=== PATIENT | male | born 1975 | race Caucasian/White ===

== ENCOUNTER 2019-09-28 18:07 | Emergency (ER) | payer OTHER, BC, SELFPAY ==
[2019-09-28] VITALS (15 sets, daily range): BP systolic 134–149; BP diastolic 93–107; PULSE 61–83; RESP 8–20; TEMP 37.1; O2SAT 95–99
[2019-09-28] MEDS: Metoprolol 50 MG TAB 100 MG PO (18:46)
--- NOTE | 2019-09-28 18:48 | ED.GENADUL_ITS ---
Discharge Plan Disposition Patient Disposition: HOME Condition: Stable Discharge Details Chief Complaint: Palpitatns Clinical Impression: Atrial fibrillation Primary Care Provider: Clayton Reid ED Provider: Bunny Petersen Home Meds and New Rx's Prescriptions: No Action metoprolol succinate 100 mg Tablet Extended Release 24 Hr 100 mg PO DAILY RF: 0 aspirin [Aspir-81] 81 MG tablet,delayed release (DR/EC) 81 mg PO DAILY RF: 0 Discharge Instructions Instructions: A-fib (Atrial Fibrillation) (ED) Additional Instructions: At this time you are asymptomatic and have not gone into atrial fibrillation while under my care. I spoke with your cardiology team, they recommend increasing metoprolol 100 mg to twice a day. I do recommend that you follow-up on Saturday as already scheduled. Please watch for new or worsening symptoms and return to the ER for any concerns Medical Decision Making 44-year-old gentleman who is currently being followed by cardiology, wearing a Holter monitor, told to come to the ER today because apparently he went into atrial fibrillation multiple times. He never felt this and is currently asymptomatic. He appears well, nontoxic and his examination is unremarkable. Will obtain EKG and reach out to his cardiology team. EKG obtained at 1816, reviewed and interpreted with Dr. Matta. Reveals sinus bradycardia, ventricular rate of 59. No acute ST elevation or depression segments. No atrial fibrillation. I was able to speak with his basketballs and footballs reverser, Dr. Mark. He received multiple calls and rhythm strips through his Holter monitor company. Patient appears to have gone in and out of atrial fibrillation multiple times today, heart rate going as high as 180s. He recommends increasing his metoprolol 100 mg from once a day to twice daily. Will give him a dose now. He recommends additional monitoring in the ER and he will follow him as an outpatient on Saturday. Discussed this plan with patient. He is willing to stay for another half an hour but needs to get home and feed his children. Will observe him for another half an hour and if remains asymptomatic we will discharge. Patient received his p.o. metoprolol. He remains asymptomatic under my care and was observed in the ER for over an hour. He was on the playground monitor, no evidence of going in or out of atrial fibrillation. Upon reevaluation his heart rate was in the 70s HPI General Mode of arrival: ambulatory . Date/Time Provider Initiated Documentation: 09/28/19 18:11 . Limitations to Documentation: no limitations . Information obtained by: patient . HPI Narrative: This is a 44-year-old gentleman with a history of atrial fibrillation presenting to the ER at the request of his cardiology team. He received a call from his basketballs and footballs reverser at the [facility] stating that his Holter monitor revealed he went into atrial fibrillation multiple times today, rate in the 170s and 180s. Patient reports that he felt no evidence that he went into atrial fibrillation, denies chest pain, shortness of breath, palpitations. He does admit to increased stress recently. He originally sought medical attention because he did have palpitations and felt as though there is something wrong, it turned out after wearing a Holter monitor for 9 days, that he was going to atrial fibrillation. He is currently taking oral metoprolol once a day, 100 mg. He denies any headache, recent illness or trauma, abdominal pain, nausea, vomiting, swelling or pain in his legs, numbness, tingling, weakness. Related Data Home Medications Medication Instructions Recorded Confirmed aspirin [Aspir-81] 81 mg PO DAILY 09/22/16 09/28/19 metoprolol succinate 100 mg PO DAILY 09/28/19 09/28/19 Allergies Allergy/AdvReac Type Severity Reaction Status Date / Time clindamycin Allergy Mild Skin Rash Unverified 09/28/19 18:17 General Stated Complaint: Palpitatns MAKAYLA: 3 Review of Systems Constitutional Constitutional: Denies fatigue, Denies fever(s) and Denies weakness Cardiovascular Cardiovascular: Denies chest pain and Denies dyspnea Respiratory Respiratory: Denies cough and Denies dyspnea Gastrointestinal Gastrointestinal: Denies abdominal pain, Denies nausea and Denies vomiting Musculoskeletal Musculoskeletal: Denies back pain, Denies numbness and Denies tingling Integumentary/Breasts Skin/Breast: Denies rash Neurologic Neurologic: Denies numbness, Denies tingling and Denies weakness Endocrine Endocrine: Denies fatigue [facility] Social History Smoking/Tobacco Use Status: Never Alcohol Intake: current Alcohol Intake frequency: 0-2 drinks per day Drug use: Never Substance use type: does not use Do you feel safe at home: Yes Do you feel safe in your relationship?: Yes Exam Const General: cooperative, healthy appearing, comfortable and no acute distress Orientation: alert, awake and oriented x3 HENMT Head: normal to inspection, normocephalic and atraumatic Mouth: moist mucous membranes Eyes Conjunctivae: conjunctivae normal Neck Neck: normal visual inspection, full ROM, trachea midline and supple Chest Chest: normal inspection of the chest and normal palpation of entire chest wall Resp Effort & Inspection: normal respiratory effort and able to speak in complete sentences Auscultation: clear to auscultation bilaterally Cardio Rate: regular rate Rhythm: regular rhythm GI Palpation: soft and nontender Back/Spine/Pelvis Back: No back tenderness Skin General skin exam: no rashes or lesions noted Neuro General: patient alert, patient awake, moves all extremities and no focal motor deficits Sensory Exam: no sensory deficits noted Extrem General: normal to inspection, no pedal edema, no calf tenderness and normal gait Psych Appearance: grossly normal Mental Status: mental status grossly normal Course Vital Signs Vital signs: Vital Signs Temperature 37.1 C 09/28/19 18:12 Pulse 80 09/28/19 18:12 Respiratory Rate 12 09/28/19 18:12 Blood Pressure 149/107 H 09/28/19 18:12 Pulse Oximetry 95 09/28/19 18:12 Temperature 37.1 C 09/28/19 18:12 Temperature Source Skin 09/28/19 18:12 Pulse 71 09/28/19 18:22 Pulse 66 09/28/19 18:22 Respiratory Rate 13 09/28/19 18:22 Respiratory Effort Non-Labored 09/28/19 18:23 Blood Pressure 149/107 H 09/28/19 18:22 Blood Pressure Mean 116 09/28/19 18:22 Blood Pressure Position Sitting 09/28/19 18:12 Pulse Oximetry 99 09/28/19 18:22 Oxygen Delivery Method Room Air 09/28/19 18:12 Oxygen Flow Rate 0 09/28/19 18:12 Pain Level 0 09/28/19 18:12
== END 2019-09-28 19:28 | disposition home or self-care (01) ==
PROVIDERS: Emergency Provider Physician Assistant; PCP Family Medicine
DX: I48.91 Unspecified atrial fibrillation (principal)
CPT/HCPCS: 93005; 99284; 93010

== ENCOUNTER 2020-04-28 03:21 | Outpatient (CLI) | payer BC, SELFPAY ==
[2020-04-28 15:55] LABS: Abs Immature Grans 0.03 10^3/uL (0.0-0.06); Absolute Basophil Count 0.05 10^3/uL (0.0-0.2); Absolute Eosinophil Count 0.13 10^3/uL (0.0-0.7); Absolute Lymphocyte Count 2.97 10^3/uL (1.2-3.4); Absolute Monocyte Count 0.79 10^3/uL (0.1-0.8); Absolute Neutrophil Count 5.65 10^3/uL (1.2-6.7); Basophils % 0.5; Eosinophils % 1.4; HGB 16.8 g/dL (13.5-17.5); Immature Grans % 0.3; Lymphocytes % 30.9; MCH 30.4 pg (27.0-33.0); MPV 8.5 fL (8.0-11.0); Monocytes % 8.2; Neutrophils % 58.7; Nucleated RBC 0 %; Platelet Count 270 10^3/uL (130-400); RBC 5.52 10^6/uL (4.36-5.78); RDW 12.2 % (11.8-14.1); RDW-SD 38.7 fL; WBC 9.62 10^3/uL (4.4-10.8)
[2020-04-28 18:06] LABS: Calculated LDL 113 mg/dL (<100); Cholesterol 191 mg/dL (<200); HDL Cholesterol 29 mg/dL (40-60); Triglyceride 249 mg/dL (<150)
== END 2020-04-28 03:41 ==
PROVIDERS: PCP Family Medicine; Visit Provider Family Medicine
DX: E29.1 Testicular hypofunction (principal)
CPT/HCPCS: 36415; 80061; 85025

== ENCOUNTER 2020-10-03 19:29 | Emergency (ER) | payer OTHER, SELFPAY ==
[2020-10-03 19:30] VITALS: BP 149/90; PULSE 102; RESP 18; TEMP 36.8; O2SAT 98
--- NOTE | 2020-10-03 19:43 | ED.GENADUL_ITS ---
Discharge Plan Disposition Patient Disposition: HOME Condition: Good Discharge Details Clinical Impression: Knee swelling Primary Care Provider: Clayton Reid ED Provider: Gloria Ibanez Home Meds and New Rx's Prescriptions: Continued metoprolol succinate 100 mg Tablet Extended Release 24 Hr 100 mg PO DAILY RF: 0 aspirin [Aspir-81] 81 MG tablet,delayed release (DR/EC) 81 mg PO DAILY RF: 0 diltiazem HCl 120 mg capsule,extended release 24 hr 120 mg PO DAILY RF: 0 lisinopril-hydrochlorothiazide 20-25 mg tablet 1 tab PO DAILY RF: 0 Discharge Instructions Instructions: Knee Sprain (ED), Hinged Knee Brace (ED) Additional Instructions: Encourage rest, ice, elevation. Tylenol and ibuprofen as needed for discomfort. Please continue with hinged knee brace until reevaluated by orthopedics. Please call orthopedics tomorrow to schedule appointment, number listed below. If you develop any new or worsening symptoms please seek care urgently once again. Referrals: Joce Small MD [MD CONSULTING PHYSICIAN] - Discharge Data Discharge Date/Time-TO BE ENTERED AT DEPARTURE: 10/03/20 22:24 Medical Decision Making Patient is a pleasant 45-year-old male presenting today with chief complaint of left knee injury. 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 Reports that when in his position one of his cows began kicking his left knee. States that the knee was wedged between the cow and the metal bars of the fence. He denies previous injury or surgery to this knee. FINDINGS: Bones/joints: Small joint effusion. Small superior pole patellar enthesophyte. Subtle cortical irregularity of the lateral margin of the lateral tibial articular surface may represent acute fracture. Knee joint spacing and alignment are anatomic. Normal osseous mineralization. Soft tissues: Normal. IMPRESSION: Possible tiny mildly displaced fracture of lateral margin of the lateral tibial articular surface. Based on mechanism and patient area of discomfort, I am concerned for tibial fracture and feel that CT for further evaluation is appropriate FINDINGS: Bones/joints: Small joint effusion. Small superior pole patellar enthesophyte. [id number] lateral patellofemoral compartment joint space narrowing. Cortical defect of the lateral tibial articular surface has a chronic appearance, likely related to prior trauma. No acute fracture. ACL and PCL appear to be intact. Soft tissues: Normal. IMPRESSION: 1. No acute fracture. Lateral tibial articular surface cortical abnormality is likely related to prior trauma. 2. Small joint effusion. 3. Lateral patellofemoral compartment degenerative joint space narrowing. 4. Superior pole patellar enthesophyte, consistent with chronic distal quadriceps enthesopathy. Discussed this finding with the patient. Fractures been ruled out. Advised MCL strain based on physical exam as well contusion. Encourage rest, ice, elevation. Tylenol and ibuprofen as needed for discomfort. We will place in a hinged knee brace for support. Advised follow-up with orthopedics. Will call tomorrow to schedule follow-up appointment. Return precautions were discussed. We discussed activities that he should avoid. All the question and concerns were addressed and he is in agreement this plan HPI General Mode of arrival: ambulatory . Date/Time Provider Initiated Documentation: 10/03/20 19:42 . Limitations to Documentation: no limitations . Information obtained by: patient and RN notes reviewed . History of Present Illness 45 year old M presents to the emergency department with the chief complaint of left knee pain, described as moderate, with intensity rated at 3. Quality is described as aching, and is localized to the left and lower extremity. Patient reports no radiation. Patient started experiencing this hour(s) and it has been constant. Immobilization improves symptom(s), Movement worsens symptoms (weight bearing) . Patient notes no other symptoms.. Patient did receive the following treatments prior to arrival, cold therapy Related Data Home Medications Medication Instructions Recorded Confirmed aspirin [Aspir-81] 81 mg PO DAILY 09/22/16 10/03/20 metoprolol succinate 100 mg PO DAILY 09/28/19 10/03/20 diltiazem HCl 120 mg PO DAILY 10/03/20 10/03/20 lisinopril-hydrochlorothiazide 1 tab PO DAILY 10/03/20 10/03/20 Allergies Allergy/AdvReac Type Severity Reaction Status Date / Time clindamycin Allergy Mild Skin Rash Unverified 10/03/20 19:39 General Stated Complaint: Orthopedic MAKAYLA: 3 Review of Systems Constitutional Constitutional: Reports as per HPI, Denies chills, Denies fever(s), Denies headache(s) and Denies weakness ENT Ears, Nose, Mouth, and Throat: Denies headache(s) Cardiovascular Cardiovascular: Reports as per HPI Respiratory Respiratory: Reports as per HPI and Denies cough Musculoskeletal Musculoskeletal: Reports as per HPI and Denies tingling Integumentary/Breasts Skin/Breast: Reports as per HPI, Denies rash and Denies wounds Neurologic Neurologic: Reports as per HPI, Denies headache(s), Denies tingling, Denies paresthesias and Denies weakness [facility] Social History Smoking/Tobacco Use Status: Never Smoking risk assessment performed?: Yes Alcohol Intake: current Alcohol Intake frequency: 0-2 drinks per day Drug use: Never Substance use type: does not use Do you feel safe at home: Yes Do you feel safe in your relationship?: Yes Exam Const General: cooperative, healthy appearing, comfortable, no acute distress, well d eveloped and well groomed Nutritional Appearance: average body habitus and well nourished Orientation: alert and awake Resp Effort & Inspection: normal respiratory effort, able to speak in complete sentences and no respiratory distress Cardio Rate: regular rate Rhythm: regular rhythm Skin General skin exam: no rashes or lesions noted Lesions: no lesions Rashes: no rashes Trauma: no lacerations or abrasions Neuro General: patient alert and patient awake Cognition: normal cognition Speech: speech normal Gait: normal gait Motor: muscle tone normal throughout Sensory Exam: no sensory deficits noted Extrem Left lower extremity: normal to inspection, full ROM (pain with full flexion), normal capillary refill, knee Details: normal to inspection, tenderness Location: of the medial joint line, normal ROM, knee ligament exam normal Details: anterior drawer test normal, posterior drawer test normal and varus stress test normal and knee ligament exam abnormal Details: valgus stress test; no swelling, no abrasions, no lacerations, no ecchymosis, no crepitus and no deformity, lower leg Details: normal to inspection and no edema; no erythema, no tenderness, no localized swelling and no deformity and foot Details: normal capillary refill and vascular exam Details: dorsalis pedis pulse present and posterior tibial pulse present; no tenderness Psych Appearance: grossly normal and well kempt Mental Status: mental status grossly normal Speech and Movement: speech and movement normal Course Vital Signs Vital signs: Vital Signs Temperature 36.8 C 10/03/20 19:30 Pulse 102 H 10/03/20 19:30 Respiratory Rate 18 10/03/20 19:30 Blood Pressure 149/90 H 10/03/20 19:30 Pulse Oximetry 98 10/03/20 19:30 Temperature 36.8 C 10/03/20 19:30 Temperature Source Skin 10/03/20 19:30 Pulse 102 H 10/03/20 19:30 Respiratory Rate 18 10/03/20 19:30 Respiratory Effort 10/03/20 19:42 Blood Pressure 149/90 H 10/03/20 19:30 Blood Pressure Position Sitting 10/03/20 19:30 Pulse Oximetry 98 10/03/20 19:30 Oxygen Delivery Method Room Air 10/03/20 19:30 Oxygen Flow Rate 0 10/03/20 19:30 Pain Level 3 10/03/20 19:30 Comment 10/03/20 19:30
--- NOTE | 2020-10-03 19:45 | DI.RAD_ITS ---
Exam(s) XR KNEE LT 4V AP,LAT,KENTRELL,PAT EXAM: XR KNEE LT 4V AP,LAT,KENTRELL,PAT CLINICAL HISTORY: kicked by cow, medial pain TECHNIQUE: COMPARISON: No exams were available for comparison FINDINGS: Four views were obtained. There is cortical deformity of the lateral aspect of the proximal tibia xavi picious for fracture, however CT examination was subsequently obtained and showed this bony deformity to be old. No other bony abnormality seen. Knee joint effusion noted. IMPRESSION: RADIATION DOSE DELIVERED: Total DLP
[2020-10-03] MEDS: Ibuprofen 600 MG TAB PO (19:57)
[2020-10-03] MEDS: Acetaminophen 325 MG TAB 650 MG PO (19:57)
--- NOTE | 2020-10-03 20:15 | DI.CT_ITS ---
Exam(s) CT LOWER EXTREMITY LT WO EXAM: CT LOWER EXTREMITY LT WO CLINICAL HISTORY: concern for possible tibial fracture TECHNIQUE: COMPARISON: No exams were available for comparison FINDINGS: CT examination of the left knee was performed to evaluate possible fracture seen on plain films today . There is cortical deformity which appears old of the most lateral aspect of the tibial articular langley rface. There is no evidence of acute fracture or dislocation. There is moderate-sized joint effusion. Prominent superior pole patellar enthesophyte noted. No other bony abnormality seen. IMPRESSION: RADIATION DOSE DELIVERED: 236.75mGy.cm Total DLP RADIATION OPTIMIZATION: All CT scans at this facility use at least one of these dose optimization te chniques: automated exposure control; mA and/or kV adjustment per patient size (includes targeted exa ms where dose is matched to clinical indication); or iterative reconstruction. Is
--- NOTE | 2020-10-03 20:25 | DI.VRAD_ITS ---
PROCEDURE INFORMATION: Exam: XR Left Knee Exam date and time: 10/03/2020 8:10 PM Age: 45 years old Clinical indication: Knee; Left; Patient HX: Kicked by cow, medial pain TECHNIQUE: Imaging protocol: XR Left knee. Views: 4 or more views. COMPARISON: US LEFT EXTREMITY ULTRASOUND 09/25/2016 5:18 PM FINDINGS: Bones/joints: Small joint effusion. Small superior pole patellar enthesophyte. Subtle cortical irregularity of the lateral margin of the lateral tibial articular surface may represent acute fracture. Knee joint spacing and alignment are anatomic. Normal osseous mineralization. Soft tissues: Normal. IMPRESSION: Possible tiny mildly displaced fracture of lateral margin of the lateral tibial articular surface. Dictated and Authenticated by: Clayton Howell MD. Ordering:ROSA Castro MD
[2020-10-03 21:25] VITALS: BP 130/67; PULSE 80; RESP 18; O2SAT 96
--- NOTE | 2020-10-03 21:32 | DI.VRAD_ITS ---
PROCEDURE INFORMATION: Exam: CT Left Lower Extremity Without Contrast, Knee Exam date and time: 10/03/2020 8:29 PM Age: 45 years old Clinical indication: Pain; Knee; Left; Patient HX: Concern for possible tibial fracture TECHNIQUE: Imaging protocol: CT of the Left lower extremity without contrast was performed. Exam focused on the knee. COMPARISON: CR XR KNEE LT 4V AP,LAT,KENTRELL,PAT 10/03/2020 8:16 PM FINDINGS: Bones/joints: Small joint effusion. Small superior pole patellar enthesophyte. [id number] lateral patellofemoral compartment joint space narrowing. Cortical defect of the lateral tibial articular surface has a chronic appearance, likely related to prior trauma. No acute fracture. ACL and PCL appear to be intact. Soft tissues: Normal. IMPRESSION: 1. No acute fracture. Lateral tibial articular surface cortical abnormality is likely related to prior trauma. 2. Small joint effusion. 3. Lateral patellofemoral compartment degenerative joint space narrowing. 4. Superior pole patellar enthesophyte, consistent with chronic distal quadriceps enthesopathy. Dictated and Authenticated by: Clayton Howell MD. Ordering:ROSA Castro MD
== END 2020-10-03 22:24 | disposition home or self-care (01) ==
PROVIDERS: Emergency Provider Physician Assistant; PCP Family Medicine
DX: M25.562 Pain in left knee (principal); W55.22XA Struck by cow, initial encounter; Y92.79 Other farm location as the place of occurrence of the external cause
CPT/HCPCS: 29505; 99284; 73564; 73700; 99283

== ENCOUNTER 2021-03-26 16:15 | Emergency (ER) | payer BC, SELFPAY ==
[2021-03-26 16:25] VITALS: BP 131/85; PULSE 83; RESP 18; TEMP 36.8; O2SAT 98
--- NOTE | 2021-03-26 16:30 | DI.CT_ITS ---
Exam(s) CT ABDOMEN PELVIS W EXAM: CT ABDOMEN PELVIS W CLINICAL HISTORY: LLQ pain. TECHNIQUE: Imaging Protocol: Axial computed tomography images with coronal and sagittal reformatted images were created and reviewed CONTRAST MATERIAL: Intravenous: Omnipaque 100cc Oral: None COMPARISON: No exams were available for comparison FINDINGS: VISUALIZED LUNG BASES: No nodules nor pleural effusions evident. ABDOMEN: There is no ascites. LIVER: Liver is hypodense implying steatosis. There are no discrete focal hepatic lesions identified . There is no dilatation of intrahepatic ducts. GALLBLADDER/BILIARY: No obvious gallbladder pathology. CBD is not dilated. PANCREAS: No evidence of pancreatic mass nor dilatation of the pancreatic duct. SPLEEN: Spleen is not enlarged. No obvious intrasplenic lesions. Splenic and portal veins are paten t. ADRENALS: There are no significant adrenal masses. KIDNEYS:No cysts evident. No solid renal masses. No calculi nor hydronephrosis.. ABDOMINAL AORTA: Abdominal aorta is not enlarged. LYMPH NODES:There is no retroperitoneal nor paraaortic adenopathy. ABDOMINAL WALL: No evidence of significant anterior abdominal wall nor inguinal hernia. GI: There is very mild streaking in the fat around an area of the descending-left colon above the lev el of the iliac crest. There is a single diverticulum in this area. Either diverticulitis or mid de scending colonic epiploic appendagitis. PELVIS: GI: No evidence of appendicitis.No evidence of sigmoid diverticulitis. LYMPH NODES: There is no intrapelvic nor inguinal adenopathy. REPRODUCTIVE: Prostate gland not enlarged. Seminal vesicles unremarkable. URINARY BLADDER: No calculi nor obvious masses evident OSSEOUS: No significant osseous lesions. IMPRESSION: 1. There is subtle fat stranding at approximately the mid descending colon either related to mild/ear ly diverticulitis or epiploic appendagitis at this level. 2. No evidence of appendicitis. 3. No other significant findings RADIATION DOSE DELIVERED: 1,602.11mGy.cm Total DLP DATA REPOSITORY: All CT scans at this facility are submitted to the National Radiology Data Registry (NRDR) Dose Index Registry (DIR) with the [employer] ([employer]). RADIATION OPTIMIZATION: All CT scans at this facility use at least one of these dose optimization te chniques: automated exposure control; mA and/or kV adjustment per patient size (includes targeted exa ms where dose is matched to clinical indication); or iterative reconstruction.
--- NOTE | 2021-03-26 16:47 | ED.GENADUL_ITS ---
Discharge Plan Disposition Patient Disposition: HOME Condition: Stable Discharge Details Clinical Impression: Epiploic appendagitis Primary Care Provider: Clayton Reid ED Provider: Sandy López Home Meds and New Rx's Prescriptions: Continued aspirin [Aspir-81] 81 MG tablet,delayed release (DR/EC) 81 mg PO DAILY RF: 0 diltiazem HCl 120 mg capsule,extended release 24 hr 120 mg PO DAILY RF: 0 lisinopril-hydrochlorothiazide 20-25 mg tablet 1 tab PO DAILY RF: 0 Discharge Instructions Additional Instructions: Use caution when taking ibuprofen with lisinopril You can take 1-2 tabs of ibuprofen for no more than 3 days It may be better to take 600 mg of ibuprofen at night to help with your pain and take Tylenol 650 mg every 4 hours This is a self-limited diagnosis and will usually resolve on its own Should you develop worsening pain, fever, chills, uncontrolled nausea or vomiting, I recommend you reevaluated in the emergency room Recheck with primary care physician this week recommended Referrals: Clayton Reid [Primary Care Provider] - Medical Decision Making Patient appears well, CT scan shows epiploic appendagitis, supportive therapy indicated, patient is on lisinopril, discussed risk associated with taking nonsteroidals with lisinopril on patient will take sparingly Patient is otherwise resting comfortably in room and has been declined any opiate analgesia Given the dose of Toradol prior to discharge Diagnostic labs are reassuring Early return discussed and patient expressed understanding, recheck in 24 to 48 hours recommended Medical Records Medical records reviewed: Yes I reviewed the patient's medical records. Lab Data Lab results reviewed: Yes I reviewed the patient's lab results. HPI General Mode of arrival: ambulatory . Date/Time Provider Initiated Documentation: 03/26/21 16:18 . Limitations to Documentation: no limitations . Information obtained by: patient . HPI Narrative: 45-year-old gentleman presents with left lower quadrant pain for the last 3 days. Intermittent nausea without vomiting. Denies any fever, urinary symptoms, chest pain, shortness of breath, or any additional complaints at this time. He denies any testicular tenderness or dysuria or frequency. Denies known exacerbating or alleviating factors. Related Data Home Medications Medication Instructions Recorded Confirmed aspirin [Aspir-81] 81 mg PO DAILY 09/22/16 03/26/21 diltiazem HCl 120 mg PO DAILY 10/03/20 03/26/21 lisinopril-hydrochlorothiazide 1 tab PO DAILY 10/03/20 03/26/21 Allergies Allergy/AdvReac Type Severity Reaction Status Date / Time clindamycin Allergy Mild Skin Rash Unverified 03/26/21 16:28 General Stated Complaint: Abd Prob MAKAYLA: 3 Review of Systems All systems reviewed & are unremarkable except as noted in HPI and below PFSH Medical History Cellulitis of left foot (10/03/16) Social History Smoking/Tobacco Use Status: Never Smoking risk assessment performed?: Yes Alcohol Intake: current Alcohol Intake frequency: 0-2 drinks per day Drug use: Never Substance use type: does not use Do you feel safe at home: Yes Do you feel safe in your relationship?: Yes Exam Const General: cooperative and comfortable Orientation: alert and oriented x3 Eyes Pupils: PERRL Resp Effort & Inspection: normal respiratory effort Cardio Rate: regular rate Rhythm: regular rhythm GI Inspection: normal to inspection Other: Left lower quadrant tenderness without rebound or guarding, no CVA t enderness Skin General skin exam: no rashes or lesions noted Neuro General: patient alert and patient oriented x3 Extrem General: normal to inspection Course Vital Signs Vital signs: Vital Signs Temperature 36.8 C 03/26/21 16:25 Pulse 83 03/26/21 16:25 Respiratory Rate 18 03/26/21 16:25 Blood Pressure 131/85 03/26/21 16:25 Pulse Oximetry 98 03/26/21 16:25 Temperature 36.8 C 03/26/21 16:25 Temperature Source Temporal Artery Scan 03/26/21 16:25 Pulse 83 03/26/21 16:25 Respiratory Rate 18 03/26/21 16:25 Respiratory Effort Non-Labored 03/26/21 16:29 Blood Pressure 131/85 03/26/21 16:25 Blood Pressure Position Sitting 03/26/21 16:25 Pulse Oximetry 98 03/26/21 16:25 Oxygen Delivery Method Room Air 03/26/21 16:25 Oxygen Flow Rate 0 03/26/21 16:25 Pain Level 8 03/26/21 16:29 PAWSS Have you Been Recently Intoxicated or Drunk Within the Last 30 days?: No Have you Ever Experienced Previous Episodes of Alcohol Withdrawal?: No Have you ever Experienced Withdrawal Seizures?: No Have you ever Experienced Delirium Tremens(DT)s?: No Result: 0
[2021-03-26 16:59] LABS: Bilirubin Negative (Negative); Blood Trace-lysed (Negative); Clarity Clear (Clear); Glucose Negative (Negative); Ketones Trace mg/dL (Negative); Leukocyte Esterase Negative (Negative); Nitrite Negative (Negative); Specific Gravity >= 1.030 (1.005-1.025); Urobilinogen 0.2 EU/dL (Up TO 0.2)
[2021-03-26 17:07] LABS: Bacteria Negative HPF (Negative); C & S Indicated? Yes; Casts Negative LPF (Negative); Crystals Few Calcium Oxalate HPF (Negative); Epithelial Cells Few HPF (Negative); Mucus Negative (Negative); RBC Negative HPF (0-2)
[2021-03-26 17:13] LABS: Abs Immature Grans 0.03 10^3/uL (0.0-0.06); Absolute Eosinophil Count 0.18 10^3/uL (0.0-0.7); Absolute Lymphocyte Count 3.18 10^3/uL (1.2-3.4); Absolute Monocyte Count 0.94 10^3/uL (0.1-0.8); Basophils % 0.9; Eosinophils % 1.5; HCT 47.1 % (40.0-50.0); HGB 16.1 g/dL (13.5-17.5); Immature Grans % 0.3; Lymphocytes % 27.1; MCH 29.5 pg (27.0-33.0); MCHC 34.2 % (32.0-36.0); MCV 86.3 fL (80-95); MPV 8.8 fL (8.0-11.0); Neutrophils % 62.2; Nucleated RBC 0 %; Platelet Count 261 10^3/uL (130-400); RBC 5.46 10^6/uL (4.36-5.78); RDW 11.9 % (11.8-14.1); RDW-SD 37.2 fL; WBC 11.75 10^3/uL (4.4-10.8)
[2021-03-26 17:14] LABS: Absolute Basophil Count 0.11 10^3/uL (0.0-0.2); Absolute Neutrophil Count 7.31 10^3/uL (1.2-6.7)
[2021-03-26 17:22] LABS: ALT 49 U/L (16-63); AST 17 U/L (15-37); Albumin 4.1 g/dL (3.4-5.0); Alkaline Phosphatase 73 U/L (46-116); BUN 16 mg/dL (7-18); Bilirubin, Total 0.4 mg/dL (0.2-1.0); CREATININE 1.1 mg/dL (0.70-1.30); Calcium 8.6 mg/dL (8.5-10.1); Chloride 104 mmol/L (98-107); Glucose 128 mg/dL (74-106); Lipase 205 U/L (73-393); Potassium 3.7 mmol/L (3.5-5.1); Sodium 143 mmol/L (136-145); Total Protein 7.5 g/dL (6.4-8.2)
[2021-03-26] MEDS: Normal Saline - Diluent 50 ML VIAL IV (17:47)
[2021-03-26] MEDS: Normal Saline Flush 10 ML SYR IVP (17:49)
[2021-03-26] MEDS: Omnipaque 350 MG/ML 100 ML BTL IJ (17:49)
--- NOTE | 2021-03-26 18:28 | DI.VRAD_ITS ---
PROCEDURE INFORMATION: Exam: CT Abdomen And Pelvis With Contrast Exam date and time: 03/26/2021 4:39 PM Age: 45 years old Clinical indication: Other: Llq pain TECHNIQUE: Imaging protocol: Computed tomography of the abdomen and pelvis with contrast. Total images: 1401 Contrast material: OMNIPAQUE 350; Contrast volume: 100 ml; Contrast route: INTRAVENOUS (IV); COMPARISON: CT LOWER EXTREMITY LT WO 10/03/2020 9:08 PM FINDINGS: Lungs: Lung bases are unremarkable. Liver: Moderate hepatic steatosis. Gallbladder and bile ducts: No calcified stones, wall thickening or biliary dilatation. Pancreas: No mass or peripancreatic edema. Spleen: Homogeneously enhances. No splenomegaly. Adrenal glands: No adrenal nodule. Kidneys and ureters: Kidneys homogeneously enhance. No hydronephrosis. No renal or ureteral calculi. Stomach and bowel: Adjacent to the left mid descending colon is a focal area of fat density associated with mild mesenteric stranding. This is located along the anti mesenteric border of the colon. There are couple of tiny left-sided colonic diverticula. No small bowel dilatation. Appendix: No evidence of appendicitis. Intraperitoneal space: No free air or free fluid. Vasculature: No abdominal aortic aneurysm. Lymph nodes: No significant adenopathy. Urinary bladder: No definite bladder wall thickening. Reproductive: Unremarkable as visualized. Bones/joints: Lower thoracic and lumbar spondylosis. Soft tissues: Extra-abdominal soft tissues are unremarkable. IMPRESSION: Findings probably secondary to mid descending colonic epiploic appendagitis. Changes of early diverticulitis less likely consideration. Dictated and Authenticated by: Joce Matias MD. Ordering:RADHA Delgado MD
[2021-03-26 18:39] VITALS: BP 130/75; PULSE 82; RESP 18; TEMP 36.8; O2SAT 98
[2021-03-26] MEDS: Ketorolac 15 MG/ML VIAL IVP (19:00)
[2021-03-26 19:02] VITALS: BP 130/75; PULSE 82; RESP 18; TEMP 36.8; O2SAT 98
== END 2021-03-26 19:07 | disposition home or self-care (01) ==
PROVIDERS: Emergency Provider Physician Assistant; PCP Family Medicine
DX: K63.89 Other specified diseases of intestine (principal)
CPT/HCPCS: 36415; 80053; 83690; 96374; 99285; 74177; 81003; 81015; 85025; 87086; 99284; J1885; J3490

== ENCOUNTER 2022-09-28 08:43 | Outpatient (RCR) | payer BC, SELFPAY ==
--- NOTE | 2022-09-28 08:45 | HOLTER_ITS ---
APPROVED REPORT Conclusion This is a 48-hour Holter monitor Rhythm throughout was sinus with an average heart rate of 86. Minimum was 53 maximum 128 No significant dysrhythmias were recorded. Specifically there was no atrial fibrillation, no high-gr eveline A-V block, no pauses greater than 3 seconds No patient symptoms were reported
== END 2022-10-24 23:59 | disposition home or self-care (01) ==
LOC: CARDOPNVT 08:43
PROVIDERS: PCP Family Medicine; Visit Provider Nurse Practitioner Family
DX: I48.91 Unspecified atrial fibrillation (principal)
CPT/HCPCS: 93225; 93226

== ENCOUNTER 2022-09-28 15:06 | Outpatient (REF) | payer BC, SELFPAY ==
[2022-09-28 15:43] LABS: Abs Immature Grans 0.02 10^3/uL (0.0-0.06); Absolute Basophil Count 0.12 10^3/uL (0.0-0.2); Absolute Eosinophil Count 0.61 10^3/uL (0.0-0.7); Absolute Lymphocyte Count 2.62 10^3/uL (1.2-3.4); Absolute Monocyte Count 0.54 10^3/uL (0.1-0.8); Absolute Neutrophil Count 4.28 10^3/uL (1.2-6.7); Basophils % 1.5; Eosinophils % 7.4; HGB 15.9 g/dL (13.5-17.5); Immature Grans % 0.2; MCH 29.1 pg (27.0-33.0); MCHC 34.6 % (32.0-36.0); MCV 84 fL (80-95); MPV 9.1 fL (8.0-11.0); Monocytes % 6.6; Neutrophils % 52.3; Platelet Count 242 10^3/uL (130-400); RBC 5.47 10^6/uL (4.36-5.78); RDW 12.2 % (11.8-14.1); RDW-SD 36.9 fL; WBC 8.19 10^3/uL (4.4-10.8)
[2022-09-28 16:16] LABS: ALT 47 U/L (16-63); AST 18 U/L (15-37); Albumin 4.1 g/dL (3.4-5.0); Alkaline Phosphatase 92 U/L (46-116); Anion Gap 7.7 mmol/L (3-11); BUN 13 mg/dL (7-18); Bilirubin, Total 0.6 mg/dL (0.2-1.0); CO2 30.3 mmol/L (21.0-32.0); Calcium 8.7 mg/dL (8.5-10.1); Calculated LDL 73 mg/dL (<100); Chloride 102 mmol/L (98-107); Cholesterol 138 mg/dL (<200); Glucose 137 mg/dL (74-106); HDL Cholesterol 37 mg/dL (40-60); Potassium 4.1 mmol/L (3.5-5.1); Sodium 140 mmol/L (136-145); TSH (W/Ref FT4) 2.22 uIU/mL (0.36-3.74); Total Protein 7.3 g/dL (6.4-8.2); Triglyceride 144 mg/dL (<150)
[2022-09-28 16:20] LABS: Hemoglobin A1C 6.7 % (<5.7)
== END 2022-09-28 15:07 | disposition home or self-care (01) ==
LOC: NCHCN 15:06
PROVIDERS: PCP Family Medicine; Visit Provider Nurse Practitioner Family
DX: Z00.00 Encounter for general adult medical examination without abnormal findings (principal); I10 Essential (primary) hypertension; I48.0 Paroxysmal atrial fibrillation; E66.01 Morbid (severe) obesity due to excess calories; Z13.1 Encounter for screening for diabetes mellitus
CPT/HCPCS: 80053; 80061; 83036; 84443; 85025

== ENCOUNTER 2023-01-30 16:39 | Outpatient (REF) | payer BC, SELFPAY ==
[2023-02-01 13:19] LABS: Chlamydia Result Negative (Negative); GC Result Negative (Negative)
== END 2023-01-30 16:40 | disposition home or self-care (01) ==
LOC: NCHCN 16:39
PROVIDERS: PCP Family Medicine; Visit Provider Nurse Practitioner Family
DX: Z00.00 Encounter for general adult medical examination without abnormal findings (principal); Z11.3 Encounter for screening for infections with a predominantly sexual mode of transmission
CPT/HCPCS: 87491; 87591

== ENCOUNTER 2023-07-08 07:57 | Day surgery (SDC) | payer BC, SELFPAY ==
--- NOTE | 2023-07-07 16:27 | W.PM.DSUDISC ---
Date of service: 07/08/23 Time of Service: 09:37 Discharge Plan Disposition Patient Disposition: Home Condition: Good Discharge Details Reason For Visit: screening colonoscopy Attending Provider: Lincoln Allison Primary Care Provider: GILMAR DUNCAN Home Meds and New Rx's Prescriptions: Continued Victoza 2-Denny 0.6 mg/0.1 mL (18 mg/3 mL) pen injector 0.6 mg subcut DAILY metformin 500 mg tablet extended release 24 hr 1,000 mg PO BID tadalafil 5 mg tablet 5 mg PO DAILY atorvastatin 40 mg tablet 40 mg PO DAILY losartan-hydrochlorothiazide 50-12.5 mg tablet 1 tab PO HS Patient Comments: TAKE 1 TABLET BY MOUTH ONCE A DAY FOR HIGH BLOOD PRESSURE aspirin [Aspir-81] 81 MG tablet,delayed release (DR/EC) 81 mg PO DAILY diltiazem HCl 120 mg capsule,extended release 24 hr 120 mg PO HS Patient Comments: TAKE ONE CAPSULE BY MOUTH AT BEDTIME Discontinued bisacodyl [Dulcolax (bisacodyl)] 5 mg tablet,delayed release (DR/EC) 5 mg PO ONCE Qty: 4 0RF Rx Instructions: Colonoscopy Bowel Prep- Per Instructions polyethylene glycol 3350 17 gram/dose powder 238 g PO ONCE Qty: 238 0RF Rx Instructions: Colonoscopy Bowel Prep- Per Instructions Discharge Instructions Instructions: Anorectal Abscess and Anal Fistula (GEN), Colorectal Polyps (GEN) Additional Instructions: Toby, we were able to complete your colonoscopy today without any difficulty. I did find a total of 4 polyps that I removed completely. When I have the results of the polyp report, I will be in touch with recommendations for the timing of your next colonoscopy. 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 This is an abnormal connection between the anal canal or rectum and the external skin. I have attached a little bit of information here regarding these types of fistula (or connections). I do think it is smart for you to consider surgical resection of this. Like we talked about beforehand, it would require a different type of anesthetic, and some operative planning as it can be fairly uncomfortable given the location of it. Lets see how you recover from the colonoscopy, and we can always set up an appointment in the office to schedule excision of the fistula after you have given it some consideration if you would like to move forward with that. 1. If tolerated, consume a soft, low fiber diet for 1-2 days. 2[address] Do not drive, drink alcohol, operate machinery, make critical decisions, or do activities that require coordination or balance for 24 hours. 3. Because air was put into your colon during the procedure, expelling air from your rectum (passing gas or farting) is normal. 4. You may not have a bowel movement for 1-3 days because of the colonoscopy prep. This is normal. 5. Go directly to the emergency room if you notice any of the following: Develop chills (warm to touch), or if you have a thermometer and your temperature is above 101 Difficulty breathing or difficultly swallowing Persistent vomiting Severe abdominal pain, other than gas cramps Severe chest pain Black, tarry stools Any bleeding ? exceeding one tablespoon 6. Call your physician if the site where your intravenous was started becomes red, swollen, painful, and warm to touch. 7. Your physician has reviewed your pre-procedure medications. Please continue to take those medications as previously ordered. You will be given specific information/education regarding any changes to your medications before leaving. Activity:: Activity as Tolerated Diet:: As Tolerated Discharge Orders Discharge Orders: Discharge Order (Routine); Ordered 07/07/23 Ordered By: Lincoln Allison DS: Diagnosis Discharge Diagnosis (1) Encounter for screening colonoscopy: Status: Acute Asessment and Plan: Follow-up on polypectomy results
--- NOTE | 2023-07-07 16:29 | COLE_ITS ---
Date of service: 07/08/23 Time of Service: 09:39 Colonoscopy Report Date of procedure: 07/08/23 Pre-op diagnosis general: screening colonoscopy Post-op diagnosis procedure note: other (Fistula in ano, colorectal polyps) Procedure: Colonoscopy Surgeon: Lincoln Allison Anesthesia Type: General:No Airway Estimated blood loss (mL): 10 Pathology: other (Rectal polyps x 2, 0.5 cm cecal polyp, 0.5 cm polyp at 95 cm) Complications: None Disposition: same day Indications: Omid is a 47 year old man who needs a screening colonoscopy Prep: Miralax/Dulcolax Procedure Start Time: 09:14 Procedure End Time: 09:30 Retraction Time: 8 Findings: Fistula in ano, Rectal polyps x 2, 0.5 cm cecal polyp, 0.5 cm polyp at 95 cm Procedure Description: After the induction of monitored anesthetic care, and with the patient in left lateral decubitus position, I began by performing an external anorectal exam.? To the left of the anus, approximately 5 to 6 cm away was a small area of induration on the dermis. Clinical features seem consistent with anorectal fistula. The exact trajectory was difficult to decipher. anal verge was normal. There was no evidence of external hemorrhoids.? Next, I performed a digital rectal exam.? I did not appreciate any abnormal findings.? Next, I advanced a colonoscope into the rectal vault.? I performed retroflexion.? This appeared normal.? Within the lower portion of the rectal vault in the middle were several flat polyps. Narrowband imaging was used to assist with analysis. One had some features consistent with a adenomatous polyp, and this was removed with cold forceps. The rest all appeared benign. One was about 0.5 cm, so I did remove this 1 for pathologic testing. Polypectomies were performed with cold forceps without any significant bleeding. Using insufflation, I then advanced the co lonoscope beyond the rectal folds and into the sigmoid colon before advancing towards the cecum.? The scope was noted to be in the cecum by identification of the ileocecal valve and appendiceal orifice.? Within the cecum was a 0.5 cm flat polyp. This was removed with cold forceps. I then began withdrawing the colonoscope using repeated irrigation as necessary for full evaluation of the colonic mucosa. I found another flat polyp at 95 cm from the anus. This was also flat. It was removed with cold forceps similar to the other polyps. There was no worrisome bleeding here. ?Once the scope was withdrawn to the level of the rectum, great care was taken to examine portions of the rectal folds.? Finally, the scope was withdrawn and the patient was brought to the same-day surgery recovery unit as the anesthetic wore off. ?The findings and instructions were shared with the patient prior to discharge. [place] Bowel Prep [place] Bowel Prep Right Colon: 3 Left Colon: 3 Transverse Colon: 3 Total Score: 9
--- NOTE | 2023-07-08 08:16 | BOWEL_PTH ---
PATIENT: Omid Miller LOC: [facility] U#:[id number] AGE/SX: 47/M ROOM: RE07/08/[address]: Lincoln Allison MD : 1975 BED: DIS: 07/08/2023 SPEC #: [id number] RECD: 07/08/23 13:00 STATUS: HIREN RE #: [id number] MEGAN: 07/08/23 08:[address]: Lincoln Allison DEPT: Surgical Specimen RECD BY: Sandy Riley ENTERED: 07/08/23 13:02 SP TYPE: Bowel OTHR DR: GILMAR DUNCAN, [employer] EDUC[employer] Tissues: 1 - BIOPSY BOWEL 2 - BIOPSY BOWEL 3 - BIOPSY BOWEL Procedures: GROSS AND MICRO LEVEL 4 Comments: [id number]
[2023-07-08 08:20] VITALS: BP 136/85; PULSE 74; RESP 18; TEMP 36.3; O2SAT 98
[2023-07-08] MEDS: Lactated Ringers 1,000 ML 80 ML IV (08:49)
--- NOTE | 2023-07-08 09:04 | ANES.PREOP_ITS ---
General Info Date of Service Date Performed: 07/08/23 Height: 6 ft 1 in Weight: 130 kg Body Mass Index (BMI): 37.8 Surgical Procedure: Operation Date: 07/08/23 09:50 Proposed Procedure Side Surgeon trish Allison MD Meds Allergies and Home Medications Allergies Allergy/AdvReac Type Severity Reaction Status Date / Time clindamycin Allergy Mild Skin Rash Unverified 07/08/23 08:39 Home Medication Medication Instructions Recorded aspirin 81 mg tablet,delayed 81 mg PO DAILY 09/22/16 release (Aspir-) diltiazem HCl 120 mg capsule,24 120 mg PO HS 10/03/20 hr,extended release atorvastatin 40 mg tablet 40 mg PO DAILY 06/19/23 metformin 500 mg tablet,extended 1,000 mg PO BID 06/19/23 release 24hr (osmotic) tadalafil 5 mg tablet 5 mg PO DAILY 06/19/23 liraglutide 0.6 mg/0.1 mL (18 mg/3 0.6 mg subcut DAILY 06/26/23 mL) subcutaneous pen injector ([employer] 2-Denny) losartan 50 mg-hydrochlorothiazide 1 tab PO HS 07/04/23 12.5 mg tablet Current Visit Medications: Current Medications Generic Name Dose Route Start Last Admin Trade Name Freq PRN Reason Stop Dose Admin Hyoscyamine Sulfate 0.125 mg 07/07/23 16:30 Hyoscyamine 0.125 Mg Sl/Oral/Chew SL 08/06/23 16:29 DIRECTED PRN Ringer's Solution 1,000 mls @ 80 mls/hr 07/08/23 06:00 07/08/23 08:49 IV 07/08/23 23:59 80 mls/hr INFUSION KARMEN Administration IV Miscellaneous Supplies 1 each 07/08/23 06:00 Iv Access IV 07/08/23 23:59 DIRECTED KAREMN Ondansetron HCl 4 mg 07/07/23 16:30 Ondansetron 4 Mg/2 Ml Vial IVP 08/06/23 16:29 Q4H PRN PRN Nausea / Vomiting Sodium Chloride 0 ml 07/08/23 06:00 Normal Saline Flush 10 Ml Syr IV 07/08/23 23:59 PRN PRN Sodium Chloride 0 ml 07/08/23 06:00 Normal Saline 10 Ml Vial IJ 07/08/23 23:59 DIRECTED PRN Sterile Water 0 ml 07/08/23 06:00 Water,Injection,Sterile 10 Ml Vial IJ 07/08/23 23:59 DIRECTED PRN PFSH Active Problems Active Problems: Problem Status Onset Code Encounter for screening colonoscopy Z12.11 Hypertension I10 Erectile dysfunction N52.9 Chronic pain G89.29 Morbid obesity E66.01 Anxiety and depression F41.9, F32.A High triglycerides E78.1 Testicular failure E29.1 FABIO (obstructive sleep apnea) G47.33 Dyslipidemia E78.5 Type 2 diabetes mellitus E11.9 Metatarsalgia M77.40 Epiploic appendagitis K63.89 MCL sprain of left knee 10/03/20 S83.412A Contusion of left knee 10/03/20 S80.02XA Knee swelling M25.469 Medical History Medical History History of atrial fibrillation Candidal balanitis Cellulitis of left foot (10/03/16) Tobacco Smoking/Tobacco Use Status: Never Alcohol Alcohol Intake: current Alcohol intake frequency: 0-2 drinks per day Substance Use Substance use: Never Substance use type: does not use Vital Signs and Lab Results Vital Signs Most Recent Vital Signs in EMR: Most Recent Vital Signs Temp Pulse Resp BP Pulse Ox 36.3 C L 74 18 136/85 98 07/08/23 08:20 07/08/23 08:20 07/08/23 08:20 07/08/23 08:20 07/08/23 08:20 Point of Care Results Point of Care Results: Finger Stick Blood Glucose 100 07/08/23 08:33 Lab Results Blood Type / Crossmatch: No Data to Display Complete Blood Count: No Data to Display Complete Metabolic Panel: No Data to Display Liver Function Panel: No Data to Display Coagulation Panel: No Data to Display Cardiac Panel: No Data to Display Arterial Blood Gas: No Data to Display Venous Blood Gas: No Data to Display Pancreas Panel: No Data to Display Thyroid Panel: No Data to Display Infectious Disease: No Data to Display Blood Cultures: No Data to Display Toxicology Panel: No Data to Display Anesthesia Assessment and Plan Anesthesia History Personal History: No History of Anesthesia Complications Family History: No Family History of Anesthesia Complications Exercise Tolerance Exercise Tolerance: Metabolic Equivalents>4 Pertinent Negatives Pertinent Negatives: No Symptoms of GERD, No Major Cardiovascular Symptoms or Complaints, No Major Pulmonary Symptoms or Complaints and No History of CVA/TIA Cardiac & Pulmonary Exam Cardiac Exam: Normal S1/S2 Heart Sounds Pulmonary Exam: Clear Bilateral Breath Sounds Implantable Cardiac Device Does patient have a Pacemaker or an ICD?: No Airway Exam Known Difficult Airway: No Mallampati Class: 2 Mouth Opening: Normal (> 3cm) Thyromental Distance: Greater than 3 cm Neck Range of Motion: Full ROM Neck Circumference: Normal Teeth Condition: Normal Dentition ASA Classification ASA Score: ASA 3 Emergency Case?: No NPO Status NPO Status: NPO Clears >2 hours, Solids >8 hours Anesthesia Plan Resuscitation Status: Full Code Anesthesia Technique: General Anesthesia Airway Planned: Natural Airway Monitors Used: Standard Monitors
[2023-07-08 09:05] VITALS: BMI 37.8
[2023-07-08 09:30] VITALS: BP 126/81; PULSE 90; RESP 16; TEMP 36.7; O2SAT 94
[2023-07-08 09:56] VITALS: BP 119/79; PULSE 78; RESP 16; TEMP 36.1; O2SAT 97
--- NOTE | 2023-07-08 10:35 | W.ANESPOSTOP ---
Postoperative Evaluation Date, Time and Location Date Performed: 07/08/23 Time Performed: 09:56 Patient Location: Day Surgery Unit Vital Signs Most Recent Imported Vital Signs: Most Recent Vital Signs Temp Pulse Resp BP Pulse Ox 36.1 C L 78 16 119/79 97 07/08/23 09:56 07/08/23 09:56 07/08/23 09:56 07/08/23 09:56 07/08/23 09:56 Pain Score Most Recent Pain Score: Most Recent Pain Score Pain Level 0 07/08/23 09:56 Assessment Mental Status: Awake (Alert & Oriented to Patient Baseline) Airway and Respiratory Function: Patent airway with normal (patient baseline) respiratory exam Cardiovascular Function: Hemodynamically Stable Hydration Status: Adequately Hydrated Nausea & Vomiting: No Nausea or Vomiting Pain: Pt. Denies Any Pain Peripheral Nerve Block: Patient did not receive a nerve block
== END 2023-07-08 10:29 | disposition home or self-care (01) ==
LOC: SUR 07:58
PROVIDERS: PCP Nurse Practitioner Family; Visit Provider Surgery
PROC: 0DJD8ZZ Inspection of Lower Intestinal Tract, Via Natural or Artificial Opening Endoscopic (ICD-10-PCS; CPT 45378; principal; 2023-07-08 09:45)
DX: Z12.11 Encounter for screening for malignant neoplasm of colon (principal); K63.5 Polyp of colon; K60.5 Anorectal fistula; K62.1 Rectal polyp
CPT/HCPCS: 45380; 88305; J2704

== ENCOUNTER 2023-10-24 19:05 | Emergency (ER) | payer BC, SELFPAY ==
[2023-10-24 19:08] VITALS: BP 145/84; PULSE 71; RESP 18; TEMP 37; O2SAT 99
--- NOTE | 2023-10-24 19:30 | DI.RAD_ITS ---
Exam(s) XR FOOT RT LIMITED EXAM: XR FOOT RT LIMITED CLINICAL HISTORY: 4th toe infection, r/o osteomyelitis. TECHNIQUE: 2D digital imaging was performed of the right foot. Two images were obtained. AP, obliq ue and lateral views were obtained. COMPARISON: No exams were available for comparison FINDINGS: BONES: No acute fracture is present. No bony destructive lesion is seen. There is an enthesophyte at the posterior calcaneus. There is a small plantar calcaneal spur. JOINTS: No dislocation present. SOFT TISSUE: There is diffuse soft tissue swelling of the 4th toe. No radiopaque foreign body is ghanshyam ntified. IMPRESSION: Soft tissue swelling of the 4th toe. No radiopaque foreign body. No findings to suggest osteomyelit is at this time. Follow-up as clinically appropriate. DATA REPOSITORY: RADIATION DOSE DELIVERED:
--- NOTE | 2023-10-24 19:40 | ED.GENADUL_ITS ---
Discharge Plan Disposition Patient Disposition: Home Discharge Details Clinical Impression: Skin infection Primary Care Provider: GILMAR DUNCAN ED Provider: Sandra Vasquez Home Meds and New Rx's Prescriptions: New doxycycline hyclate 100 mg tablet 100 mg PO BID Qty: 12 0RF No Action Victoza 2-Denny 0.6 mg/0.1 mL (18 mg/3 mL) pen injector 1.8 mg subcut DAILY metformin 500 mg tablet extended release 24 hr 1,000 mg PO BID tadalafil 5 mg tablet 5 mg PO DAILY atorvastatin 40 mg tablet 40 mg PO DAILY losartan-hydrochlorothiazide 50-12.5 mg tablet 1 tab PO HS Patient Comments: TAKE 1 TABLET BY MOUTH ONCE A DAY FOR HIGH BLOOD PRESSURE aspirin [Aspir-81] 81 MG tablet,delayed release (DR/EC) 81 mg PO DAILY diltiazem HCl 120 mg capsule,extended release 24 hr 120 mg PO HS Patient Comments: TAKE ONE CAPSULE BY MOUTH AT BEDTIME Discharge Instructions Additional Instructions: Please call your traveling repair accountant first thing in the morning to schedule follow-up appointment next week for recheck of your foot. Wash your foot at least in the morning and at night with antibacterial soap and water. I recommend you soak for 15 to 20 minutes at a time, then dry your foot thoroughly. When you have wearing shoes or socks, please use gauze to separate your toes and to protect the wound. Take the doxycycline as prescribed. Please use SPF 50+ sunscreen reapplied multiple times daily when you are outside and be sure to avoid the sun is much as possible to avoid photosensitivity rash/rash due to the sun. Do not take your doxycycline within 1 hour of calcium containing foods or supplements. Return to emergency care if you develop worsening swelling of your toe extending up your foot, fever/chills, worsening pain, or if you are very worried and need to be rechecked again immediately Referrals: [facility] [Provider Group] HPI General Date/Time Provider Initiated Documentation: 10/24/23 19:23 . HPI Narrative: Omid is a 48-year-old male with history of T2DM, hypertension, hyperlipidemia, and peripheral neuropathy secondary to diabetes who presents to the emergency department today for evaluation of infection to his right fourth toe. He reports that he first noticed it 4 days ago, says it started as a pimple. He has attempted to pop it multiple times. For the last 2 days he has noticed a drainage on his sock. He has sensation intact distal to it. Denies systemic symptoms such as fever/chills, general malaise, pain elsewhere in the foot. He has no idea how this may have started, denies recent trauma. He does see a traveling repair accountant here in [place]. 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 Related Data Home Medications Medication Instructions Recorded Confirmed aspirin 81 mg tablet,delayed 81 mg PO DAILY 09/22/16 10/24/23 release (Aspir-) diltiazem HCl 120 mg capsule,24 120 mg PO HS 10/03/20 10/24/23 hr,extended release atorvastatin 40 mg tablet 40 mg PO DAILY 06/19/23 10/24/23 metformin 500 mg tablet,extended 1,000 mg PO BID 06/19/23 10/24/23 release 24hr (osmotic) tadalafil 5 mg tablet 5 mg PO DAILY 06/19/23 10/24/23 liraglutide 0.6 mg/0.1 mL (18 mg/3 1.8 mg subcut DAILY 06/26/23 10/24/23 mL) subcutaneous pen injector (Victoza 2-Denny) losartan 50 mg-hydrochlorothiazide 1 tab PO HS 07/04/23 10/24/23 12.5 mg tablet doxycycline hyclate 100 mg tablet 100 mg PO BID #12 tabs 10/24/23 Previous Rx's Medication Instructions Recorded doxycycline hyclate 100 mg tablet 100 mg PO BID #12 tabs 10/24/23 Allergies Allergy/AdvReac Type Severity Reaction Status Date / Time clindamycin Allergy Mild Skin Rash Verified 10/24/23 19:11 General Stated Complaint: Orthopedic MAKAYLA: 4 Review of Systems Narrative: see HPI Exam Const General: cooperative, healthy appearing, comfortable and no acute distress Extrem Right lower extremity: full ROM, normal capillary refill, no joint enlargement and foot Details: other (2 cm x 1 cm abscess to R 4th medial toe) Ankle/foot/toe images: 2 1. abscess Course Vital Signs Vital signs: Vital Signs Temperature 37.0 C 10/24/23 19:08 Pulse 71 10/24/23 19:08 Respiratory Rate 18 10/24/23 19:08 Blood Pressure 145/84 H 10/24/23 19:08 Pulse Oximetry 99 10/24/23 19:08 Temperature 37.0 C 10/24/23 19:08 Pulse 71 10/24/23 19:08 Respiratory Rate 18 10/24/23 19:08 Respiratory Effort Normal 10/24/23 19:10 Blood Pressure 145/84 H 10/24/23 19:08 Pulse Oximetry 99 10/24/23 19:08 Pain Level 7 10/24/23 19:08 Procedures Abscess I/D Site: Foot (R 4th toe) Local Anesthetic: Lidocaine 1% and Other Anesthetic (LET) Technique: Incised with #11 Blade Irrigation: No Packing used?: None Medical Decision Making Omid is a 48-year-old male with history of T2DM, hypertension, hyperlipidemia, and peripheral neuropathy secondary to diabetes who presents to the emergency department today for evaluation of infection to his right fourth toe. He reports that he first noticed it 4 days ago, says it started as a pimple. He has attempted to pop it multiple times. For the last 2 days he has noticed a drainage on his sock. He has sensation intact distal to it. Denies systemic symptoms such as fever/chills, general malaise, pain elsewhere in the foot. He has no idea how this may have started, denies recent trauma. He does see a traveling repair accountant here in [place]. 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 Physical exam remarkable for 2 cm round nodule that is erythematous and tender to palpation. There is a central area with purulent drainage and granulation tissue noted, scant active drainage. No surrounding erythema. No joint swelling/redness/warmth. Sensation to distal toe grossly intact. Patient is otherwise well-appearing. History and presentation most consistent with abscess. Concern for osteomyelitis based on history of diabetes and foot wound. X-ray obtained. Dr. Rubin also to bedside for evaluation. After local anesthesia with let, wound was cleansed extensively and abscess was attempted to be drained. No purulent drainage was able to be expressed by this data analyst report writer. Dr Rubin took over the procedure at this point, further extending the incision after ring block performed with 1% lidocaine. Upon exploration, wound did not appear consistent with fluid-filled abscess, more likely infected plantar wart or other lesion. Patient tolerated procedure well. Wound was dressed with nonstick bandage. Patient to be treated with doxycycline for MRSA coverage, as he has recorded allergy to clindamycin. Reviewed precautions re: doxycycline use and sun exposure. Educated on wound care and importance of follow-up with podiatry. He is agreeable with plan of care. Quality:SDOH Health Related Social Needs: 2 No Data to Display PFSH All Active Problems (Updated 10/24/23 @ 21:16 by Sandra Cota) Skin infection (Acute) Low serum vitamin B12 (Acute) Neuropathy (Acute) Encounter for screening colonoscopy (Acute) Hypertension (Chronic) Erectile dysfunction (Acute) Chronic pain (Chronic) Morbid obesity (Acute) Anxiety and depression (Chronic) High triglycerides (Acute) Testicular failure (Acute) FABIO (obstructive sleep apnea) (Chronic) Dyslipidemia (Acute) Type 2 diabetes mellitus (Acute) Metatarsalgia (Acute) Epiploic appendagitis (Acute) MCL sprain of left knee (Acute 10/03/20) Contusion of left knee (Acute 10/03/20) Knee swelling (Acute) Medical History History of atrial fibrillation Candidal balanitis Cellulitis of left foot (10/03/16) Surgical History History of colonoscopy biopsies Social History Smoking/Tobacco Use Status: Never Smoking risk assessment performed?: Yes Alcohol Intake: current Alcohol Intake frequency: a few times a week Drug use: Never Substance use type: does not use Housing: house Do you feel safe at home: Yes Do you feel safe in your relationship?: Yes PAWSS Have you Been Recently Intoxicated or Drunk Within the Last 30 days?: No Have you Ever Experienced Previous Episodes of Alcohol Withdrawal?: No Have you ever Experienced Withdrawal Seizures?: No Have you ever Experienced Delirium Tremens(DT)s?: No Have you ever undergone Alcohol Rehabilitation Treatment (i.e, inpt ot outpatient treatment programs)?: No Have you ever Experienced Blackouts?: No Have you ever Combined Alcohol with other Downers within the last 90 days?: No Have you ever Combined Alcohol with any other Substance of Abuse during the last 90 days?: No Positive Blood Alcohol level on Presentation? [PCS.BAL]: No Evidence of Increased Autonomic Activity (i.e. HR>120, tremor, sweating, agitation, nausea)?: No Result: 0
[2023-10-24] MEDS: Lidocaine/Epinephri/Tetracaine Topical Gel 3 ML TP (20:04)
--- NOTE | 2023-10-24 20:39 | DI.VRAD_ITS ---
PROCEDURE INFORMATION: Exam: XR Right Toe(s) Exam date and time: 10/24/2023 8:10 PM Age: 48 years old Clinical indication: Other: 4th toe infection, R/O osteomyelitis TECHNIQUE: Imaging protocol: Radiologic exam of the right toes. Views: Minimum 2 views. COMPARISON: No relevant prior studies available. FINDINGS: Bones/joints: Normal. Soft tissues: Soft tissue swelling involves the 4th and to a lesser extent 5th toe with swelling in the forefoot soft tissues. IMPRESSION: No acute bony abnormality noted. Dictated and Authenticated by: Anahi Finnegan MD. Ordering:PHI Flores MD
--- NOTE | 2023-10-25 00:22 | NUR.NOTE ---
Pt placed on care management referral list to be seen by Podiatry for foot wounds, to be seen within 1 week.
== END 2023-10-24 21:53 | disposition home or self-care (01) ==
PROVIDERS: Emergency Provider Nurse Practitioner Family; PCP Nurse Practitioner Family
DX: L08.9 Local infection of the skin and subcutaneous tissue, unspecified (principal); M79.674 Pain in right toe(s); E11.40 Type 2 diabetes mellitus with diabetic neuropathy, unspecified; I10 Essential (primary) hypertension; E78.5 Hyperlipidemia, unspecified; Z79.84 Long term (current) use of oral hypoglycemic drugs; Z79.85 Long-term (current) use of injectable non-insulin antidiabetic drugs; Z79.82 Long term (current) use of aspirin
CPT/HCPCS: 10060; 99283; 73620

== ENCOUNTER 2023-10-30 08:43 | Outpatient (CLI) | payer BC, SELFPAY ==
[2023-10-30 10:08] LABS: Vitamin B12 1152 pg/mL (193-986)
== END 2023-10-30 08:44 | disposition home or self-care (01) ==
LOC: LBO 08:44
PROVIDERS: PCP Nurse Practitioner Family; Visit Provider Podiatrist
DX: E53.8 Deficiency of other specified B group vitamins (principal)
CPT/HCPCS: 36415; 82607

== ENCOUNTER 2023-12-15 10:35 | Emergency (ER) | payer BC, SELFPAY ==
[2023-12-15 10:48] VITALS: BP 151/95; PULSE 66; RESP 12; TEMP 36.4; O2SAT 97
--- OUTSIDE RECORDS SUMMARY | 2023-12-15 11:02 | XMS_ITS | Encounter Summary ---
Author Organization [facility] Address [address] [place] [address] Care Team Providers Care Project Internship Name Role Phone Clayton Reid MD Primary Care Provider Encounter Details Date Type Department Care Team (Late st Contact Info) Description 07/08/2023 Lab Requisition [facility] Pathology & Laboratory Medicine - [facility] [address] [place] [address] Lincoln Allison MD [address] [place] [address], [address] [place], [place] [address] Encounter for screening for malignant neoplasm of colon Social History Tobacco Use Types Packs/Day Years Used Date Smoking Tobacco: Never Smokeless Tobacco: Never Alcohol Use Standard Drinks/Week Comments Yes 0 (1 standard drink = 0.6 oz pur e alcohol) occasional PHQ-2 Answer Date Recorded PHQ-2 Score 0 12/27/2019 Interpersonal Safety Answer Date Record ed Physically Hurt Never 12/27/2019 Verbally Threaten Not on file 12/27/2019 Sex and Gender Information Value Date Recorded Sex Assigned at Not on file Gender Identity Not on file Sexual Orientation Not on file documented as of this encounter Functional Status Functional Status Response Date of Assess ment Are you deaf or do you have serious difficulty h earing? No 10/02/2019 Are you blind or do you have serious difficulty seeing, even when wearing glasses? No 10/02/2019 Do you have serious difficul ty walking or climbing stairs? (5 years old or older) No 10/02/2019 Do you have difficulty dress ing or bathing? (5 years old or older) No 10/02/2019 Because of a physical, menta l, or emotional condition, do you have difficulty doing errands alone such as visiting a doctor's office or shopping? (15 years old or older) No 10/02/2019 Cognitive Status Response Date of Assessm ent Because of a physical, menta l, or emotional condition, do you have serious difficulty concentrating, remembering, or making decisions? (5 years old or older) No 10/02/2019 documented as of this encounter Plan of Treatment Not on file documented as of this encounter Procedures Procedure Name Priority Date/Time Associated Diagnosis Comments SURGICAL PATHOLOGY Today 07/08/2023 8:16 EST Encounter for screening for malignant neoplasm of colon documented in this encounter Results * SURGICAL PATHOLOGY (07/08/2023 8:16 EST) Note to Patient The following pathology results have been interpreted by your pathologist and may be available to you before your health provider has had the opportunity to review them. Please allow time for your provider to receive these results and explore management options, if applicable. 07/10/2023 12:20 [facility] Final Diagnosis A. RECTUM, POLYPS, BIOPSY: - Hyperplastic polyps. B. COLON, CECUM, POLYP, BIOPSY: - Sessile serrated adenoma. C. COLON, 95 CMS, POLYP, BIOPSY: - Tubular adenoma. 07/10/2023 12:20 [facility] Attestation By the signature below, the attending physician certifies that they have 1) personally conducted a gross and/or microscopic examination of the described specimen(s), and/or personally interpreted the results of laboratory testing of the described specimen(s), and 2) personally rendered or confirmed the above diagnosis. 07/10/2023 12:20 [facility] at 1220 Clinical History Screening colonoscopy 07/10/2023 12:20 [facility] Gross Description A. Received in formalin labelled with proper patient identification (initials H, A) and rectal polyps are 3 fragments of sheehan tissue (ranging from 0.2 cm to 0.4 cm in greatest dimension). The specimen is entirely submitted in A1. B. Received in formalin labelled with proper patient identification (initials H, A) and cecal polyp is a single fragment of sheehan tissue (0.4 x 0.3 x 0.2 cm). The specimen is entirely submitted in B1. C. Received in formalin labelled with proper patient identification (initials H, A) and polyp at 95 cm is a single fragment of sheehan-yellow tissue (0.6 x 0.2 x 0.2 cm). The specimen is entirely submitted in C1. BENEDICT BROWN(ASCP) 07/09/2023 7:53 07/10/2023 12:[address] [facility] Performing Lab [facility] 07/10/2023 12:[address] [facility] Scanned Images 07/10/2023 12:[address] [facility] Tissue COLON STRUCTURE / Unknown 07/08/2023 8:16 EST 07/08/2023 18:42 EST Tissue specimen (specimen) CECUM STRUCTURE / Unknown 07/08/2023 8:16 EST 07/08/2023 18:42 EST Tissue specimen (specimen) COLON STRUCTURE / Unknown 07/08/2023 8:16 EST 07/08/2023 18:42 EST Lincoln Allison MD PATHOLOGY ORDERABLES Performing Organization Address City/State/[facility] Co de Phone Number [facility] [address] [place] [phone] documented in this encounter Visit Diagnoses Diagnosis Encounter for screening for malignant neoplasm of colon Special screening for malignant neoplasms, colon documented in this encounter Care Teams Project Internship Relationship Specialty Start Date End Date Clayton Reid MD [address] [id number] PCP - General 10/02/19 documented as of this encounter
--- OUTSIDE RECORDS SUMMARY | 2023-12-15 11:02 | XMS_ITS | Encounter Summary ---
Author Organization [facility] Address [address] [place] [address] Care Team Providers Care Blocking Machine Operator Second Name Role Phone Clayton Reid MD Primary Care Provider [phone] Reason for Visit * Reason Comments Follow-up * Follow Up (Routine/Next Available) - Order Cancelled Specialty Diagnoses / Procedures Referred By Contac t Referred To Contact Cardiology Diagnoses Atrial fibrillation, unspecified type (HCC-CMS) Niurka Montilla NP [address] [phone] Pool Box MD [address] [phone] Referral ID Status Reason Start Date Expiration Date Visits Requested Visits Authorized [id number] Order Cancelled Specialty Services Required 10/05/2019 1 1 Encounter Details Date Type Department Care Team (Late st Contact Info) Description 10/21/2019 15:20 EDT Telemedicine [facility] Cardiology - [address] [address] Michelle Wells NP [address] [facility] [address] [place] [phone] Paroxysmal atrial fibrillation (HCC-CMS) (Primary Dx) Social History Tobacco Use Types Packs/Day Years Used Date Smoking Tobacco: Never Smokeless Tobacco: Never Alcohol Use Standard Drinks/Week Comments Yes 0 (1 standard drink = 0.6 oz pur e alcohol) occasional Sex and Gender Information Value Date Recorded [...] No 10/02/2019 documented as of this encounter Progress Notes * Michelle Wells, SENIOR ELECTRICAL CONTROLS ENGINEER - 10/21/2019 1520 EDT I am conducting today's visit by telemedicine due to the COVID-19 pandemic, and by the recommendations from the [facility] to minimize patient exposure to our clinical space. The concept of ???Telemedicine?? has been described to the patient.? This consultation has been reviewed by appropriate clinical staff and has been deemed appropriate for a phone consultation. Patient consents for the use of telemedicine in his/her medical care and authorizes the transmission of any relevant medical information to providers and their staff involved in patient???s medical or mental health care. The patient consents to a phone visit, is at home, and I am in my private office. TELEMEDICINE without VIDEO VISIT Today's visit was provided through telemedicine conferencing with phone call / audio ONLY. The location of the patient : Home The location of the provider: Home Office DATE OF VISIT: 10/21/2019 CHIEF COMPLAINT: Atrial fibrillation I had the pleasure of speaking to Omid Miller today for hospital follow up for atrial fibrillation. HPI from Dr. Gentile H&P: Omid Paul, is a 44 y/o male with PMH of HTN, HDL, obesity and untreated FABIO, he could not tolerate the CPAP and PAF. Afib was first diagnosed in 2007, at that time he underwent DCCV at [facility]. ECHO showed a normal EF and a mildly dilated LA. He did well until the??end of August where he began to complain of episodes of dizziness, SOB and palpitations. He followed up with Dr. Mcdaniel who noted Afib and started him on Metoprolol XL 100 mg and Xarelto??20 mg daily. His [id number] score is 1 for HTN. A follow up Event monitor showed multiple episodesof Afib lasting 10 minutes to hours with heart rates up to 180 bpm. Repeat ECHO on 09/30/19 showed a preserved EF of 55% and a mild to moderately dilated LA. He was admitted to load on Dofetilide. On admission Metoprolol was discontinued for ED and Diltiazem was started. ?? He was admitted and started on Dofetilide 500 mcg, he was in NSR on admission. The Dofetilide dose was decreased to 250 mcg and then to 125 mcg for QT prolongation. Unfortunately he did not tolerate the medication as his QTc was over 500 ms on the lowest dose. After a long discussion at the bedsidediscussing his treatment options he elected to undergo the ablation procedure. For his blood pressure trending in the 160/90 range he was started on Lisinopril 20 mg daily. At discharge his blood pressure is 138/79. ?? On 10/05/19 He underwent pulmonary vein encirclement and isolation. He tolerated the procedure well with no complications. He was in NSR at the end of the case. The following morning telemetry showed NSR. On exam lungs are clear, S1S2 RRR no MRG, right and left figure 8 stitches removed, both puncture sites are clean and dry, no bleeding or hematoma noted. He denies pain or difficulty swallowing, no fever or chills. ?? He will remain on Diltiazem CD 120 mg daily, Lisinopril 20 mg daily and Xarelto 20 mg daily. He hasbeen instructed to take Protonix once daily for 30 days for esophageal protection. Follow up has been arranged with Julia Wells NP at [facility] in 2 weeks for a post procedure check and with Dr. Box in 3 months. He will follow up routinely with Dr. Mcdaniel. He was given a lab slip and will have a BNP in one week with results to Dr. Reid. Today he reports he is feeling well. Bilateral groin sites are well healed, no numbness or tingling. On Saturday he felt some skipping, he usually feels AF in his throat. His mother checked his pulse and it felt irregular, His pulse was 119 bpm, 150/80's. it lasted 12 hours, it went away on its own. Yesterday he had only 1 minute. He is complaint taking his medications including xarelto, Diltiazem and lisinopril. Today was 140/75. He completed blood work on 10/11. PAST MEDICAL HISTORY 1. Atrial fibrillation post AF PVi RFA performed 10/05/19 2. HTN 3. HLD 4. FABIO CURRENT MEDICATIONS Current Outpatient Medications on File Prior to Visit Medication Sig Dispense Refill ??? DILTiazem (TIAZAC) 120 mg SR capsule Take 1 Cap by mouth at bedtime. 30 Cap 3 ??? lisinopriL (PRINIVIL) 20 mg tablet Take 1 Tab by mouth daily. 30 Tab 3 ??? pantoprazole (PROTONIX) 40 mg tablet Take 1 Tab by mouth daily for 30 days. 30 Tab 0 ??? rivaroxaban (XARELTO) 20 mg tablet tablet Take 20 mg by mouth daily. ??? Tadalafil 2.5 mg tablet Take 2.5 mg by mouth daily. ??? testosterone (ANDROGEL) 20.25 mg/1.25 gram (1.62 %) transdermal gel pump Apply 40.5 mg topically daily. No current facility-administered medications on file prior to visit. ALLERGIES No Known Allergies SOCIAL HISTORY reports that he has never smoked. He has never used smokeless tobacco. He reports that he drinks alcohol. REVIEW OF SYSTEMS Review of Systems Constitutional: Negative for chills, fever and malaise/fatigue. HENT: Negative for nosebleeds. Respiratory: Negative for cough and shortness of breath. Cardiovascular: Negative for chest pain, palpitations, orthopnea, claudication, leg swelling and PND. Gastrointestinal: Negative for blood in stool and melena. Genitourinary: Negative for hematuria. Neurological: Negative for dizziness and loss of consciousness. Psychiatric/Behavioral: The patient does not have insomnia. PHYSICAL EXAMINATION There were no vitals taken for this visit. Physical Exam-not performed DATA I reviewed the reports of the following tests: ?? Echocardiogram: The most recent laboratory evaluation included the following: Lab Results Component Value Date NA 136 10/06/2019 K 4.4 10/06/2019 CO2 24 10/06/2019 BUN 12 10/02/2019 Lab Results Component Value Date WBC 9.36 10/02/2019 RBC 5.19 10/02/2019 HGB 15.5 10/02/2019 HCT 43.3 10/02/2019 MCV 83 10/02/2019 MCH 29.9 10/02/2019 MCHC 35.8 10/02/2019 PLT 232 10/02/2019 MPV 8.8 (L) 10/02/2019 Lab Results Component Value Date TSH 2.56 10/02/2019 Lab Results Component Value Date ALKPHOS 53 10/02/2019 AST 27 10/02/2019 ALT 25 10/02/2019 No results found for: CHOL, HDL, TRIG, LDLC ASSESSMENT AND RECOMMENDATIONS In summary, Omid Hiral Miller is a 44 y.o. male PMH of HTN, HDL, obesity and untreated FABIO. He is here for follow up Atrial fibrillation post AF PVi RFA performed 10/05/19. We focused our evaluation and discussion today on the following problems: 1) Atrial fibrillation post AF PVi RFA performed 10/05/19. CHADS 2 vasc score zero-Xarelto for 3 months. Per his report his bilateral groin sites are well healed, no hematoma No difficulty swallowing Compliant with medications including Diltiazem xarelto, and protonix for 30d. 2) HTN-He is monitoring his blood pressure. Goal 130/80. PLAN: Contact the office AF > 12 hours Compliant with medications including Diltiazem xarelto, and protonix for 30d. Stay on Xarelto until Dr Box appointment I spent a total of 15 minutes on the phone with Omid Miller today and 12 minutes of that timewas spent in counseling and coordination of care as described in the progress note. Michelle Wells APRN 10/21/2019 8:09 documented in this encounter Plan of Treatment Not on file documented as of this encounter Visit Diagnoses Diagnosis Paroxysmal atrial fibrillation (HCC-CMS)- Primary Atrial fibrillation documented in this encounter Care Teams Blocking Machine Operator Second Relationship Specialty Start Date End Date Clayton Reid MD [address] [phone] PCP - General 10/02/19 documented as of this encounter
--- OUTSIDE RECORDS SUMMARY | 2023-12-15 11:02 | XMS_ITS | Encounter Summary ---
Author Organization [facility] Address [address] [place] [address] Care Team Providers Care Primary Operator Name Role Phone Clayton Reid MD Primary Care Provider [phone] Encounter Details Date Type Department Care Team (Late st Contact Info) Description 06/09/2020 Orders Only [facility] - [facility] [address], [place] [id number] Cora Delgado MD S/P vasectomy (Primary Dx) Social History Tobacco Use Types [...] as of this encounter Visit Diagnoses Diagnosis S/P vasectomy- Primary Vasectomy status documented in this encounter Care Teams Primary Operator Relationship Specialty Start Date End Date Clayton Reid MD [address] [phone] PCP - General 10/02/19 documented as of this encounter
--- OUTSIDE RECORDS SUMMARY | 2023-12-15 11:02 | XMS_ITS | Encounter Summary ---
Author Organization [facility] Address [address] [place] [address] Care Team Providers Care Instructor [employer] Name Role Phone Clayton Reid MD Primary Care Provider [phone] Reason for Visit * Reason Onset Date Comments Medications Refill 10/30/2019 Encounter Details Date Type Department Care Team (Late st Contact Info) Description 10/30/2019 Refill [facility] Cardiology - [facility] [address] [place] [address] Michelle Wells NP [address] [facility] [address] [place] [address] Medications Refill Social History Tobacco Use Types Packs/Day Years [...] No 10/02/2019 documented as of this encounter Ordered Prescriptions Prescription Sig Dispensed Refills Start Date End Da te lisinopriL (PRINIVIL) 20 mg tablet Take 1 Tab by mouth daily. 30 Tab 3 10/30/2019 documented in this encounter Miscellaneous Notes * Telephone Encounter - Rajwinder Kay - 10/30/2019 1035 EDT Medication(s) Requested lisinopriL (PRINIVIL) 20 mg tablet [id number] - [address]?[phone] Next Visit Date 01/05/2020 Out of Medication? Yes Rajwinder Kay 10/30/2019 10:35 documented in this encounter Plan of Treatment Not on file documented as of this encounter Visit Diagnoses Not on filedocumented in this encounter Discontinued Medications Medication Sig Discontinue Reason Start Date End Da te lisinopriL (PRINIVIL) 20 mg tablet Take 1 Tab by mouth daily. Reorder 10/07/2019 10/30/2019 documented as of this encounter Care Teams Instructor [employer] Relationship Specialty Start Date End Date Clayton Reid MD [address] [phone] PCP - General 10/02/19 documented as of this encounter
--- OUTSIDE RECORDS SUMMARY | 2023-12-15 11:02 | XMS_ITS | Encounter Summary ---
Author Organization [facility] Address [address] [place] [address] Care Team Providers Care Gunsmith Apprentice Name Role Phone Clayton Reid MD Primary Care Provider [phone] Encounter Details Date Type Department Care Team (Late st Contact Info) Description 01/31/2023 Lab Requisition [facility] Pathology & Laboratory Medicine - [facility] [address] [place] [address] Outr Resulting Lab, Provider Social History Tobacco Use Types Packs/Day Years [...] Procedure Name Priority Date/Time Associated Diagnosis Comments CHLAMYDIA/N. GONORRHOEAE AMPLIFIED NUCLEIC ACID Routine 01/30/2023 8:00 EDT documented in this encounter Results * CHLAMYDIA/N. GONORRHOEAE AMPLIFIED RNA (01/30/2023 8:00 EDT) Neisseria gonorrhoeae Result Negative Negative 02/01/2023 13:13 EDT [facility] Chlamydia trachomatis Result Negative Negative 02/01/2023 13:13 EDT [facility] Urine URINE / Unknown 01/30/2023 8 :00 EDT 01/31/2023 22:48 EDT Provider Outr Resulting Lab MICROBIOLOGY - GENERAL ORDERABLES [facility] [address] [place] [address] documented in this encounter Visit Diagnoses Not on filedocumented in this encounter Care Teams Gunsmith Apprentice Relationship Specialty Start Date End Date Clayton Reid MD [address] [phone] PCP - General 10/02/19 documented as of this encounter
--- OUTSIDE RECORDS SUMMARY | 2023-12-15 11:02 | XMS_ITS | Clinical Summary ---
Author Organization [facility] Address [facility] [place] [address] Care Team Providers Care Parking Lot Chauffeur Name Role Phone Trae Gabriel MD Primary Care Provider [phone] Social History Tobacco Use Types Packs/Day Years Used Date Smoking Tobacco: Never Assessed Sex and Gender Information Value Date Recorded Sex Assigned at Not on file Gender Identity Not on file Sexual Orientation Not on file Plan of Treatment Health Maintenance Due Date Last Done Comments CT Colonography 1976 Colonoscopy 1976 Colorectal Cancer Screening 1976 FIT DNA 1976 FIT 1976 Sigmoidoscopy (10 year) with FIT yearly 1976 Sigmoidoscopy 1976 HIV screen 1994 Hepatitis C Screening 1994 Lipid Screening 1994 Hepatitis B vaccine (0-59 yrs) (1) 1995 Tdap adult 1995 Tetanus vaccine 1995 Covid-19 Vaccine (1 - 2022- season) 2023 Influenza (Flu) vaccine (1 o f 1 - Influenza standard series) 01/26/2024 Care Teams Parking Lot Chauffeur Relationship Specialty Start Date End Date Trae Gabriel MD [address] [place] [id number] PCP - General 04/18/10
--- OUTSIDE RECORDS SUMMARY | 2023-12-15 11:02 | XMS_ITS | Encounter Summary ---
Author Organization [facility] Address [address] [place] [address] Care Team Providers Care Oil Painter Name Role Phone Clayton Reid MD Primary Care Provider [phone] Reason for Visit * Auth/Cert Specialty Diagnoses / Procedures Referred By Contac t Referred To Contact Diagnoses A-fib (HCC-CMS) Afib/Tikosyn Referral ID Status Reason Start Date Expiration Date Visits Re quested Visits Authorized [id number] 1 1 Encounter Details Date Type Department Care Team (Late st Contact Info) Description 10/02/2019 17:27 EDT - 10/06/2019 13:50 EDT Hospital Encounter [facility]iac [facility] [address], [place] [id number] Alex Mcdaniel MD Thompson, Nathaniel C, MD [address] [place] [phone] Emeka He MD [address] [place] [phone] Atrial fibrillation, unspecified type (HCC-CMS); AF (atrial fibrillation) (HCC-CMS); Paroxysmal atrial fibrillation (HCC-CMS); FABIO (obstructive sleep apnea) Discharge Disposition: Home or Self Care Social History Tobacco Use Types Packs/Day Years Used Date Smoking Tobacco: Never Smokeless Tobacco: Never Alcohol Use Standard Drinks/Week Comments Yes 0 (1 standard drink = 0.6 oz pur e alcohol) occasional Sex and Gender Information Value Date Recorded Sex Assigned at Not on file Gender Identity Not on file Sexual Orientation Not on file documented as of this encounter Last Filed Vital Signs Vital Sign Reading Time Taken Comments Blood Pressure 138/79 10/06/2019 0404 EDT Pulse - - Temperature 35.8 ??C (96.4 ??F) 10/06/2019 0749 EDT Respiratory Rate 16 10/06/2019 0749 EDT Oxygen Saturation 96% 10/06/2019 0749 EDT Inhaled Oxygen Concentration - - Weight 129.3 kg (285 lb) 10/02/2019 1841 EDT Height 185.4 cm (6' 1) 10/02/2019 1841 EDT Body Mass Index 37.6 10/02/2019 1841 EDT documented in this encounter Functional Status Functional Status Response [...] No 10/02/2019 documented as of this encounter Discharge Summaries * Lisa Montilla, INDUSTRIAL MAINTENANCE REPAIRER - 10/05/2019 1148 EDT Cardiology Discharge Summary Primary Care Provider: Clayton Reid Attending Physician: Tim Marks MD Admit Date: 10/02/2019 Discharge Date: 10/06/19 Disposition: Home or self care Problems and Procedures Admitting Diagnosis: No primary diagnosis found. Final Hospital Diagnosis: PAF Additional Problems Managed in the Hospital Active Hospital Problems Diagnosis Date Noted ??? *AF (atrial fibrillation) ([facility]) 10/02/2019 Added automatically from request for surgery [id number] ??? A-fib ([facility]) 10/02/2019 Resolved Hospital Problems No resolved problems to display. Principal Procedure: PVE/PVI Date: 10/05/19 Secondary Procedures: Not applicable Hospital Course HPI from Dr. Gentile H&P: Valery Miller, is a 44 y/o male with PMH of HTN, HDL, obesity and untreated FABIO, he could not tolerate the CPAP and PAF. Afib was first diagnosed in 2007, at that time he underwent DCCV at [facility]. ECHO showed a normal EF and a mildly dilated LA. He did well until the??end of August where he began to complain of episodes of dizziness, SOB and palpitations. He followed up with Dr. Mcdaniel who noted Afib and started him on Metoprolol XL 100 mg and Xarelto 20 mg daily. His [id number] score is 1 for HTN. A follow up Event monitor showed multiple episodes of Afib lasting 10 minutes to hours with heart rates up to 180 bpm. Repeat ECHO on 09/30/19 showed a preserved EF of 55% and a mild to moderately dilated LA. He was admitted to load on Dofetilide. On admission Metoprolol was discontinued for ED and Diltiazem was started. He was admitted and started on Dofetilide [...] At discharge his blood pressure is 138/79. On 10/05/19 He underwent pulmonary vein encirclement [...] or difficulty swallowing, no fever or chills. He will remain on Diltiazem CD 120 mg daily, Lisinopril 20 mg daily and Xarelto 20 mg daily. He hasbeen instructed to take Protonix once daily for 30 days for esophageal protection. Follow up has been arranged with Julia Wells NP at [facility] in 2 weeks for a post procedure check and with Dr. Martínez in 3 months. He will follow up routinely with Dr. Mcdaniel. He was given a lab slip and will have a BNP in one week with results to Dr. Reid. Allergies and Immunizations No Known Allergies There is no immunization history on file for this patient. Transition of Care Plans Condition at Discharge Good Assessment at Discharge Vital signs: Patient Vitals for the past 12 hrs: BP Heart Rate Resp Temp SpO2 O2 Device 10/06/19 0749 -- -- 16 35.8 ??C (96.4 ??F) 96 % -- 10/06/19 0404 138/79 94 BPM 18 36.7 ??C (98.1 ??F) 97 % None 10/05/19 2311 (!) 138/97 99 BPM 17 36.6 ??C (97.9 ??F) 95 % None Is the patient being discharged with a diagnosis of Systolic Heart Failure? No Coumadin Management N/A Non-Cardiac Studies at Time of Discharge none Results Pending at Discharge Test results still pending from this admission None Last Lab Results at Discharge BUN: Lab Results Component Value Date BUN 12 10/02/2019 Creatinine: Lab Results Component Value Date CREATININE 0.86 10/06/2019 CBC: Lab Results Component Value Date WBC 9.36 10/02/2019 RBC 5.19 10/02/2019 HGB 15.5 10/02/2019 HCT 43.3 10/02/2019 MCV 83 10/02/2019 MCH 29.9 10/02/2019 MCHC 35.8 10/02/2019 PLT 232 10/02/2019 Electrolytes: Lab Results Component Value Date NA 136 10/06/2019 K 4.4 10/06/2019 CL 103 10/06/2019 CO2 24 10/06/2019 Lab Results Component Value Date HGBA1C 5.6 10/02/2019 Discharge Follow Up Follow-up appointments and procedures Amb Consult/Follow Up Cardiology Reason for Request: post ablation follow up Scheduling Time Frame: 2 weeks Expected Discharge Date (Inpatient Only): 10/06/2019 Authorizing Provider: Lisa Montilla APRN Amb Consult/Follow Up Cardiology Reason for Request: post ablation follow up Scheduling Time Frame: 3 months Expected Discharge Date (Inpatient Only): 10/06/2019 Authorizing Provider: Lisa Montilla APRN Appointments We Recommend but have not been Scheduled n/a Lisa Montilla APRN 10/05/2019 11:48 Associated attestation - Tim Marks MD - 10/15/2019 1121 EDT I saw and examined the patient with the resident/fellow/nurse practioner. I agree with the findingsand plan of care documented in the resident's/fellow's note. documented in this encounter Discharge Instructions * Discharge Instr - Other Orders* Lisa Montilla APRN - 10/05/2019 11:41 EDT Discharge Instructions for A-fib Ablation Patients 1. Wound Care: ?? You may remove the Band-Aids/Dressings from the sites the next morning ?? You may shower the following day. ?? No tub bathing for seven days. This includes hot tubs and pools. ?? A small lump the size of a dime may occur at the site, this is normal and should absorb on its own. 2. Call your physician or nurse if: ?? You develop drainage, redness, or swelling at any of the sites ?? You develop a fever ?? You develop increased tenderness and/or increased bruising over sites which doesn't resolve in 2days ?? Please go to the closest hospital if either of the groin puncture sites bleeds (a hematoma) or if it is painful to stand ?? You develop a persistent and/or productive cough ?? Your symptoms reoccur ?? Pain or difficulty swallowing associated with flu like symptoms, fever or chills within the first 4 weeks following the procedure. 3. Activity: ?? You can resume your normal activities in two weeks unless you have been instructed otherwise ?? If you are traveling by car or airplane in the next week, you will need to stand and move aroundevery 2 hours to promote circulation ?? No vigorous activity for 2 weeks. Avoid running, squatting and heavy lifting (>10 lbs) duringthis time period. ?? You may resume driving after 48 hours unless instructed otherwise ?? You may return to work after 5 days if your work demands are not physical. If your job entails strenuous activity, a two week waiting period is recommended. 4. Medications: ?? Resume prior medications unless otherwise instructed ?? Discontinue Metoprolol, you have been started on Diltiazem CD 120 mg daily ?? You have been started on Lisinopril 20 mg daily for your blood pressure/ you will need your blood drawn in one week/ we have given you a lab slip to bring with you. The results will go to Dr. Reid ?? Please take Protonix once daily for 30 days to keep the acid levels down in your stomach. ?? We will send your prescription requests to the Hospital Pharmacy, they will bring the medications to you before you leave today 5. Appointments: follow up with the Nurse Practitioner at [facility] in 2 weeks for a post procedure check (this will likely be a video visit). Follow up with Dr. Martínez in 3 months at [facility] in [facility]. You will be notified with the appointments. If you have any questions or concerns, please don't hesitate to call the [facility] Ar[facility]hythmia Serviceat [facility] at [phone] (or dial [phone]) documented in this encounter Medications at Time of Discharge Medication Sig Dispensed Refills Start Date End Date DILTiazem (TIAZAC) 120 mg SR capsule Take 1 Cap by mouth at bedtime. 30 Cap 3 10/06/2019 Tadalafil 2.5 mg tablet Take 2.5 mg by mouth daily. testosterone (ANDROGEL) 20.25 mg/1.25 gram (1.62 %) transdermal gel pump Apply 40.5 mg topically daily. lisinopriL (PRINIVIL) 20 mg tablet Take 1 Tab by mouth daily. 30 Tab 3 10/07/2019 10/30/2019 pantoprazole (PROTONIX) 40 mg tablet Take 1 Tab by mouth daily for 30 days. 30 Tab 10/06/2019 11/05/2019 rivaroxaban (XARELTO) 20 mg tablet tabletIndications:preventi on of thromboembolism in paroxysmal atrial fib Take 20 mg by mouth daily. 01/05/2020 documented as of this encounter Ordered Prescriptions Prescription Sig Dispensed Refills Start Date End Da te DILTiazem (TIAZAC) 120 mg SR capsule Take 1 Cap by mouth at bedtime. 30 Cap 3 10/06/2019 pantoprazole (PROTONIX) 40 mg tablet Take 1 Tab by mouth daily for 30 days. 30 Tab 10/06/2019 11/05/2019 lisinopriL (PRINIVIL) 20 mg tablet Take 1 Tab by mouth daily. 30 Tab 3 10/07/2019 10/30/2019 documented in this encounter Discharge Disposition Disposition Code Departure Means Destination Home or Self Custodial documented in this encounter Progress Notes * Krysten Ding RN - 10/06/2019 1350 EDT CM Discharge Note Discharge Date: 10/05 Destination: home Transportation: family Home Health: NA DME: Magdalene Prescriptions: escribed to [facility] for [id number] Krysten Ding RN ACM #[id number] * Lisa Montilla APRN - 10/05/2019 1156 EDT Cardiology Progress note Service Date: 10/05/2019 Admit Date: 10/02/2019 17:27 Reason for Admission: 44 y.o. male admitted with a chief complaint of fatigue and palpitations and now with a principal diagnosis of PAF with RVR. Events/ Procedures in the last 24 Hours: failed Dofetilide for long QT, remains in NSR Subjective/Objective Subjective Mr. Miller denies chest pain, dyspnea, fatigue, irregular heart beat, lower extremity edema, orthopnea, palpitations, paroxysmal nocturnal dyspnea, tachypnea/rapid breathing Review of Systems Pertinent items are noted in Subjective/HPI Objective Vital Signs Patient Vitals for the past 8 hrs: BP Heart Rate Temp SpO2 O2 Device 10/05/19 0723 (!) 143/79 66 BPM 36 ??C (96.8 ??F) 96 % None Weight: No data found. No intake or output data in the 24 hours ending 10/05/19 1158 Physical Exam General appearance: alert, cooperative, no distress Lungs: clear to auscultation bilaterally Heart: regular rate and rhythm, S1, S2 normal, no murmur, click, rub or gallop Abdomen: soft, non-tender; bowel sounds normal; no masses, no organomegaly Mental Status: awake and alert; oriented to person, place, and time Extremities: extremities warm, atraumatic, no cyanosis or edema positive pulses bilat Pulses: 2+ and symmetric Is PICC or central line present? No, PICC/Central line not present. Medications Reviewed: Changes notable for Lisiniopril added yesterday Labs Reviewed: No significant findings. CBC: Recent Labs 10/02/191821 WBC 9.36 HGB 15.5 HCT 43.3 MCV 83 PLT 232 BMP: Recent Labs 10/02/19 1822 10/03/19 0517 10/04/19 0608 10/05/19 0532 CREATININE 0.79 0.76 0.79 0.87 BUN 12 -- -- -- NA 139 138 138 137 K 4.0 4.2 4.1 4.3 CL 103 103 101 103 CO2 28 27 30 27 MG 2.2 2.2 2.3 2.4 Coags: No results for input(s): PROTIME, INR, PTT in the last 72 hours. LFTs: Recent Labs 10/02/192 ALT 25 AST 27 ALKPHOS 53 Cardiac Biomarkers: No results for input(s): TROPONINI in the last 72 hours. Lipids: No results for input(s): CHOL, TRIG, HDL, LDLBASE, CHOLHDL in the last 72 hours. Non-Invasive Findings last 24 hours: N/A Telemetry: yes, Normal sinus rhythm ECG: QTc last night > 500 ms Does the patient have active heart failure? no Assessment/Plan Assessment/Plan Mr. Miller is a 44 y/o male with PMH of HTN, untreated FABIO and PAF with RVR. He is followed by and sent in over the weekend for Dofetilide load. Metoprolol was switched to Diltiazem for ED. Recent ECHO showed EF 55%. He is symptomatic with Afib with RVR with palpitations and fatigue. He presented in NSR and remains in NSR today. The Dofetilide was discontinued this AM for prolonged QT.After a discussion in the room he has elected to undergo the ablation procedure which we have arranged for today. On 10/01/19 he underwent out patient screening for Covid 19 where he denies any recent travel, exposure or symptoms. HTN: blood pressure over the weekend was in the 160/90-100 range. He was started on Lisinopril 20 mg yesterday with blood pressures today in the 140 range. Will continue current dose for now and arrange for out patient BNP in one week. He will have BP check at his 2 week follow up PLAN D/C Dofetilide PVE/PVI today Continue Dilt CD 120 daily Continue Xarelto 20 mg daily Continue newly added Lisinopril 20 mg daily Out patient BNP in one week with results to Dr. Reid Add Protonix 40 mg once daily for 30 days post procedure DISPO: Home tomorrow 2 week follow up with [facility]ICKEN [facility]ANER at [facility] 3 month follow up with Dr. Martínez Routine follow up with Dr. Mcdaniel VTE Prophylaxis Pharmacologic Prophylaxis: xarelto 20 mg daily Discharge Plan Home or self care Lisa Montilla APRN 10/05/2019 11:58 Associated attestation - Tim Marks MD - 10/15/2019 1121 EDT I saw and examined the patient with the resident/fellow/nurse practioner. I agree with the findingsand plan of care documented in the resident's/fellow's note. * Jenn Stoddard - 10/04/2019 1512 EDT Initial Case Management/Social Work Assessment and Discharge Plan/Readmission Risk Assessment REASON FOR ADMISSION: Start Dofetilide for Atrial Dysrhythmia Patient understands reason for admission: Yes PATIENT CONTACT INFO VERIFIED: Yes PATIENT ADDRESS VERIFIED: Yes Type of housing (single family, condo, apartment, fdc, single room occupancy, [facility] funded hotel room, group long term) - Double Wide Trailer Who does the patient live with? Spouse and children Does the patient have access to their own bedroom/bathroom/kitchen - or is it shared with others? Home spaces are shared with family. Name of housing complex (ex [facility], [facility], etc)- Not applicable Housing Authority/Managing Organization - Not applicable. Community Care Providers (sample case porter, [facility] nurse, etc) name and contact information- Not Applicable LIVING ARRANGEMENTS AND ACCESSIBILITY ISSUES: Living Arrangements: Spouse / significant other, Children, Private residence(patient lives with family in a double wide trailer.) Levels: 1 Stairs to enter: 3 Handicap access: None Bathroom located on bedroom level?: Yes What in home social supports are available to the patient? Spouse / significant other, Family member(s) Is / care available? Yes ADVANCED DIRECTIVES, POA &/or COLST IN PLACE: Healthcare Directive: No, patient does not have advance directive for healthcare treatment Information Provided on Healthcare Directives: No Information on Healthcare Directives Requested: No Patient Requests Assistance: No DIRECTIVES FOR FINANCES: Directive For Finances: No TRANSPORTATION: Transportation: Self, Family CULTURAL, ADVENT and/or LANGUAGE factors affecting health care/discharge planning: Spiritual/Cultural Requests: None Any factors affecting health care/discharge planning?: No Insurance in Place: Yes Medical Insurance: Yes Type of insurance: Commercial insurance Commercial coverage: [employer] BCBS Referred to patient financial services: No Nutrition: Cardiac diet DISCHARGE RISK ASSESSMENT: None of the above risks identified Total # selected above: Score: Zero Tentative plan to address the risk of re-hospitalization for those at HIGH MODERATE RISK: RAPT TOOL: Age: (44 years old) Gender: Male Ambulation distance: 2 or more blocks (600ft) Gait device: None Community Services: Home health, [facility], [facility]-none of one time a week Will you live with someone who will care for you?: Yes RAPT Tool Score: 10 Patient expects to be discharged to: Home SBIRT: SASQ (Single Alcohol Screening Question) How many times in the past year have you had 5 or more drinks in a single day?: Never How many times in the past year have you used an illegal drug or used a prescription medication fornon-medical reasons?: Never Intervention in place/initiated?: No, not indicated FUNCTIONAL STATUS: Activities patient requires assistance: None, Age appropriate Assistive Device: None COMMUNITY RESOURCES/SUPPORTS: Primary Care Provider: Clayton Reid PCP Verified: Yes Specialists: Cardiology Type of Home Health Services: None DME Provider: Pharmacy: No Pharmacies Listed Home Health: Other: POST HOSPITAL TRANSITION PLAN: Met with the patient at bedside to discuss role of case management and to discuss any discharge needs. Patient has a supportive family and does not anticipate any needsupon discharge. Case management will Continue to provide care coordination. JENN STODDARD RN CM 10/04/2019 15:12 * Clayton Cheney MD - 10/04/2019 0754 EDT Cardiology Progress Note Admit Date: 10/02/2019 Date of Service: 10/04/2019 Chief Complaint: AF Events/ Procedures in the last 24 hrs: JESÚS Sinus rhythm QT lengthening- will decrease dose Subjective: Denies current symptomatology Review of Systems: Pertinent items are noted in Subjective/HPI Objective: VS: Blood pressure (!) 161/103, temperature (!) 35.1 ??C (95.2 ??F), temperature source Tympanic, resp. rate 15, height 185.4 cm (73), weight (!) 129.3 kg (285 lb), SpO2 99 %. Weight: No data found. Gen: A&O x3; NAD HEENT: MMM, Sclera non icteric, NCAT Chest: CTA bilaterally. Normal effort Heart: RRR w/o m/r/g Abd: Soft, NT, ND Ext: No edema. No gross deformity Neuro: Moving all four, grossly non-focal Psych: Normal mood and affect. I&O: No intake or output data in the 24 hours ending 10/04/19 0755 Lab Review: Recent Labs 10/02/19 1822 10/03/19 0517 10/04/19 0608 CREATININE 0.79 0.76 0.79 BUN 12 -- -- NA 139 138 138 K 4.0 4.2 4.1 CL 103 103 101 CO2 28 27 30 MG 2.2 2.2 2.3 Recent Labs 10/02/19 1822 WBC 9.36 HGB 15.5 HCT 43.3 MCV 83 PLT 232 No results found for: HGBA1C No results for input(s): CK, MB, CKMBINDEX, TROPONINI in the last 72 hours. No results found for: CKMB, CKMBINDEX, TROPONINI No results for input(s): BNP in the last 72 hours. Assessment: 44 y.o.male with a history of pAF, HTN, FABIO presents for dofetilide load Plan: AF: dofetilide laod - continue MIXING TANK OPERATOR Xarelto 20mg - Dilt 120mg HS; change from metoprolol - dofetilide 125 mcg, decreased due to QT - last dose Saturday morning - daily lytes and creatinine. Patient seen and discussed with Dr. Shravan Mcbride MD Screen Maker [id number] 10/04/2019 7:55 Attestation Statement: I have seen and evaluated the patient on 10/04/19. I agree with assessment and plan as documented. Clayton Cheney MD documented in this encounter H&P Notes * Jono Gentile MD - 10/02/2019 1158 EDT Cardiology Admitting H&P Admit Date: 10/02/2019 Date of Service: 10/02/2019 PCP: Clayton Reid Code Status: Full Code Chief Complaint: Palpitations, dizziness, SOB HPI: Valery Miller, is a 44 y/o male with PMH of HTN, HDL, obesity and untreated FABIO, he could not tolerate the CPAP and PAF. Afib was first diagnosed in 2007, at that time he underwent DCCV at [facility]. ECHO showed a normal EF and a mildly dilated LA. He did well until the end of August where he began to complain of episodes of dizziness, SOB and palpitations. He followed up with Dr. Mcdaniel who noted Afib and started him on Metoprolol XL 100 mg and Xarelto 20 mg daily. His [id number] score is 1 for HTN. A follow up Event monitor showed multiple episodes of Afib lasting 10 minutes to hourswith heart rates up to 180 bpm. Repeat ECHO on 09/30/19 showed a preserved EF of 55% and a mild to moderately dilated LA. The plan is to bring him in for Dofetilide loading. Because he is complaining of erectile dysfunction, Dr. Mcdaniel would like the Metoprolol changed to Diltiazem on admission. He arrives here with out any symptoms. Denies any CP, palpitations, dyspnea, orthopnea, PND or leg edema. The patient had been instructed to check his co pay for the Dofetilide, he reports the medication is $5 for a 30 day supply. Prior Cardiac History: noted in [facility] PMH PSH Past Medical History: Diagnosis Date ??? A-fib (CMS-HCC) Past Surgical History: Procedure Laterality Date ??? VASECTOMY ??? WRIST SURGERY Social History Family History Social History Tobacco Use ??? Smoking status: Never Smoker ??? Smokeless tobacco: Never Used Substance Use Topics ??? Alcohol use: Yes Comment: occasional Family History Problem Relation Age of Onset ??? Prostate Cancer Neg Hx Medications Medications Prior to Admission Medication Sig Dispense Refill Last Dose ??? [DISCONTINUED] aspirin chewable 81 mg tablet Take 81 mg by mouth daily. Taking ??? [DISCONTINUED] metoprolol succinate 200 mg capsule,sprinkle,ER 24hr Take 200 mg by mouth daily.10/01/2019 ??? rivaroxaban (XARELTO) 20 mg tablet tablet Take 20 mg by mouth daily. 10/01/2019 ??? Tadalafil 2.5 mg tablet Take 2.5 mg by mouth daily. 10/01/2019 ??? testosterone (ANDROGEL) 20.25 mg/1.25 gram (1.62 %) transdermal gel pump Apply 40.5 mg topically daily. 10/01/2019 Allergies No Known Allergies Review of Systems: 12 point review of system was otherwise unremarkable. O: Temp: [35 ??C (95 ??F)-35.5 ??C (95.9 ??F)] (), Pulse: -- (), Resp: [16-18] (), BP: (155-165)/(86-108) (), SpO2: [97 %-99 %] () Physical Exam Constitutional: NAD HEENT: atnc, perrl, eomi Neck: supple, no cervical lad; or jvd Cardiovascular: rrr, S1, S2, no m/r/g Pulmonary/Chest: ctab, No respiratory distress. Abdomen: bs+/s/nd/nttp Extremities: maew, no edema, 2+ DP/PT b/l Neurological: face symmetric, voice articulate, non focal. Skin: Warm and dry without rash. Labs: WBC/Hgb/Hct/Plts: 9.36/15.5/43.3/232 (10/01 1821) Na/K/Cl/CO2: 139/4.0/103/28 (10/01 1821) BUN/Cr/glu/ALT/AST/amyl/lip: 12/0.79/106/25/27/--/-- (10/01 1821) EKG today show normal sinus rhythm with normal QT. Assessment: PAF: 44 y/o male with PMH of HTN, HDL, obesity and untreated FABIO, he could not tolerate the CPAP and PAF. Afib was first diagnosed in 2007, at that time he underwent DCCV. Afib returned and he was started on Metoprolol and Xarelto. Recent event monitor shows high heart rates in Afib up to 180 bpm. He is quite symptomatic with the episodes. Per Dr. Mcdaniel the plan is to load Dofetilide and change Metoprolol to Diltiazem. Echo on 09/30/19 showed a preserved EF of 55% and a mild to moderately dilatedLA. The Dofetilide co pay is $5 for a 30 day supply Dofetilide Initiation For Atrial Dysrhythmia : - Start dofetilide 500 mcg BID - Change Metoprolol to Diltiazem - Initial ECG shows appropriate QTc (QTc <440 or 500 if patient has ventricular conduction abnormality) - Please obtain EKG 2 hours after each dose (for total of first 6 doses of dofetilide) - Each dose to be approved by EP fellow or kettle cleaner field artillery operations man - Dose adjustments will be made following each EKG: - if QTc increased >15% compared to baseline or if QTc>500 (or 550 in ventricular conduction abnormalities) after 1st dose, will need to halve dose (or dc if at 125 mcg/BID) - if any time after 2nd dose of dofetilide is given, QTc >500 msec then dofetilide should be DC'd - Ensure no concurrent Verapamil, HCTZ, cimetidine, trimethoprim, ketoconazole, prochlorperazine, megesterol, Class I or Class III antiarrythmics - avoid QT prolonging medications if possible (eg. Quinolones, antiemetics) - daily Creatinine, Magnesium, Potassium to assess renal function and ensure adequate electrolyte levels (K>4, Mg>2) Initiation Dose: CrCl -- Dose >60 mL/min 500 mcg BID 40-60 mL/min 250 mcg BID 20-40 mL/min 125 mcg BID <20 mL/min Contraindicated # Hypogonadism- continue testosterone gel. # HTN change metoprolol to diltiazem VTE Prophylaxis: on Xarelto Discharge Plan: on Saturday Case discussed with Dr. Katelin Gentile MD 10/02/2019 19:51 Associated attestation - Emeka He MD - 10/05/2019 0828 EDT I have seen and examined the patient 10/03/2019 and agree with the above history and physical exam and assessment and plan. Emeka He MD documented in this encounter Procedure Notes * Wilmar Martínez MD - 10/05/2019 0305 EDT Af ablation Normal EP study [id number] Ah 70, hv 40 Raa1:1 to 340 rv 1:1 to 560 phis- all node ra 18/5~ 9 La 21/8 ~ 12 PVE-PVI All veins isolated, bidirectional block Groin sutures x 2- remove tomorrow. P: recover Rosario 4 No Tikosyn, prolonged QT Could use OP flecainide or Multaq 100 bid if needed for paf post procedure F/u Myself 3 months documented in this encounter Miscellaneous Notes * Plan of Care - Ya Ding RN - 10/06/2019 1954 EDT D: Patient discharged home per MD; bilateral groin sites CD &I; pt. received meds from [facility] pharmacy; A: IV removed, catheter tip intact. Telemetry removed. RN reviewed discharge instructions and medications with patient; Patient received medication sheets and discharge instructions. R: Patient expressed good understanding of discharge instructions. He has no questions at this time. Patient dressed independently. He left via wheelchair for ride to [facility] lobby; in no acute distress; to drive pt. Home; left at 13:55. * Plan of Care - Michelle Rodriguez RN - 10/06/2019 0248 EDT Problem: Daily Care Plan Goals Goal: Care Plan Documentation Outcome: Ongoing Flowsheets (Taken 10/06/2019 0245) Area of Focus: Circulatory Status Note: Data: Patient admitted with ADRIAN and failed dofetilide. Now s/p a-fib ablation. Zhou. Groin sites clean and dry. Left radial pressure drsg clean and dry. Good CSMT's, neuro vss. Vss, afebrile. Ortho vss. Taking po well. Now voiding. Telemetry shows nsr. C/o headache x1 but declined pain meds. Action: vs checked as per orders. Bilateral groin and left radial sites checked freq. Response: continue to monitor. MICHELLE RODRIGUEZ RN 10/06/2019 2:45 Problem: High Fall Risk: Goal: Patient will Remain Free of Falls due to Med. Side Effects Outcome: Ongoing Problem: High Fall Risk: Goal: Patient Will Remain Free from Fall-Related Injury Outcome: Ongoing * Plan of Care - Deandra Eduardo RN - 10/05/2019 1813 EDT Pt returned to room via cart from PACU, physical assessment completed, vital signs obtained, pt is sleepy but awakens easily to voice/is oriented x 3. Denies SOB. Call light in reach, HOB locked out at 30 degrees, bed alarm activated, ice water given, will continue to monitor. * Plan of Care - Sultana Alvarado RN - 10/05/2019 0652 EDT 35.7 ??C (96.3 ??F) 86 BPM Normal sinus rhythm RR 17 (!) 144/92 96 % on None Data: Pt here for Dofetilide initiation. Pt remains in NSR. Action: Dose #6 due this am. Uneventful shift Response: Will continue to monitor and report changes. SULTANA ALVARADO RN 10/05/2019 6:52 * Plan of Care - Bernarda Martinez RN - 10/04/2019 0102 EDT Data: Pt admitted for dofetilide load. NSR in the 60s, can by sinus deacon with sleep. Pt HTN to [id number], other VSS on RA. Pt denies pain / SOB / feelings of afib. Action: Tele & VS monitored. Meds per mar, including 3rd dose of dofetilide. Post dofetilide EKG completed. Provided pt with education regarding medications and ablation procedure. Response: Pt resting comfortably. NSR. Plan is for continued load and ablation if needed. BERNARDA MARTINEZ RN 10/04/2019 1:02 Problem: High Fall Risk: Goal: Patient will Remain Free of Falls due to Med. Side Effects Outcome: Met This Shift Problem: Daily Care Plan Goals Goal: Care Plan Documentation Outcome: Ongoing * Plan of Care - Mimi Ayala RN - 10/03/2019 1611 EDT Data: assumed care of patient at 1500, no changed prior to am shift, given Tikosyn and EKG was performed. MD's aware of QT elongation noted. Action: educated patient on schedule for remained of shift, VSS Response: patient states he understands his plan of care MIMI AYALA RN 10/03/2019 16:11 * Plan of Care - Brandie Cotton RN - 10/03/2019 1030 EDT Data: Pt is A&Ox3. Pt states clear understanding of why he is in hospital. Action: Assessment complete. Response: LCTA, no edema, PIV patent, jodie PO, +u/o, no pain. BRANDIE COTTON RN 10/03/2019 10:30 * Plan of Care - Keith Bullard RN - 10/02/2019 9435 EDT Problem: Daily Care Plan Goals Goal: Care Plan Documentation Outcome: Ongoing Area of Focus: Circulatory Status Goal This Shift: Maintain Stable VS Data: Assumed care of patient at 19:00. Patient is in SR with a HR in the 50's- 60's - BP = 155/86 and SpO2 = 97% on room air. Patient is A+Ox3 and has no complaints of chest pain, SOB, or discomfort. Action: Reviewed plan of care with patient. Administered patient's first dose of PO Dofetilide (500mcg) as per MD nursing communication - post-administration ECG ordered for two hours after. Reminded patient to use the call brown for assistance. Admission database completed. Assessment, vitals, Elissa+O's as documented in flow sheet. Response: Patient currently resting comfortably in bed with the call brown within reach. Will continue to monitor. documented in this encounter Plan of Treatment Scheduled Orders Name Type Priority Associated Diagnoses Order Schedule TRANSESOPHAGEAL ECHO (JAIDA) Echocardiography Routine One Time for 1 Occurrences starting 10/05/2019 until 10/05/2019 documented as of this encounter Procedures Procedure Name Priority Date/Time Associated Diagnosis Comments ECG REPORT - SCANNED 10/28/2019 9:31 EDT ECG REPORT - SCANNED 10/16/2019 13:59 EDT ECG REPORT - SCANNED 10/15/2019 14:39 EDT ECG REPORT - SCANNED 10/15/2019 14:36 EDT ECG REPORT - SCANNED 10/15/2019 12:30 EDT ECG REPORT - SCANNED 10/09/2019 7:16 EDT ECG REPORT - SCANNED 10/09/2019 7:16 EDT ECG REPORT - SCANNED 10/07/2019 16:16 EDT ECG REPORT - SCANNED 10/06/2019 13:48 EDT MAGNESIUM Routine 10/06/2019 5:30 EDT CREATININE Routine 10/06/2019 5:30 EDT ELECTROLYTES Routine 10/06/2019 5:30 EDT EKG 12-LEAD Routine 10/05/2019 18:43 EDT CARDIAC ABLATION Routine 10/05/2019 16:1 0 EDT AF (atrial fibrillation) ([facility]) POCT ACTIVATED CLOTTING TIME, KAOLIN ISTAT Routine 10/05/2019 15:15 EDT POCT ACTIVATED CLOTTING TIME, KAOLIN ISTAT Routine 10/05/2019 14:35 EDT POCT ACTIVATED CLOTTING TIME, KAOLIN ISTAT Routine 10/05/2019 13:[address] CARDIAC ANGIO PULMONARY VEIN STAT 10/05/2019 10:47 EDT TYPE AND SCREEN STAT 10/05/2019 9:55 EDT MAGNESIUM Routine 10/05/2019 5:32 EDT CREATININE Routine 10/05/2019 5:32 EDT ELECTROLYTES Routine 10/05/2019 5:32 EDT POST DOFETILIDE EKG Routine 10/04/2019 2 2:50 EDT POST DOFETILIDE EKG Routine 10/04/2019 1 0:49 EDT MAGNESIUM Routine 10/04/2019 6:08 EDT CREATININE Routine 10/04/2019 6:08 EDT ELECTROLYTES Routine 10/04/2019 6:08 EDT POST DOFETILIDE EKG Routine 10/03/2019 2 3:06 EDT POST DOFETILIDE EKG Routine 10/03/2019 1 1:19 EDT MAGNESIUM Routine 10/03/2019 5:17 EDT CREATININE Routine 10/03/2019 5:17 EDT ELECTROLYTES Routine 10/03/2019 5:17 EDT POST DOFETILIDE EKG Routine 10/02/2019 2 2:35 EDT COMPLETE BLOOD COUNT Routine 10/02/2019 18:22 EDT BUN Routine 10/02/2019 18:22 EDT ALT Routine 10/02/2019 18:22 EDT AST Routine 10/02/2019 18:22 EDT TSH Routine 10/02/2019 18:22 EDT ALKALINE PHOSPHATASE Routine 10/02/2019 18:22 EDT MAGNESIUM Routine 10/02/2019 18:22 EDT HEMOGLOBIN A1C Routine 10/02/2019 18:22 EDT GLUCOSE, SERUM Routine 10/02/2019 18:22 EDT CREATININE STAT 10/02/2019 18:22 EDT ELECTROLYTES STAT 10/02/2019 18:22 EDT EKG 12-LEAD Routine 10/02/2019 18:17 EDT documented in this encounter Results * ECG REPORT - SCANNED (10/28/2019 9:31 EDT) 10/28/2019 9:31 EDT Scan 2 Geospatial Image Analyst PROCEDURE/MINOR BRAD GICAL ORDERABLES * ECG REPORT - SCANNED (10/16/2019 13:59 EDT) 10/16/2019 13:5 9 EDT Scan 2 Geospatial Image Analyst PROCEDURE/MINOR BRAD GICAL ORDERABLES * ECG REPORT - SCANNED (10/15/2019 14:39 EDT) 10/15/2019 14:3 9 EDT Scan 2 Geospatial Image Analyst PROCEDURE/MINOR BRAD GICAL ORDERABLES * ECG REPORT - SCANNED (10/15/2019 14:36 EDT) 10/15/2019 14:3 6 EDT Scan 2 Geospatial Image Analyst PROCEDURE/MINOR BRAD GICAL ORDERABLES * ECG REPORT - SCANNED (10/15/2019 12:30 EDT) 10/15/2019 12:3 0 EDT Scan 2 Geospatial Image Analyst PROCEDURE/MINOR BRAD GICAL ORDERABLES * ECG REPORT - SCANNED (10/09/2019 7:16 EDT) 10/09/2019 7:16 EDT Scan 2 Geospatial Image Analyst PROCEDURE/MINOR BRAD GICAL ORDERABLES * ECG REPORT - SCANNED (10/09/2019 7:16 EDT) 10/09/2019 7:16 EDT Scan 2 Geospatial Image Analyst PROCEDURE/MINOR BRAD GICAL ORDERABLES * ECG REPORT - SCANNED (10/07/2019 16:16 EDT) 10/07/2019 16:1 6 EDT Scan 2 Geospatial Image Analyst PROCEDURE/MINOR BRAD GICAL ORDERABLES * ECG REPORT - SCANNED (10/06/2019 13:48 EDT) 10/06/2019 13:4 8 EDT Scan 2 Geospatial Image Analyst PROCEDURE/MINOR BRAD GICAL ORDERABLES * MAGNESIUM (10/06/2019 5:30 EDT) Magnesium 2.0 1.7 - 2.8 mg/dL 10/06/2019 6:29 EDT [facility] Blood VENOUS BLOOD / Unknown Venipuncture / Unknown 10/06/2019 5:30 EDT 10/06/2019 6:01 EDT Lisa Montilla NP CHEMISTRY & B LOOD GAS ORDERABLES Performing Organization Address City/[facility]/ZIP Co de Phone Number [facility] [address] [place] [address] * ELECTROLYTES (10/06/2019 5:30 EDT) Sodium 136 136 - 145 mEq/L 10/06/2019 6:29 EDT [facility] Potassium 4.4 3.5 - 5.0 mEq/L 10/06/2019 6:29 EDT [facility] Chloride 103 96 - 110 mEq/L 10/06/2019 6:29 EDT [facility] CO2 Total 24 22 - 32 mEq/L 10/06/2019 6:29 EDT [facility] Blood VENOUS BLOOD / Unknown Venipuncture / Unknown 10/06/2019 5:30 EDT 10/06/2019 6:01 EDT Lisa Montilla NP CHEMISTRY & B LOOD GAS ORDERABLES Performing Organization Address City/[facility]/ZIP Co de Phone Number [facility] [address] [place] [address] * CREATININE (10/06/2019 5:30 EDT) Creatinine 0.86 0.66 - 1.25 mg/dL 10/06/2019 6:29 EDT [facility] eGFR 106 >60 mL/min/1.7 3m2 10/06/2019 6:29 EDT [facility] Comment:eGFR calculated jalyn funes CKD-EPI equation for non- Americans. Multiply eGFR by 1.16 for patients. Blood VENOUS BLOOD / Unknown Venipuncture / Unknown 10/06/2019 5:30 EDT 10/06/2019 6:01 EDT Lisa Montilla NP CHEMISTRY & B LOOD GAS ORDERABLES [facility] [address] [place] [address] * EKG 12-LEAD (10/05/2019 18:43 EDT) 10/05/2019 18:4 3 EDT Narrative [facility] EKG - 10/06/2019 13:40 EDT ? [facility] ? Test Date: ?2019-10-05 Pat Name: ? VALERY MILLER ?Department: ?? [facility] 4 ? Room: ? PC1281 Gender: ? Male ? Candy Puller: ?? [id number] : ?1975 ? Requested By: WILMAR MARTÍNEZ MD Order Number: [id number] ? Reading MD: ?? HOPE LOUIS MD ? Measurements Intervals ?[place] ? Rate: ? 59 ? P: ?39 RI: ? 160 ?QRS: ?49 QRSD: ? 111 ?T: ?33 QT: ? 429 ? QTc: ?428 ? Interpretive Statements SINUS BRADYCARDIA INCOMPLETE RIGHT BUNDLE BRANCH BLOCK NONSPECIFIC T-WAVE ABNORMALITY Compared to ECG 10/04/2019 22:50:27 T-wave abnormality now present Sinus rhythm no longer present Sinus arrhythmia no longer present Myocardial infarct finding no longer present I reviewed the tracing and have either agreed or edited the findings in this report. Electronically Signed On 10-06-2019 13:40:59 EDT by HOPE LOUIS MD. Procedure Note Hope Louis MD - 10/06/2019 [facility] Test Date: 2019-10-05 Pat Name: VALERY MILLER Department: [place] [address] Room: [facility] Gender: Male Candy Puller: [id number] : 1975 Requested By: WILMAR MARTÍNEZ MD Order Number: [id number] Reading MD: HOPE LOUIS MD Measurements Intervals [place] Rate: 59 P: 39 RI: 160 QRS: 49 QRSD: 111 T: 33 QT: 429 QTc: 428 Interpretive Statements SINUS BRADYCARDIA INCOMPLETE RIGHT BUNDLE BRANCH BLOCK NONSPECIFIC T-WAVE ABNORMALITY Compared to ECG 10/04/2019 22:50:27 T-wave abnormality now present Sinus rhythm no longer present Sinus arrhythmia no longer present Myocardial infarct finding no longer present I reviewed the tracing and have either agreed or edited the findings inthis report. Electronically Signed On 10-06-2019 13:40:59 EDT by HOPE KIDD. Wilmar Martínez MD CARDIAC ECG [facility] EKG * ABLATION A-FIB (10/05/2019 16:10 EDT) Anatomical Region Laterality Modality Cardiac Electrop hysiology 10/05/2019 11:0 0 EDT Narrative 10/05/2019 16:09 EDT *Cardiology* [address] [place] [address] Electrophysiology Study with Ablation Patient: Valery Miller ? Study Date: ? 10/05/2019 ? Accession #: ?[id number] : ? 1975 Referring: Alex Mcdaniel Attending: Wilmar Martínez MD Fellow: Assisting: Walker Roblero RN Copies: ATTESTATION: Lyly Dr. Wilmar Martínez performed the entire procedure and was the initial and only author of the report.. SUMMARY OF PROCEDURE: - Baseline rhythm sinus rhythm. - Successful pulmonary vein isolation. - At the conclusion of the procedure the patient was in sinus rhythm. - There were no complications. HISTORY AND INDICATIONS: ??44 y/o M with hx highly symptomatic PAF. Prolonged QT on tikosyn. Hx FABIO but not able to tolerate cpap/bipap. Now referred for af ablation. Normal LVEF. No thrombus by CTA. Non-valvular atrial fibrillation. Transesophageal echocardiography was performed. Pre-procedure JAIDA was negative for left atrial thrombus. ANESTHESIA: General anesthesia. PROCEDURE: The risks, benefits, and alternatives to the procedure were explained and informed consent was obtained. The patient name, date of , surgical site, and procedure were verified prior to the procedure. The patient was brought to electrophysiology laboratory in the fasting state. The groin was prepped and draped in the usual sterile manner. The right femoral vein and left femoral vein were entered under fluoroscopic guidance with the modified Seldinger technique. Sheath and catheter detail(s) in table below.All catheters were placed under fluoroscopic guidance. The attending physician was physically present for the entire Electrophysiology Study and/or Ablation procedure. VASCULAR ACCESS AND CATHETER PROPERTIES: + +------+ + + Entry site ? Sheath Locations ? Catheter ? + +------+ + + L femoral vein 7Fr ?? RA appendage ?? 6 Fr hexapolar electrode catheter ? (2 mm spacing; proximal ring 25 ? cm from tip) ? + +------+ + + L femoral vein 7Fr ?? Coronary sinus 7 Fr deflectable electrode ? catheter 10 electrodes (2 ? mm-5mm-2mm spacing) ? + +------+ + + R femoral vein 8.5Fr Lasso ? 7 Fr deflectable circumferential ? catheter (20, 1mm electrodes) ? + +------+ + + L femoral vein 8.5Fr Right atrium ?? 8 Fr AcuNav intracardiac ? ultrasound catheter ? + +------+ + + R femoral vein 8.5Fr Ablation ? 3.5 mm tip Thermocool Navistar ? SF: 8 Fr deflectable quadrapolar ? ablation electrode (2 mm-5mm-2mm) + +------+ + + EP STUDY: A comprehensive electrophysiology study was performed. Testing was done at baseline. Measurements of refractory periods were obtained. Protocols included decremental pacing. Pacing and recording were carried out from the left atrial, right atrial, right ventricular, coronary sinus, and His bundle sites . AV CAROLINE/HIS-PURKINJE CONDUCTION INTERVALS: + + + State ? Baseline ?? + + + Rhythm ? Sinus ? + + + Cycle length ? 1100msec ?? + + + A-H ? 70ms ? + + + H-V ? 50ms ? + + + A-V 1:1 ? 340ms ? + + + AV Wenckebach ? 330ms ? + + + V-A 1:1 ? 560ms ? + + + V-A conduction ? Concentric + + + Dual AV caroline pathways No ? + + + Pre-excitation ? No ? + + + Pacing from the coronary sinus did not reveal pre-excitation. Para-Hisian pacing showed retrograde conduction to be entirely over the AV node. Description of arrhythmia: ABLATION AND MAPPING PROCEDURE: Transseptal catheterization was performed. A SL1 8.5 F sheath and dilator were placed in the SVC over a 0.32 wire. A Transeptal needle large BRK -1 needle was positioned 2mm proximal to the tip of the dilator and flushed. An Intracardiac echo catheter was placed in the right atrium and used to scan the relative positions of the LV outflow tract, the ascending aorta, the fossa ovalis and the posterior right atrium. The needle and dilator were dragged from the SVC into the fossa ovalis. The position of the needle was confirmed by scanning posterior and anterior to the point of the dilator. Once the position was confirmed using fluoroscopic, intracardiac ultrasound, and pressure guidance the needle was advanced into the LA while continuously monitoring its position via ultrasound. Permanent images were obtained and saved in the patient's medical record. A wire was advanced through the long sheath and positioned in the left atrium. The needle and dilator were removed and the sheath was flushed. Heparin bolus and infusion were begun prior to transseptal puncture to keep the ACT => 350 seconds. A second sheath was placed in the left atrium using the same technique as the first sheath. ATRIAL PRESSURES: + +-------+ Right atrial systolic 18mm Hg + +-------+ Right atrial diastolic 5mm Hg + +-------+ Right atrial mean ? 9mm Hg + +-------+ Left atrial systolic ?? 21mm Hg + +-------+ Left atrial diastolic 8mm Hg + +-------+ Left atrial mean ? 11mm Hg + +-------+ Mapping: A Carto shell was made. The pulmonary veins and left atrial sites were mapped, using a Lasso Paulino catheter and a Thermocool catheter. Mapping was performed during RA pacing, LA pacing, and coronary sinus pacing. ABLATION PROCEDURE: - PULMONARY VEIN ISOLATION AND ENCIRCLING: The left superior pulmonary ??vein, left inferior pulmonary vein, right inferior pulmonary vein and ??right superior pulmonary vein were encircled and isolated with lasso ??guidance. Radiofrequency ablation was applied to the identified sites. ??The power was limited to 30W (25W when ablating the posterior left ??atrium or near the ostia of the veins). Esophageal temperature was ??monitored throughout. - Bidirectional block over all ablation lines was confirmed with ??differential pacing. Hemostasis. At the conclusions of the procedure all sheaths and catheters were removed from the left atrium. Heparin was discontinued and reversed with Protamine Sulfate. All sheaths and catheters were removed from the body. Manual compression was applied to the puncture sites. Groin sites were intact with no hematoma. STUDY COMPLETION - Fluoroscopy time: 6min. - Patient in-room time: 12:00 PM. - Patient out-of-room time: 04:00 PM. - Intake: 275ml - Output: 300ml - Estimated blood loss: 30ml. PLAN: ??See post procedure orders. Bed rest for 3hours. Continue anticoagulation. Ketorolac for pericardial pain. At the completion of the procedure, findings, results, any complications, and treatment plan were communicated to the patient and reinforced after recovery from anesthesia. With the patient's consent, the attending physician communicated findings, results, any complications, and treatment plan to family members and patient support persons who were present at the conclusion of the procedure. Electronically signed by Wilmar Martínez MD 10/05/2019 16:09 Mary Patel MD CARDIAC EP ORDERABLE S * (ABNORMAL) POCT ACTIVATED CLOTTING TIME, KAOLIN ISTAT (10/05/2019 15:15 EDT) iSTAT Activated Clotting Time 252(H) 74 - 137 sec 10/05/2019 15:22 EDT [facility] media arts professor [place] [id number] 10/05/2019 15:22 EDT [facility] HN LAB POC COMMENT (ACT) Test performed by Cardiology. Therapeutic interventaional range is dependent upon patient population and procedure type 10/05/2019 15:22 EDT [facility] Blood ARTERIAL BLOOD / Unknown 10/05/2019 15:15 EDT 10/05/2019 15:22 EDT Tim Marks MD POINT OF CARE [facility] ORDERABLES [facility] [address] [place] [address] * (ABNORMAL) POCT ACTIVATED CLOTTING TIME, KAOLIN ISTAT (10/05/2019 14:35 EDT) iSTAT Activated Clotting Time 252(H) 74 - 137 sec 10/05/2019 14:44 EDT [facility] media arts professor ID [id number] 10/05/2019 14:44 T [facility] HN LAB POC COMMENT (ACT) Test performed by Cardiology. Therapeutic interventaional range is dependent upon patient population and procedure type 10/05/2019 14:44 EDT [facility] Blood ARTERIAL BLOOD / Unknown 10/05/2019 14:35 EDT 10/05/2019 14:44 EDT Tim Marks MD POINT OF CARE TE ST ORDERABLES Performing Organization Address [facility] Co de Phone Number [facility] [address] [place] [address] * (ABNORMAL) POCT ACTIVATED CLOTTING TIME, KAOLIN ISTAT (10/05/2019 13:53 EDT) iSTAT Activated Clotting Time 274(H) 74 - 137 sec 10/05/2019 14:01 EDT [facility] media arts professor ID [id number] 10/05/2019 14:01 EDT [facility] HN LAB POC COMMENT (ACT) Test performed by Cardiology. Therapeutic interventaional range is dependent upon patient population and procedure type 10/05/2019 14:01 EDT [facility] Blood ARTERIAL BLOOD / Unknown 10/05/2019 13:53 EDT 10/05/2019 14:01 EDT Tim Marks MD POINT OF CARE TE ST ORDERABLES Performing Organization Address [facility] Co de Phone Number [facility] [address] [place] [address] * CT CARDIAC ANGIO PULMONARY VEIN (10/05/2019 10:47 EDT) Anatomical Region Laterality Modality Chest Computed Tomogra phy 10/05/2019 10:5 2 EDT Narrative 10/05/2019 10:[address] CARDIAC ANGIO PULMONARY VEIN ??10/05/2019 10:10 AM Clinical History/Comments: Complex Patient Condition - See Comments; AF ablation planned Technique: CT of the chest performed with either retrospective technique acquired at either 64 or 40 x 0.625 mm ??with a cardiac rate driven variable pitch between 0.2 and 0.6, or prospective technique acquired at either 128 or 256 x 0.625 mm , with bolus tracking over the left atrium. ??Images of the cardiac area were convoluted at 0.9mm thickness at 0.6mm intervals with a limited field of view, at 30-35-40-45% phases of the cardiac cycle. ??Vessel analysis and 3D renderings were performed on the dedicated console. The radiologist reviewed and adjusted the images for the 3D rendering on an independent workstation, as necessary, prior to interpretation. Exam description: CT of the heart with contrast for cardiac structure/morphology or function. Comparison: None. Findings: CT of the chest with contrast performed tailored for left atrium and pulmonary vein opacification. The left atrium is normal in size. ??The maximum anterior to posterior diameter measurement is 4.3 cm. The pulmonary veins are normal. ??No aberrant pulmonary veins are seen. The left atrial appendage is well opacified and no definite thrombus is seen. Additional findings: * ??Both right and left coronary arteries arise from above the sinuses of Valsalva at the sinotubular junction, normal variant. Procedure Note Roger Colby MD - 10/05/2019 CT CARDIAC ANGIO PULMONARY VEIN 10/05/2019 10:10 AM Clinical History/Comments: Complex Patient Condition - See Comments; AF ablation planned Technique: CT of the chest performed with either retrospective technique acquired ateither 64 or 40 x 0.625 mm with a cardiac rate driven variable pitchbetween 0.2 and 0.6, or prospective technique acquired at either 128 or256 x 0.625 mm , with bolus tracking over the left atrium. Images of thecardiac area were convoluted at 0.9mm thickness at 0.6mm intervals with alimited field of view, at 30-35-40-45% phases of the cardiac cycle.Vessel analysis and 3D renderings were performed on the dedicated console.The radiologist reviewed and adjusted the images for the 3D rendering maru independent workstation, as necessary, prior to interpretation. Exam description: CT of the heart with contrast for cardiacstructure/morphology or function. Comparison: None. Findings: CT of the chest with contrast performed tailored for left atrium andpulmonary vein opacification. The left atrium is normal in size. The maximum anterior to posteriordiameter measurement is 4.3 cm. The pulmonary veins are normal. No aberrant pulmonary veins are seen. The left atrial appendage is well opacified and no definite thrombus isseen. Additional findings: * Both right and left coronary arteries arise from above the sinuses ofValsalva at the sinotubular junction, normal variant. Mary Patel MD IMG CT ORDERABLES * TYPE AND SCREEN (10/05/2019 9:55 EDT) ABO A 10/05/2019 10:54 EDT [facility] Rh Factor Positive 10/05/2019 10:54 EDT [facility] Antibody Screen Negative 10/05/2019 10:54 EDT [facility] Specimen Expires: 10/08/2019 @ 23:59 10/05/2019 10:54 EDT [facility] Blood VENOUS BLOOD / Unknown Venipuncture / Unknown 10/05/2019 9:55 EDT 10/05/2019 10:05 EDT Tim Marks MD BLOOD BANK TESTS [facility] [address] [place] [address] * MAGNESIUM (10/05/2019 5:32 EDT) Magnesium 2.4 1.7 - 2.8 mg/dL 10/05/2019 6:25 EDT [facility] Blood VENOUS BLOOD / Unknown Venipuncture / Unknown 10/05/2019 5:32 EDT 10/05/2019 5:56 EDT Lisa Montilla NP CHEMISTRY & B LOOD GAS ORDERABLES [facility] [address] [place] [address] * ELECTROLYTES (10/05/2019 5:32 EDT) Sodium 137 136 - 145 mEq/L 10/05/2019 6:25 EDT [facility] Potassium 4.3 3.5 - 5.0 mEq/L 10/05/2019 6:25 EDT [facility] Chloride 103 96 - 110 mEq/L 10/05/2019 6:25 EDT [facility] CO2 Total 27 22 - 32 mEq/L 10/05/2019 6:25 EDT [facility] Blood VENOUS BLOOD / Unknown Venipuncture / Unknown 10/05/2019 5:32 EDT 10/05/2019 5:56 EDT Lisa Montilla CHICKEN CLEANER CHEMISTRY & B LOOD GAS ORDERABLES Performing Organization Address [facility] de Phone Number [facility] [address] [place] [address] * CREATININE (10/05/2019 5:32 EDT) Creatinine 0.87 0.66 - 1.25 mg/dL 10/05/2019 6:25 EDT [facility] eGFR 106 >60 mL/min/1.7 3m2 10/05/2019 6:25 EDT [facility] Comment:eGFR calculated jalyn funes CKD-EPI equation for non- Americans. Multiply eGFR by 1.16 for patients. Blood VENOUS BLOOD / Unknown Venipuncture / Unknown 10/05/2019 5:32 EDT 10/05/2019 5:56 EDT Lisa Montilla CHICKEN CLE[employer]ER CHEMISTRY & B LOOD GAS ORDERABLES Performing Organization Address [facility] de Phone Number [facility] [address] [place] [address] * POST DOFETILIDE EKG (10/04/2019 22:50 EDT) 10/04/2019 22:5 0 EDT Narrative [facility] EKG - 10/07/2019 16:09 EDT ? [facility] ? Test Date: ?2019-10-04 Pat Name: ? VALERY JESSICA ?Department: ?? [facility] [address] ? Room: ? [id number] Gender: ? Male ? Candy Puller: ?? [id number] : ?1975 ? Requested By: ALEX MCDANIEL MD Order Number: [id number] ? Reading MD: ?? EMEKA HE MD ? Measurements Intervals ?[place] ? Rate: ? 73 ? P: ?61 RI: ? 148 ?QRS: ?29 QRSD: ? 108 ?T: ?29 QT: ? 468 ? QTc: ?519 ? Interpretive Statements SINUS RHYTHM WITH SINUS ARRHYTHMIA INCOMPLETE RIGHT BUNDLE BRANCH BLOCK POSSIBLE INFERIOR MYOCARDIAL INFARCTION, PROBABLY OLD I reviewed the tracing and have either agreed or edited the findings in this report. Electronically Signed On 10-07-2019 16:09:22 EDT by EMEKA HE MD. Procedure Note Emeka He MD - 10/07/2019 [facility] Test Date: 2019-10-04 Pat Name: VALERY MILLER Department: [place] [address] Room: [facility] Gender: Male Candy Puller: [id number] : 1975 Requested By: ALEX MCDANIEL MD Order Number: [id number] Reading MD: EMEKA HE MD Measurements Intervals [place] Rate: 73 P: 61 RI: 148 QRS: 29 QRSD: 108 T: 29 QT: 468 QTc: 519 Interpretive Statements SINUS RHYTHM WITH SINUS ARRHYTHMIA INCOMPLETE RIGHT BUNDLE BRANCH BLOCK POSSIBLE INFERIOR MYOCARDIAL INFARCTION, PROBABLY OLD I reviewed the tracing and have either agreed or edited the findings inthis report. Electronically Signed On 10-07-2019 16:09:22 EDT by EMEKA UMAÑA. Alex Mcdaniel MD CARDIAC ECG ORDERA [facility] E[facility] * POST DOFETILIDE EKG (10/04/2019 10:49 EDT) 10/04/2019 10:4 9 EDT Narrative [facility] E[facility] - 10/15/2019 14:33 EDT ? [facility] ? Test Date: ?2019-10-04 Pat Name: ? VALERY MILLER ?Department: ?? [place] Sue ? Room: ? [id number] Gender: ? Male ? Candy Puller: ?? [id number] : ?1975 ? Requested By: ALEX MCDANIEL MD Order Number: [id number] ? Reading MD: ?? JOURDAN VAIL MD ? Measurements Intervals ?[place] ? Rate: ? 75 ? P: ?68 RI: ? 174 ?QRS: ?30 QRSD: ? 109 ?T: ?36 QT: ? 415 ? QTc: ?464 ? Interpretive Statements SINUS RHYTHM Incomplete right bundle branch block NONSPECIFIC T-WAVE ABNORMALITY ??Edited by JOURDAN RODARTE MD on 10-12-2019 13:32:48 EDT. I reviewed the tracing and have either agreed or edited the findings in this report. Electronically Signed On 10-15-2019 14:33:37 EDT by JOURDAN VAIL MD. Procedure Note Jourdan aVil MD - 10/15/2019 [facility] Test Date: 2019-10-04 Pat Name: VALERY MILLER Department: [place] [address] Room: [facility] Gender: Male Candy Puller: [id number] : 1975 Requested By: LAEX MCDANIEL MD Order Number: [id number] Reading MD: JOURDAN VAIL MD Measurements Intervals [place] Rate: 75 P: 68 RI: 174 QRS: 30 QRSD: 109 T: 36 QT: 415 QTc: 464 Interpretive Statements SINUS RHYTHM Incomplete right bundle branch block NONSPECIFIC T-WAVE ABNORMALITY Edited by JOURDAN RODARTE MD on 10-12-2019 13:32:48 EDT. I reviewed the tracing and have either agreed or edited the findings inthis report. Electronically Signed On 10-15-2019 14:33:37 EDT by JOURDAN ANAYA. Alex Mcdaniel MD CARDIAC ECG ORDERA BLES Performing Organization Address City/[facility]/ZIP Co de Phone Number [facility] * MAGNESIUM (10/04/2019 6:08 EDT) Magnesium 2.3 1.7 - 2.8 mg/dL 10/04/2019 6:57 EDT [facility] Blood VENOUS BLOOD / Unknown Venipuncture / Unknown 10/04/2019 6:08 EDT 10/04/2019 6:26 EDT Lisa Montilla NP CHEMISTRY & B LOOD GAS ORDERABLES Performing Organization Address City/[facility]/ZIP Co de Phone Number [facility] [address] [place] [address] * ELECTROLYTES (10/04/2019 6:08 EDT) Sodium 138 136 - 145 mEq/L 10/04/2019 6:57 EDT [facility] Potassium 4.1 3.5 - 5.0 mEq/L 10/04/2019 6:57 EDT [facility] Chloride 101 96 - 110 mEq/L 10/04/2019 6:57 EDT [facility] CO2 Total 30 22 - 32 mEq/L 10/04/2019 6:57 EDT [facility] Blood VENOUS BLOOD / Unknown Venipuncture / Unknown 10/04/2019 6:08 EDT 10/04/2019 6:26 EDT Lisa Montilla NP CHEMISTRY & B LOOD GAS ORDERABLES Performing Organization Address [facility] Co de Phone Number [facility] [address] [place] [address] * CREATININE (10/04/2019 6:08 EDT) Creatinine 0.79 0.66 - 1.25 mg/dL 10/04/2019 6:57 EDT [facility] eGFR 110 >60 mL/min/1.7 3m2 10/04/2019 6:57 EDT [facility] Comment:eGFR calculated jalyn funes CKD-EPI equation for non- Americans. Multiply eGFR by 1.16 for patients. Blood VENOUS BLOOD / Unknown Venipuncture / Unknown 10/04/2019 6:08 EDT 10/04/2019 6:26 EDT Lisa Montilla NP CHEMISTRY & B LOOD GAS ORDERABLES Performing Organization Address City/[facility] Co de Phone Number [facility] [address] [place] [address] * POST DOFETILIDE EKG (10/03/2019 23:06 EDT) 10/03/2019 23:0 6 EDT Narrative [facility] EKG - 10/15/2019 14:33 EDT ? [facility] ? Test Date: ?2019-10-03 Pat Name: ? VALERY JESSICA ?Department: ?? [address] ? Room: ? [id number] Gender: ? Male ? Candy Puller: ?? [id number] : ?1975 ? Requested By: ALEX MCDANIEL MD Order Number: [id number] ? Reading MD: ?? JOURDAN VAIL MD ? Measurements Intervals ?[place] ? Rate: ? 56 ? P: ?56 RI: ? 182 ?QRS: ?38 QRSD: ? 110 ?T: ?21 QT: ? 494 ? QTc: ?479 ? Interpretive Statements SINUS BRADYCARDIA POSSIBLE LEFT ATRIAL ENLARGEMENT INCOMPLETE RIGHT BUNDLE BRANCH BLOCK NONSPECIFIC T-WAVE ABNORMALITY PROLONGED QT INTERVAL ??Edited by FRANCESCO CAMEJO MD on 10-05-2019 18:51:14 EDT. I reviewed the tracing and have either agreed or edited the findings in this report. Electronically Signed On 10-15-2019 14:33:08 EDT by JOURDAN VAIL MD. Procedure Note Jourdan Vail MD - 10/15/2019 [facility] Test Date: 2019-10-03 Pat Name: VALERY MILLER Department: [place] [address] Room: [facility] Gender: Male Candy Puller: [id number] : 1975 Requested By: ALEX MCDANIEL MD Order Number: [id number] Reading MD: JOURDAN VAIL MD Measurements Intervals [place] Rate: 56 P: 56 RI: 182 QRS: 38 QRSD: 110 T: 21 QT: 494 QTc: 479 Interpretive Statements SINUS BRADYCARDIA POSSIBLE LEFT ATRIAL ENLARGEMENT INCOMPLETE RIGHT BUNDLE BRANCH BLOCK NONSPECIFIC T-WAVE ABNORMALITY PROLONGED QT INTERVAL Edited by FRANCESCO CAMEJO MD on 10-05-2019 18:51:14 EDT. I reviewed the tracing and have either agreed or edited the findings inthis report. Electronically Signed On 10-15-2019 14:33:08 EDT by JOURDAN ANAYA. Alex Mcdaniel MD CARDIAC ECG ORDERA BLES [facility] EKG * POST DOFETILIDE EKG (10/03/2019 11:19 EDT) 10/03/2019 11:1 9 EDT Narrative [facility] EKG - 10/28/2019 9:27 EDT ? [facility] ? Test Date: ?2019-10-03 Pat Name: ? VALERY MILLER ?Department: ?? [address] ? Room: ? [id number] Gender: ? Male ? Candy Puller: ?? [id number] : ?1975 ? Requested By: ALEX MCDANIEL MD Order Number: [id number] ? Reading MD: ?? JOURDAN VAIL MD ? Measurements Intervals ?[place] ? Rate: ? 51 ? P: ?57 RI: ? 176 ?QRS: ?38 QRSD: ? 113 ?T: ?27 QT: ? 471 ? QTc: ?438 ? Interpretive Statements SINUS BRADYCARDIA INCOMPLETE RIGHT BUNDLE BRANCH BLOCK Non specific ST/ T wave abnormalities ??Edited by MARY PATEL MD on 10-16-2019 12:56:41 EDT. I reviewed the tracing and have either agreed or edited the findings in this report. Electronically Signed On 10-28-2019 9:27:25 EDT by JOURDAN VAIL MD. Procedure Note Jourdan Vail MD - 10/28/2019 [facility] Test Date: 2019-10-03 Pat Name: VALERY MILLER Department: [place] [address] Room: [facility] Gender: Male Candy Puller: [id number] : 1975 Requested By: ALEX MCDANIEL MD Order Number: [id number] Reading MD: JOURDAN VAIL MD Measurements Intervals [place] Rate: 51 P: 57 RI: 176 QRS: 38 QRSD: 113 T: 27 QT: 471 QTc: 438 Interpretive Statements SINUS BRADYCARDIA INCOMPLETE RIGHT BUNDLE BRANCH BLOCK Non specific ST/ T wave abnormalities Edited by MARY PATEL MD on 10-16-2019 12:56:41 EDT. I reviewed the tracing and have either agreed or edited the findings inthis report. Electronically Signed On 10-28-2019 9:27:25 EDT by JOURDAN ANAYA. Alex Mcdaniel MD CARDIAC ECG ORDERA BLES [facility] * MAGNESIUM (10/03/2019 5:17 EDT) Magnesium 2.2 1.7 - 2.8 mg/dL 10/03/2019 6:17 EDT [facility] Blood VENOUS BLOOD / Unknown Venipuncture / Unknown 10/03/2019 5:17 EDT 10/03/2019 5:48 EDT Lisa Montilla NP CHEMISTRY & B LOOD GAS ORDERABLES Performing Organization Address [facility] de Phone Number [facility] [address] [place] [address] * ELECTROLYTES (10/03/2019 5:17 EDT) Sodium 138 136 - 145 mEq/L 10/03/2019 6:17 EDT [facility] Potassium 4.2 3.5 - 5.0 mEq/L 10/03/2019 6:17 EDT [facility] Chloride 103 96 - 110 mEq/L 10/03/2019 6:17 EDT [facility] CO2 Total 27 22 - 32 mEq/L 10/03/2019 6:17 EDT [facility] Blood VENOUS BLOOD / Unknown Venipuncture / Unknown 10/03/2019 5:17 EDT 10/03/2019 5:48 EDT Lisa Montilla NP CHEMISTRY & B LOOD GAS ORDERABLES Performing Organization Address [facility] de Phone Number [facility] [address] [place] [address] * CREATININE (10/03/2019 5:17 EDT) Creatinine 0.76 0.66 - 1.25 mg/dL 10/03/2019 6:17 EDT [facility] eGFR 112 >60 mL/min/1.7 3m2 10/03/2019 6:17 EDT [facility] Comment:eGFR calculated jalyn funes CKD-EPI equation for non- Americans. Multiply eGFR by 1.16 for patients. Blood VENOUS BLOOD / Unknown Venipuncture / Unknown 10/03/2019 5:17 EDT 10/03/2019 5:48 EDT Lisa Montilla NP CHEMISTRY & B LOOD GAS ORDERABLES [facility] [address] [place] [address] * POST DOFETILIDE EKG (10/02/2019 22:35 EDT) 10/02/2019 22:3 5 EDT Narrative [facility] EKG - 10/15/2019 12:26 EDT ? [facility] ? Test Date: ?2019-10-02 Pat Name: ? VALERY MILLER ?Department: ?? [facility] [address] ? Room: ? [id number] Gender: ? Male ? Candy Puller: ?? [id number] : ?1975 ? Requested By: ALEX MCDANIEL MD Order Number: [id number] ? Reading : ?? HOPE LOUIS MD ? Measurements Intervals ?[place] ? Rate: ? 49 ? P: ?61 RI: ? 183 ?QRS: ?55 QRSD: ? 118 ?T: ?28 QT: ? 532 ? QTc: ?484 ? Interpretive Statements SINUS BRADYCARDIA INCOMPLETE RIGHT BUNDLE BRANCH BLOCK PROLONGED QT INTERVAL Compared to ECG 10/02/2019 18:17:44 Prolonged QT interval now present I reviewed the tracing and have either agreed or edited the findings in this report. Electronically Signed On 10-15-2019 12:26:17 EDT by HOPE LOUIS MD. Procedure Note Hope Louis MD - 10/15/2019 [facility] Test Date: 2019-10-02 Pat Name: VALERY MILLER Department: [place] [address] Room: [facility] Gender: Male Candy Puller: [id number] : 1975 Requested By: ALEX MCDANIEL MD Order Number: [id number] Reading MD: HOPE LOUIS MD Measurements Intervals [place] Rate: 49 P: 61 RI: 183 QRS: 55 QRSD: 118 T: 28 QT: 532 QTc: 484 Interpretive Statements SINUS BRADYCARDIA INCOMPLETE RIGHT BUNDLE BRANCH BLOCK PROLONGED QT INTERVAL Compared to ECG 10/02/2019 18:17:44 Prolonged QT interval now present I reviewed the tracing and have either agreed or edited the findings inthis report. Electronically Signed On 10-15-2019 12:26:17 EDT by HOPE KIDD. Alex Mcdaniel MD CARDIAC ECG ORDERA BLES Performing Organization Address [facility] Co de Phone Number [facility] * TSH (10/02/2019 18:22 EDT) TSH 2.56 0.47 - 4.68 uIU/mL 10/02/2019 19:16 EDT [facility] Blood VENOUS BLOOD / Unknown Venipuncture / Unknown 10/02/2019 18:22 EDT 10/02/2019 18:26 EDT Narrative [facility] - 10/02/2019 19:16 EDT The results of this assay can be falsely lowered due to the consumption of Biotin. Lisa Montilla NP CHEMISTRY & B LOOD GAS ORDERABLES Performing Organization Address [facility] Co de Phone Number [facility] [address] [place] [address] * MAGNESIUM (10/02/2019 18:22 EDT) Magnesium 2.2 1.7 - 2.8 mg/dL 10/02/2019 18:42 EDT [facility] Blood VENOUS BLOOD / Unknown Venipuncture / Unknown 10/02/2019 18:22 EDT 10/02/2019 18:26 EDT Lisa Montilla NP CHEMISTRY & B LOOD GAS ORDERABLES Performing Organization Address [facility] de Phone Number [facility] [address] [place] [address] * HEMOGLOBIN A1C (10/02/2019 18:22 EDT) Hemoglobin A1c 5.6 <5.7 % 10/05/2019 10:30 EDT [facility] Comment: Glycemic Status References: Normal: ??<5.7% Pre-Diabetes: ??5.7% - 6.4% Diagnostic of Diabetes: ??> or = 6.5% (if confirmed) Goals for glycemic control in diabetics (ADA 2017): <7.0% target for non adults with diabetes. <7.5% target for children and adolescents with Type I Diabetes. More or less stringent targets may be appropriate for individual patients. Est Avg Glucose 114 mg/dL 0 10:30 EDT [facility] Comment: The eAG represents the A1c result expressed as average glucose in mg/dL. Blood VENOUS BLOOD / Unknown Venipuncture / Unknown 10/02/2019 18:22 EDT 10/02/2019 18:26 EDT Lisa Montilla NP CHEMISTRY & B LOOD GAS ORDERABLES Performing Organization Address [facility] Co de Phone Number [facility] [address] [place] [address] * (ABNORMAL) GLUCOSE, SERUM (10/02/2019 18:22 EDT) Glucose 106(H) 70 - 100 mg/dL 10/02/2019 18:42 EDT [facility] Blood VENOUS BLOOD / Unknown Venipuncture / Unknown 10/02/2019 18:22 EDT 10/02/2019 18:26 EDT Lisa Montilla NP CHEMISTRY & B LOOD GAS ORDERABLES Performing Organization Address City/[facility] Co de Phone Number [facility] [address] [place] [address] * ELECTROLYTES (10/02/2019 18:22 EDT) Sodium 139 136 - 145 mEq/L 10/02/2019 18:42 EDT [facility] Potassium 4.0 3.5 - 5.0 mEq/L 10/02/2019 18:42 EDT [facility] Chloride 103 96 - 110 mEq/L 10/02/2019 18:42 EDT [facility] CO2 Total 28 22 - 32 mEq/L 10/02/2019 18:42 EDT [facility] Blood VENOUS BLOOD / Unknown Venipuncture / Unknown 10/02/2019 18:22 EDT 10/02/2019 18:26 EDT Lisa Montilla NP CHEMISTRY & B LOOD GAS ORDERABLES Performing Organization Address [facility] de Phone Number [facility] [address] [place] [address] * CREATININE (10/02/2019 18:22 EDT) Creatinine 0.79 0.66 - 1.25 mg/dL 10/02/2019 18:42 EDT [facility] eGFR 110 >60 mL/min/1.7 3m2 10/02/2019 18:42 EDT [facility] Comment:eGFR calculated jalyn funes CKD-EPI equation for non- Americans. Multiply eGFR by 1.16 for patients. Blood VENOUS BLOOD / Unknown Venipuncture / Unknown 10/02/2019 18:22 EDT 10/02/2019 18:26 EDT Lisa Montilla NP CHEMISTRY & B LOOD GAS ORDERABLES Performing Organization Address [facility] de Phone Number [facility] [address] [place] [address] * (ABNORMAL) COMPLETE BLOOD COUNT (10/02/2019 18:22 EDT) WBC 9.36 4.00 - 10.40 K/cmm 10/02/2019 18:34 EDT [facility] RBC 5.19 4.36 - 5.78 M/cmm 10/02/2019 18:34 T [facility] Hemoglobin 15.5 13.8 - 17.3 gm/dL 10/02/2019 18:34 EDT [facility] HCT 43.3 39.5 - 50.2 % 10/02/2019 18:34 EDT [facility] MCV 83 81 - 95 fl 10/02/2019 18:34 EDT [facility] MCH 29.9 27.6 - 33.0 pg 10/02/2019 18:34 EDT [facility] MCHC 35.8 32.8 - 36.4 gm/dL 10/02/2019 18:34 EDT [facility] RDW-CV 12.4 <14.2 % 10/02/2019 18:34 T [facility] RDW-SD 37.7 <46.0 fl 10/02/2019 18:34 EDT [facility] PLT 232 141 - 377 K/cmm 10/02/2019 18:34 T [facility] MPV 8.8(L) 9.5 - 12.7 fl 10/02/2019 18:34 EDT [facility] Blood VENOUS BLOOD / Unknown Venipuncture / Unknown 10/02/2019 18:22 EDT 10/02/2019 18:26 EDT Lisa Montilla NP HEMATOLOGY & PF4 ORDERABLES [facility] [address] [place] [address] * BUN (10/02/2019 18:22 EDT) BUN 12 10 - 26 mg/dL 10/02/2019 18:42 EDT [facility] Blood VENOUS BLOOD / Unknown Venipuncture / Unknown 10/02/2019 18:22 EDT 10/02/2019 18:26 EDT Lisa Montilla NP CHEMISTRY & B LOOD GAS ORDERABLES [facility] [address] [place] [address] * AST (10/02/2019 18:22 EDT) AST 27 15 - 46 U/L 10/02/2019 18:42 EDT [facility] Blood VENOUS BLOOD / Unknown Venipuncture / Unknown 10/02/2019 18:22 EDT 10/02/2019 18:26 EDT Lisa Montilla CHICK[employer] CLE[employer]ER CHEMISTRY & B LOOD GAS ORDERABLES Performing Organization Address [facility] Co de Phone Number [facility] [address] [place] [address] * ALT (10/02/2019 18:22 EDT) ALT 25 <50 U/L 10/02/2019 18:42 EDT [facility] Blood VENOUS BLOOD / Unknown Venipuncture / Unknown 10/02/2019 18:22 EDT 10/02/2019 18:26 EDT Lisa Montilla CH[employer]ER CHEMISTRY & B LOOD GAS ORDERABLES Performing Organization Address [facility] de Phone Number [facility] [address] [place] [address] * ALKALINE PHOSPHATASE (10/02/2019 18:22 EDT) Alkaline Phosphatase 53 38 - 126 U/L 10/02/2019 18:42 EDT [facility] Blood VENOUS BLOOD / Unknown Venipuncture / Unknown 10/02/2019 18:22 EDT 10/02/2019 18:26 EDT Lisa Montilla CH[employer]ER CHEMISTRY & B LOOD GAS ORDERABLES Performing Organization Address [facility] de Phone Number [facility] [address] [place] [address] * EKG 12-LEAD (10/02/2019 18:17 EDT) 10/02/2019 18:1 7 EDT Narrative [facility] EKG - 10/16/2019 13:54 EDT ? [facility] ? Test Date: ?2019-10-02 Pat Name: ? VALERY MILLER ?Department: ?? [address] ? Room: ? [id number] Gender: ? Male ? Candy Puller: ?? [id number] : ?1975 ? Requested By: LISA MONTILLA APRN Order Number: [id number] ? Reading MD: ?? VINNY NESBITT DE SA MD ? Measurements Intervals ?[place] ? Rate: ? 57 ? P: ?57 RI: ? 178 ?QRS: ?54 QRSD: ? 116 ?T: ?35 QT: ? 421 ? QTc: ?412 ? Interpretive Statements SINUS BRADYCARDIA POSSIBLE LEFT ATRIAL ENLARGEMENT INCOMPLETE RIGHT BUNDLE BRANCH BLOCK Automated Interpretation. ??Provider Interpretation to follow. No previous ECG available for comparison I reviewed the tracing and have either agreed or edited the findings in this report. Electronically Signed On 10-16-2019 13:54:04 EDT by VINNY ERICKSON SA, MD. Procedure Note Vinny Maldonado Sa, MD - 10/16/2019 [facility] Test Date: 2019-10-02 Pat Name: VALERY MILLER Department: [place] [address] Room: [facility] Gender: Male Candy Puller: [id number] : 1975 Requested By: LISA RONDON Order Number: [id number] Reading MD: VINNY MAJOR Measurements Intervals [place] Rate: 57 P: 57 RI: 178 QRS: 54 QRSD: 116 T: 35 QT: 421 QTc: 412 Interpretive Statements SINUS BRADYCARDIA POSSIBLE LEFT ATRIAL ENLARGEMENT INCOMPLETE RIGHT BUNDLE BRANCH BLOCK Automated Interpretation. Provider Interpretation to follow. No previous ECG available for comparison I reviewed the tracing and have either agreed or edited the findings inthis report. Electronically Signed On 10-16-2019 13:54:04 EDT by VINNY DONAHUE SA, MD. Lisa Montilla NP CARDIAC ECG O RDERABLES [facility] EKG documented in this encounter Visit Diagnoses Diagnosis AF (atrial fibrillation) (HCC-CMS)- Primary Atrial fibrillation Atrial fibrillation, unspecified type (HCC-CMS) Paroxysmal atrial fibrillation (HCC-CMS) Atrial fibrillation FABIO (obstructive sleep apnea) Obstructive sleep apnea (adult) (pediatric) A-fib (HCC-CMS) Atrial fibrillation AF (atrial fibrillation) (HCC-CMS) Atrial fibrillation documented in this encounter Admitting Diagnoses Diagnosis A-fib (HCC-CMS) Atrial fibrillation AF (atrial fibrillation) ([facility]) Atrial fibrillation documented in this encounter Administered Medications Inactive Administered Medications - up to 3 most recent administrations Medication Order MAR Action Action Date Dose Rate Site acetaminophen (TYLENOL) solution unit dose cup 995 mg 995 mg (rounded from 1,000 mg), oral, PRN, 1 dose, Starting on Sat10/05/19 at 1926, Until Sat10/06/19 at 1552, Pain, Routine, Recovery (only) acetaminophen (TYLENOL) tablet 1,000 mg 1,000 mg, oral, PRN, 1 dose, Starting on Sat10/05/19 at 1926, Until Sat10/06/19 at 1552, Pain, Routine, Recovery (only) acetaminophen (TYLENOL) tablet 650 mg 650 mg, oral, EVERY 4 HOURS PRN, Starting on Sat10/05/19 at 1831, Until Sat10/06/19 at 1552, Pain, Routine atropine 0.1 mg/mL syringe 0.5 mg 0.5 mg, intravenous, PRN, Starting on Sat10/05/19 at 1926, Until Sat10/06/19 at 1552, Symptomatic HR < 50, Routine, Recovery (only) DILTiazem (TIAZAC) ER capsule 120 mg 120 mg, oral, AT BEDTIME, First dose on Sat10/02/19 at 2100, Until Discontinued, Routine Given 10/05/2019 20:16 EDT 120 mg Given 10/04/2019 20:50 EDT 120 mg Given 10/03/2019 20:53 EDT 120 mg diphenhydrAMINE (BENADRYL) injection 12.5 mg 12.5 mg, intravenous, PRN, 1 dose, Starting on Sat10/05/19 at 1926, Until Sat10/06/19 at 1552, nausea, Routine, Recovery (only) dofetilide (TIKOSYN) capsule 125 mcg 125 mcg, oral, EVERY 12 HOURS, First dose (after last modification) on Sat10/04/19 at 0900, Until Discontinued, Routine Given 10/04/2019 20:49 EDT 125 mcg Given 10/04/2019 8:43 EDT 125 mcg dofetilide (TIKOSYN) capsule 250 mcg 250 mcg, oral, EVERY 12 HOURS, First dose (after last modification) on Sat10/03/19 at 0915, Until Discontinued, Routine Given 10/03/2019 20:54 EDT 250 mcg Given 10/03/2019 9:11 EDT 250 mcg dofetilide (TIKOSYN) capsule 500 mcg 500 mcg, oral, EVERY 12 HOURS, First dose on Sat10/02/19 at 2100, Until Discontinued, Routine Given 10/02/2019 20:32 EDT 500 mcg fentaNYL citrate (PF) injection 25-50 mcg 25-50 mcg, intravenous, EVERY 5 MIN PRN, Starting on Sat10/05/19 at 1926, Until Sat10/06/19 at 1552, Pain, Routine, Recovery (only) iohexoL (OMNIPAQUE 350) solution 100 mL 100 mL, intravenous, Once in imaging, 1 dose, Starting on Sat10/05/19 at 1022, Until Sat10/05/19 at 1047, Routine, Imaging Protocol Orders Given 10/05/2019 10:47 EDT 100 mL ketOROLAC (TORADOL) injection 15 mg 15 mg, intravenous, EVERY 6 HOURS, 8 doses, First dose on Sat10/05/19 at 1900, Last dose on Sat10/07/19 at 1300, Routine Given 10/06/2019 6:50 EDT 15 mg Given 10/06/2019 1:11 EDT 15 mg Given 10/05/2019 20:16 EDT 15 mg lactated ringers (LR) infusion at 75 mL/hr, intravenous, CONTINUOUS, Starting on Sat10/05/19 at 1945, Until Sat10/06/19 at 1552, Routine, Recovery (only) lisinopriL (PRINIVIL) tablet 20 mg 20 mg, oral, DAILY, First dose on Sat10/04/19 at 0915, Until Discontinued, Routine Given 10/06/2019 8:09 EDT 20 mg Given 10/05/2019 8:36 EDT 20 mg Given 10/04/2019 9:21 EDT 20 mg metoCLOPramide (REGLAN) injection 10 mg 10 mg, intravenous, PRN, 1 dose, Starting on Sat10/05/19 at 1926, Until Sat10/06/19 at 1552, Nausea, Routine, Recovery (only) naloxone (NARCAN) injection 0.2 mg 0.2 mg, intravenous, PRN, Starting on Sat10/05/19 at 1926, Until Sat10/06/19 at 1552, Opioid Reversal, Routine, Recovery (only) ondansetron (PF) (ZOFRAN) injection 4 mg 4 mg, intravenous, PRN, 1 dose, Starting on 10/05/19 at 1926, Until Sat10/06/19 at 1552, Nausea, Vomiting, Routine, Recovery (only) rivaroxaban (XARELTO) tablet 20 mg 20 mg, oral, DAILY WITH DINNER, First dose on Sat10/02/19 at 1845, Until Discontinued, Indications: prevention of thromboembolism in paroxysmal atrial fib, Is this a new start or continuation of therapy? Continuation, Routine Given 10/05/2019 21:28 EDT 20 mg Given 10/04/2019 17:37 EDT 20 mg Given 10/03/2019 16:36 EDT 20 mg sodium chloride 0.9 % (flush) flush 3 mL 3 mL, intravenous, EVERY 8 HOURS, First dose on Sat10/02/19 at 1815, Until Discontinued, Routine Given 10/06/2019 8:10 EDT Given 10/06/2019 1:11 EDT 3 mL Given 10/05/2019 8:37 EDT 3 mL sodium chloride 0.9 % (flush) flush 3 mL 3 mL, intravenous, PRN, Starting on Sat10/06/19 at 0800, Until Sat10/06/19 at 1552, Line Care, Routine testosterone (ANDROGEL) 20.25 mg/1.25 gram (1.62 %) transdermal gel gel in metered-dose pump 2 Pump 2 Pump (40.5 mg), topical, DAILY, First dose on Sat10/02/19 at 1830, Until Discontinued Given 10/06/2019 10:02 EDT 2 Pump Given 10/05/2019 8:36 EDT 2 Pump Given 10/04/2019 8:44 EDT 2 Pump documented in this encounter Discontinued Medications Medication Sig Discontinue Reason Start Date End Da te aspirin chewable 81 mg tablet Take 81 mg by mouth daily. Therapy completed 10/02/2019 metoprolol succinate 200 mg capsule,sprinkle,ER 24hr Take 200 mg by mouth daily. 10/02/2019 documented as of this encounter Historical Medications * This list may reflect changes made after this encounter. Medication Sig Dispensed Refills Start Date End Date testosterone (ANDROGEL) 20.25 mg/1.25 gram (1.62 %) transdermal gel pump Apply 40.5 mg topically daily. Tadalafil 2.5 mg tablet Take 2.5 mg by mouth daily. metoprolol succinate 200 mg capsule,sprinkle,ER 24hr Take 200 mg by mouth daily. 10/02/2019 rivaroxaban (XARELTO) 20 mg tablet tabletIndications:preventi on of thromboembolism in paroxysmal atrial fib Take 20 mg by mouth daily. 01/05/2020 added in this encounter Active and Recently Administered Medications Times are shown in EDT. Scheduled Medication Order 10/04/2019 10/05/2019 10/06/2019 DILTiazem (TIAZAC) ER capsule 120 mg 120 mg, oral, AT BEDTIME, First dose on Sat10/02/19 at 2100, Until Discontinued, Routine 2049 (Given - Provider: Sultana Alvarado, RN) 1222 (MAR Hold - Provider: Fortino Marshall RN - Reason: Patient off unit)182 (JUL Unhold - Provider: Lois Collado, SILVIA)2015 (Given - Provider: Michelle Rodriguez RN) dofetilide (TIKOSYN) capsule 125 mcg (CANCELED) 125 mcg, oral, EVERY 12 HOURS, First dose (after last modification) on Sat10/04/19 at 0900, Until Discontinued, Routine 0843 (Given - Provider: Bacilio Wayne RN)2048 (Given - Provider: Sultana Alvarado RN) iohexoL (OMNIPAQUE 350) solution 100 mL (COMPLETED) 100 mL, intravenous, Once in imaging, 1 dose, Starting on Sat10/05/19 at 1022, Until Sat10/05/19 at 1047, Routine, Imaging Protocol Orders 1047 (Given - Provider: Tatiana Mancilla) ketOROLAC (TORADOL) injection 15 mg 15 mg, intravenous, EVERY 6 HOURS, 8 doses, First dose on Sat10/05/19 at 1900, Last dose on Sat10/07/19 at 1300, Routine 2016 (Given - Provider: Michelle Rodriguez, RN) 0111 (Given - Provider: Michelle Rodriguez, RN)0650 (Given - Provider: Michelle Rodriguez RN)1300 (Canceled Entry - Provider: Batch Job User Admin - Comment: Automatically canceled at discontinue of medication order) lisinopriL (PRINIVIL) tablet 20 mg 20 mg, oral, DAILY, First dose on Sat10/04/19 at 0915, Until Discontinued, Routine 0921 (Given - Provider: Bacilio Wayne RN) 0836 (Given - Provider: Bacilio Wayne RN)1222 (JUL Hold - Provider: Fortino Marshall RN - Reason: Patient off unit)182 (JUL Unhold - Provider: Lois Collado RN) 0809 (Given - Provider: Ya Ding, SILVIA) rivaroxaban (XARELTO) tablet 20 mg 20 mg, oral, DAILY WITH DINNER, First dose on Sat10/02/19 at 1845, Until Discontinued, Indications: prevention of thromboembolism in paroxysmal atrial fib, Is this a new start or continuation of therapy? Continuation, Routine 1737 (Given - Provider: Brain Dorado RN) 1222 (JUL Hold - Provider: Fortino Marshall RN - Reason: Patient off unit)1700 (Automatically Held - Provider: Fortino Marshall RN)182 ([facility] Unhold - Provider: Lois Collado RN)2128 (Given - Provider: Michelle Rodriguez RN) sodium chloride 0.9 % (flush) flush 3 mL 3 mL, intravenous, EVERY 8 HOURS, First dose on Sat10/02/19 at 1815, Until Discontinued, Routine 0001 (Not Given - Provider: Bernarda Martinez RN - Reason: Patient/family refused - Comment: asleep)0924 (Given - Provider: Bacilio Wayne RN)1630 (Given - Provider: Brian Dorado RN)2347 (Given - Provider: Sultana Alvarado RN) 0837 (Given - Provider: Bacilio Wayne RN)1222 (JUL Hold - Provider: Fortino Marshall RN - Reason: Patient off unit)1600 (Automatically Held - Provider: Fortino Marshall RN)182 ([facility] Unhold - Provider: Lois Collado RN) 0111 (Given - Provider: Michelle Rodriguez, RN)0810 (Given - Provider: Ya Ding, SILVIA) testosterone (ANDROGEL) 20.25 mg/1.25 gram (1.62 %) transdermal gel gel in metered-dose pump 2 Pump 2 Pump (40.5 mg), topical, DAILY, First dose on Sat10/02/19 at 1830, Until Discontinued 0844 (Given - Provider: Bacilio Wayne, SILVIA) 0836 (Given - Provider: Bacilio Wayne RN)1222 (JUL Hold - Provider: Fortino Marshall RN - Reason: Patient off unit)1821 (JUL Unhold - Provider: Lois Collado, SILVIA) 1002 (Given - Provider: Ya Ding RN) Continuous Medication Order 10/04/2019 10/05/2019 10/06/2019 lactated ringers (LR) infusion at 75 mL/hr, intravenous, CONTINUOUS, Starting on Sat10/05/19 at 1945, Until Sat10/06/19 at 1552, Routine, Recovery (only) 1927 (Not Given - Provider: Deandra Eduardo RN - Reason: Order parameters not met) PRN Medication Order 10/04/2019 10/05/2019 10/06/2019 acetaminophen (TYLENOL) solution unit dose cup 995 mg(Linked Group 1) 995 mg (rounded from 1,000 mg), oral, PRN, 1 dose, Starting on Sat10/05/19 at 1926, Until Sat10/06/19 at 1552, Pain, Routine, Recovery (only) acetaminophen (TYLENOL) tablet 1,000 mg(Linked Group 1) 1,000 mg, oral, PRN, 1 dose, Starting on Sat10/05/19 at 1926, Until Sat10/06/19 at 1552, Pain, Routine, Recovery (only) acetaminophen (TYLENOL) tablet 650 mg 650 mg, oral, EVERY 4 HOURS PRN, Starting on Sat10/05/19 at 1831, Until Sat10/06/19 at 1552, Pain, Routine atropine 0.1 mg/mL syringe 0.5 mg 0.5 mg, intravenous, PRN, Starting on Sat10/05/19 at 1926, Until Sat10/06/19 at 1552, Symptomatic HR < 50, Routine, Recovery (only) diphenhydrAMINE (BENADRYL) injection 12.5 mg 12.5 mg, intravenous, PRN, 1 dose, Starting on Sat10/05/19 at 1926, Until Sat10/06/19 at 1552, nausea, Routine, Recovery (only) fentaNYL citrate (PF) injection 25-50 mcg 25-50 mcg, intravenous, EVERY 5 MIN PRN, Starting on Sat10/05/19 at 1926, Until Sat10/06/19 at 1552, Pain, Routine, Recovery (only) metoCLOPramide (REGLAN) injection 10 mg 10 mg, intravenous, PRN, 1 dose, Starting on Sat10/05/19 at 1926, Until Sat10/06/19 at 1552, Nausea, Routine, Recovery (only) naloxone (NARCAN) injection 0.2 mg 0.2 mg, intravenous, PRN, Starting on Sat10/05/19 at 1926, Until Sat10/06/19 at 1552, Opioid Reversal, Routine, Recovery (only) ondansetron (PF) (ZOFRAN) injection 4 mg 4 mg, intravenous, PRN, 1 dose, Starting on Sat10/05/19 at 1926, Until Sat10/06/19 at 1552, Nausea, Vomiting, Routine, Recovery (only) sodium chloride 0.9 % (flush) flush 3 mL(Linked Group 2) 3 mL, intravenous, PRN, Starting on Sat10/06/19 at 0800, Until Sat10/06/19 at 1552, Line Care, Routine Linked Groups Order Group 1: acetaminophen (TYLENOL) solution unit dose cup 995 mgJump to med 995 mg (rounded from 1,000 mg), oral, PRN, 1 dose, Starting on Sat10/05/19 at 1926, Until Sat10/06/19 at 1552, Pain, Routine, Recovery (only) Or acetaminophen (TYLENOL) tablet 1,000 mgJump to med 1,000 mg, oral, PRN, 1 dose, Starting on Sat10/05/19 at 1926, Until Sat10/06/19 at 1552, Pain, Routine, Recovery (only) Group 2: Change IV to Saline Lock (CANCELED) Routine, ONE TIME, On Sat10/06/19 at 0800, For 1 occurrence, Change after 500 ml PO intake And sodium chloride 0.9 % (flush) flush 3 mLJump to med 3 mL, intravenous, PRN, Starting on Sat10/06/19 at 0800, Until Sat10/06/19 at 1552, Line Care, Routine documented in this encounter Orders Medications Ordered That Melo ht Not Have Been Administered Count Last Ordered Date First Ordered Date acetaminophen (TYLENOL) solu tion unit dose cup 995 mg 1 10/05/2019 acetaminophen (TYLENOL) tablet 1,000 mg 1 0 10/05/2019 acetaminophen (TYLENOL) tablet 650 mg 1 03/2020 atropine 0.1 mg/mL syringe 0.5 mg 1 020 diphenhydrAMINE (BENADRYL) i njection 12.5 mg 1 10/05/2019 fentaNYL citrate (PF) injection 25-50 mcg 1 10/05/2019 heparin 1,000 unit/mL injection 1 0 heparin in 05/28 NS 25,000 uni t/250 mL infusion 1 10/05/2019 lactated ringers (LR) infusion 1 10/05/2019 metoCLOPramide (REGLAN) injection 10 mg 1 0 10/05/2019 naloxone (NARCAN) injection 0.2 mg 1 2019 ondansetron (PF) (ZOFRAN) injection 4 mg 1 10/05/2019 protamine 10 mg/mL injection 1 10/05/2019 sodium chloride 0.9 % (flush) flush 3 mL 1 10/05/2019 Nursing Count Last Ordered Date First Orde red Date VTE PHARMACOLOGIC PROPHYLAXI S CURRENTLY ORDERED OR ON ALTERNATIVE THER 2 10/05/2019 0 MD REVIEWED EKG, ADMINISTER NEXT DOSE OF DOFETILIDE AT SCHEDULED TIME 5 10/04/2019 10/02/2019 NOTIFY CASE MANAGEMENT 1 10/02/2019 IV Count Last Ordered Date First Orde red Date IV REQUEST 2 10/05/2019 10/02/2019 Admission Count Last Ordered Date First Orde red Date ADMIT TO INPATIENT 1 10/02/2019 Transfer Count Last Ordered Date First Orde red Date NON-TEACHING SERVICE 1 10/05/2019 Discharge Count Last Ordered Date First Orde red Date DISCHARGE PATIENT 1 10/06/2019 Case Request Count Last Ordered Date First Orde red Date CASE REQUEST EP LAB 1 10/05/2019 documented in this encounter Care Teams Oil Painter Relationship Specialty Start Date End Date Clayton Reid MD [address] [id number] PCP - General 10/02/19 documented as of this encounter
--- OUTSIDE RECORDS SUMMARY | 2023-12-15 11:02 | XMS_ITS | Encounter Summary ---
Author Organization [facility] [place] [address] Care Team Providers Care Lead Php Developer Name Role Phone Trae Gabriel MD Primary Care Provider [phone] Encounter Details Date Type Department Care Team (Late st Contact Info) Description 08/24/2008 [place] [address] Pool Weber MD PATHOLOGY DEPT [address] [place] [address] [place] [address] Social History Tobacco Use Types Packs/Day Years Used Date Smoking Tobacco: Never Assessed Sex and Gender Information Value Date Recorded Sex Assigned at Not on file Gender Identity Not on file Sexual Orientation Not on file documented as of this encounter Plan of Treatment Not on file documented as of this encounter Procedures Procedure Name Priority Date/Time Associated Diagnosis Comments SURGICAL PATHOLOGY REPORT Routine 08/24/2008 7:30 AM EDT documented in this encounter Results * Surgical Pathology Report (08/24/2008 7:30 AM EDT) Surgical Pathology Report [id number] ? Location: [facility] The signing pathologist has (i) examined the relevant preparation(s) for the specimen(s) and (ii) rendered or confirmed the diagnosis(es). . ?Pathology Surgical Pathology Final Report Clinical Information Specimen Submitted: CONSULTATION CASE A - 5 slides and 1 block labeled [id number], collection date 08/18/08. [id number] Report to: Pool Weber MD Department of Pathology [facility] [place], [place] ??[address] Gross Description [facility]'s pathology slide(s) are reviewed. ??Refer to Diagnosis and Specimen Submitted for specific case information. For the full text of the [facility] report(s) please refer to Non-DH Documentation Pathology in the Clinical Information System (CIS). Microscopic Description Slides reviewed, microscopic description not recorded. Diagnosis CONSULTATION CASE Mucosal biopsy, endoscopic biopsy ([id number], collection date 08/18/08) - Mildly active nonspecific proctocolitis. No significant thickening of subepithelial basement membrane. CR-0 08/25/08 AAS 08/25/08 Verified by: ? Madison JACOBO, Marcia Coelho ?Pathologist ?(Electronic Signature) The attending pathologist whose signature appears on this report has reviewed all diagnostic slides and has edited the gross and/or microscopic portion of the report in rendering the final pathologic diagnosis. BRETT REYES 08/24/2008 7:30 AM EDT Pool Weber MD PATHOLOGY/CYTOLOGY ORDERABLES BRETT REYES documented in this encounter Visit Diagnoses Not on filedocumented in this encounter Care Teams Lead Php Developer Relationship Specialty Start Date End Date Trae Gabriel MD [address] [place] [id number] PCP - General 04/18/10 documented as of this encounter
--- OUTSIDE RECORDS SUMMARY | 2023-12-15 11:02 | XMS_ITS | Encounter Summary ---
Author Organization [facility] Address [address] [place] [address] Care Team Providers Care Pressroom Supervisor Name Role Phone Clayton Reid MD Primary Care Provider [phone] Reason for Visit * Reason Comments Palpitations follow up Arrhythmia Encounter Details Date Type Department Care Team (Late st Contact Info) Description 01/05/2020 14:20 EDT Office Visit [facility] Cardiology - [address] [place], [place] [id number] Pool Box MD [address] [place] [address], [address] [place] [address] Paroxysmal atrial fibrillation (HCC-CMS) (Primary Dx) Social [...] Sign Reading Time Taken Comments Blood Pressure 126/84 01/05/2020 1425 EDT Pulse 98 01/05/2020 1425 EDT Temperature - - Respiratory Rate - - Oxygen Saturation 98% 01/05/2020 1425 EDT Inhaled Oxygen Concentration - - Weight 133.8 kg (295 lb) 01/05/2020 1425 EDT Height - - Body Mass Index 38.92 10/02/2019 1841 EDT documented in this encounter [...] as of this encounter Progress Notes * Pool Box MD - 01/05/2020 1420 EDT Subjective: Patient ID: Omid Miller is an 44 y.o. male. Chief Complaint Patient presents with ??? Palpitations follow up ??? Arrhythmia HPI Omid is here for A. fib follow-up. He is a very pleasant 44-year-old gentleman with a history ofPAF. He had QT prolongation on Tikosyn and came for A. fib ablation, about 3 months ago. He followslong-term with Dr. Mcdaniel. His procedure consisted of pulmonary vein encircling in isolation. He hadone episode of A. fib following the procedure but thinks he is been in sinus rhythm since. He denies any PND orthopnea or other heart failure symptoms. He has not noticed any palpitations that were typical for his A. fib in the past. He is otherwise low chads risk. No other complaints. Patient Active Problem List Diagnosis ??? S/P vasectomy ??? A-fib (HCC-CMS) ??? AF (atrial fibrillation) (HCC-CMS) Past Medical History: Diagnosis Date ??? A-fib (HCC-CMS) Past Surgical History: Procedure Laterality Date ??? VASECTOMY ??? WRIST SURGERY Family History Problem Relation Age of Onset ??? Prostate Cancer Neg Hx Social Social History Tobacco Use ??? Smoking status: Never Smoker ??? Smokeless tobacco: Never Used Substance Use Topics ??? Alcohol use: Yes Comment: occasional ??? Drug use: Not on file Current Outpatient Medications on File Prior to Visit Medication Sig Dispense Refill ??? DILTiazem (TIAZAC) 120 mg SR capsule Take 1 Cap by mouth at bedtime. 30 Cap 3 ??? lisinopriL (PRINIVIL) 20 mg tablet Take 1 Tab by mouth daily. (Patient not taking: Reported on 01/05/2020) 30 Tab 3 ??? lisinopriL-hydrochlorothiazide (ZESTORETIC) 20-25 mg per tablet Take 1 Tab by mouth daily. ??? Tadalafil 2.5 mg tablet Take 2.5 mg by mouth daily. ??? testosterone (ANDROGEL) 20.25 mg/1.25 gram (1.62 %) transdermal gel pump Apply 40.5 mg topically daily. No current facility-administered medications on file prior to visit. No Known Allergies ROS - See HPI Objective: BP 126/84 (BP Cuff Location: Left arm, BP Patient Position: Sitting, BP Cuff Sizes: Adult, large) Pulse 98 Wt (!) 133.8 kg (295 lb) SpO2 98% BMI 38.92 kg/m?? Physical Exam Gen: a/o x 3 Lungs: clear CV: rrr with normal s1s2 ABD: soft, nt, bs+ EXT: No edema Assessment: Omid is doing well status post catheter ablation of A. fib. At this point, he could come off hisEliquis and go back to a baby aspirin. He will continue to follow with [facility]. I be happy to see him back in the future if needed Thanks again Plan: (I48.0) Paroxysmal atrial fibrillation (HCC-CMS) (primary encounter diagnosis) Pool Box MD Med Orders Placed This Visit and Additions to the Medication List Medications ??? lisinopriL-hydrochlorothiazide (ZESTORETIC) 20-25 mg per tablet Sig: Take 1 Tab by mouth daily. documented in this encounter Plan of Treatment Not on file documented as of this encounter Visit Diagnoses Diagnosis Paroxysmal atrial fibrillation ([facility])- Primary Atrial fibrillation documented in this encounter Discontinued Medications Medication Sig Discontinue Reason Start Date End Da te rivaroxaban (XARELTO) 20 mg tablet tabletIndications:preventio n of thromboembolism in paroxysmal atrial fib Take 20 mg by mouth daily. 01/05/2020 documented as of this encounter Historical Medications * This list may reflect changes made after this encounter. Medication Sig Dispensed Refills Start Date End Date lisinopriL-hydrochlorothia zide (ZESTORETIC) 20-25 mg per tablet Take 1 Tab by mouth daily. added in this encounter Care Teams Pressroom Supervisor Relationship Specialty Start Date End Date Clayton Reid MD [address] [address] PCP - General 10/02/19 documented as of this encounter
--- OUTSIDE RECORDS SUMMARY | 2023-12-15 11:02 | XMS_ITS | Encounter Summary ---
Author Organization [facility] Address [address] [place] [address] Care Team Providers Care Chimney Mechanic Name Role Phone Clayton Reid MD Primary Care Provider [phone] Encounter Details Date Type Department Care Team (Late st Contact Info) Description 10/13/2019 Orders Only [facility] Cardiology - [address] [place], [place] [id number] Jose Peña RN Social History Tobacco Use Types Packs/Day Years [...] as of this encounter Progress Notes * Jose Peña, RN - 10/13/2019 1018 EDT Lab ordered entered in from [facility] documented in this encounter Plan of Treatment Not on file documented as of this encounter Procedures Procedure Name Priority Date/Time Associated Diagnosis Comments BASIC METABOLIC PANEL (BMP) Routine 10/12/2019 documented in this encounter Results * BASIC METABOLIC PANEL (BMP) (10/12/2019) GFR, Calculated, External 99 [facility] Glucose, Serum, External 100 [facility] Calculated Calcium, External [facility] BUN, External 18 [facility] Calcium, External 8.9 [facility] Chloride, External 101 [facility] CO2, External 31 [facility] Creatinine, External 1.00 [facility] Fasting?, External y [facility] Potassium, External 4.0 [facility] Sodium, External 139 [facility] Blood VENOUS BLOOD / Unknown 10/12/2019 Niurka Montilla LICENSED OCCUPATIONAL THERAPIST CHEMISTRY & B LOOD GAS ORDERABLES POINT [facility] C[facility] documented in this encounter Visit Diagnoses Not on filedocumented in this encounter Care Teams Chimney Mechanic Relationship Specialty Start Date End Date Clayton Reid MD [address] [phone] PCP - General 10/02/19 documented as of this encounter
--- OUTSIDE RECORDS SUMMARY | 2023-12-15 11:02 | XMS_ITS | Referral Summary ---
Author Organization [facility] Address [address] [place] [address] Care Team Providers Care Photographs Curator Name Role Phone Clayton Reid MD Primary Care Provider [phone] Allergies No known active allergies Medications Medication Sig Dispensed Refills Start Date End Date Status Tadalafil 2.5 mg tablet Take 2.5 mg by mouth daily. Active testosterone (ANDROGEL) 20.25 mg/1.25 gram (1.62 %) transdermal gel pump Apply 40.5 mg topically daily. Active DILTiazem (TIAZAC) 120 mg SR capsule Take 1 Cap by mouth at bedtime. 30 Cap 3 10/06/2019 Active lisinopriL (PRINIVIL) 20 mg tablet Take 1 Tab by mouth daily. 30 Tab 3 10/30/2019 Active Additional Information Patient not taking.Reported on 01/05/2020 lisinopriL-hydrochlo rothiazide (ZESTORETIC) 20-25 mg per tablet Take 1 Tab by mouth daily. Active Active Problems Problem Noted Date Diagnosed Date A-fib ([facility]) 10/02/2019 AF (atrial fibrillation) ([facility]) 10/02/2019 Overview: Added automatically from request for surgery [id number] S/P vasectomy 01/31/2016 Social History Tobacco Use Types Packs/Day Years [...] on file Sexual Orientation Not on file Last Filed Vital Signs Vital Sign Reading Time Taken Comments Blood Pressure 126/84 01/05/2020 1425 EDT Pulse 98 01/05/2020 1425 EDT Temperature 35.8 ??C (96.4 ??F) 10/06/2019 0749 EDT Respiratory Rate 16 10/06/2019 0749 EDT Oxygen Saturation 98% 01/05/2020 1425 EDT Inhaled Oxygen Concentration - - Weight 133.8 kg (295 lb) 01/05/2020 1425 EDT Height 185.4 cm (6' 1) 10/02/2019 1841 EDT Body Mass Index 38.92 10/02/2019 1841 EDT Functional Status Functional Status Response Date of [...] (5 years old or older) No 10/02/2019 Plan of Treatment Not on file Advance Directives For more information, please contact: [phone] * Full Code (Latest Code Status on File) Date Activated Date Inactivated Comments 10/02/2019 17:55 10/06/2019 15:57 Question Answer Comments Reason for decision includes: Full code consistent with overall plan of care Who participated in the discussion? Not Discusse d Care Teams Photographs Curator Relationship Specialty Start Date End Date Clayton Reid MD [address] [phone] PCP - General 10/02/19
--- OUTSIDE RECORDS SUMMARY | 2023-12-15 11:02 | XMS_ITS | Data Portability ---
Author Organization [place] - [facility] Address [address] [place] [address] Care Team Providers Care Funeral Service Manager Name Role Phone GILMAR VASQUEZ Primary Care Provider Assessment Encounter Date Assessment Date Assessment LastModified by Organization Details LastModified Time 05/01/2023 05/01/2023 Total Provider Time TODAY: 35 Minutes [email or web address] Not available 05/05/2023 14:34:04 08/07/2023 08/07/2023 Total Provider Time TODAY: 35 Minutes [email or web address] Not available 08/07/2023 17:26:13 Plan of Treatment Reminders Order Date Submit Date Provider Last Modified By Organization Details Last Modified Time Details Appointments Annual Wellness Exam 40 2023 08:00A M Gilmar Vasquez Not available Not available Not available Lab hemoglobi n A1C, fingersti ck 2022 023 [email or web address] [facility], [address], [place], [address], 05/02/2023 08:21:39 Referral None recorded. Procedures None recorded. Surgeries None recorded. Imaging None recorded. Medication Orders tadalafil 5 mg tablet 2022 023 [facility], [address] [place] [address], [address], [place], [address], 05/01/2023 17:14:32 Victoza 3-Denny 0.6 mg/0.1 mL (18 mg/3 mL) subcutane ous pen injector 2022 023 [facility], [address], [address], [place], [address], 05/01/2023 17:14:32 metformin ER 500 mg tablet,ex tended release 24 hr 2022 023 [facility], [address], [address], [place], [address], 05/01/2023 17:14:32 Patient TargetsNo targets recorded. Patient Instructions Encounter Date Encounter Id Patient Instructions Last Modified By Organization Details Last Modified Time 08/07/2023 [id number] Follow up as scheduled for your annual exam in January. I will send in more pen needles. You may decrease Victoza as we discussed. HOWEVER - once you've been off the medication for 2-3 months, I would like you schedule an A1C lab draw here in the clinic (as a nurse visit) - you would need to call to schedule. Call with questions. [email or web address] Not available 08/07/2023 17:09:06 Reason for Referral None Reported. Results Created Date Observation Date Name Description Value Unit Range Abnormal Flag LastModifiedBy Organization Detail LastModifiedTime 05/01/20 23 05/01/2023 hemog lobin A1C, marcoe rstic k HbA1C 5.8 Not Available [facility] [address] , [place], [address], 05/01/2023 16:55:44 10/30/19 24 10/30/2023 VITAM IN B12 vitamin B12 1152 pg/mL 193-98 6 high Not Available [facility] [address] [place] [address] [place] [facility] [place], [address] 10/30/2023 10:12:29 06/10/19 24 05/10/2023 sleep study , diagn ostic (PROC ) No observ ation record ed. [email or web address] [facility] [address] [place] [address] Dr [facility] [place], [address], 06/10/2023 09:06:40 07/08/19 24 07/07/2023 physi abigail dsu disch arge repor t PHYSIC TONYA DSU DISCHA RGE REPORT PATIEN T NAME: Sandra Mckeon UNIT #: [id number] ADMITT ING PROVID ER: Lincoln Allison M.D. ACCOUN T #: [id number] PRIMAR Y CARE PROVID ER: GILMAR VASQUEZ [employer] DATE OF ADMIT: : 1975 Date of servic e: Time of Servic e: 09:37 Discha rge Plan Dispos ition Patien t Dispos ition: Home Condit ion: Good Discha rge Detail s Reason For Visit: screen ing colono scopy Attend ing Provid er: Lincoln Allison Primar y Care Provid er: GILMAR VASQUEZ Home Meds and New Rx's Prescr iption s: Contin ued Victoz a 2-Denny 0.6 mg/0.1 mL (18 mg/3 mL) pen inject or 0.6 mg subcut DAILY metfor min 500 mg tablet extend ed releas e 24 hr 1,000 mg PO BID tadala meseret 5 mg tablet 5 mg PO DAILY atorva statin 40 mg tablet 40 mg PO DAILY losart an-hyd rochlo rothia zide 50-12. 5 mg tablet 1 tab PO HS Patien t Commen ts: TAKE 1 TABLET BY MOUTH ONCE A DAY FOR HIGH BLOOD PRESSU RE aspiri n [Aspir -81] 81 MG tablet ,delay ed releas e (DR/EC ) 81 mg PO DAILY diltia zem HCl 120 mg capsul e,exte nded releas e 24 hr 120 mg PO HS Patien t Commen ts: TAKE ONE CAPSUL E BY MOUTH AT BEDTIM E Discon tinued bisaco dyl [Dulco lax (bisac odyl)] 5 mg tablet ,delay ed releas e (DR/EC ) 5 mg PO ONCE Qty: 4 0RF Rx Instru ctions : Colono scopy Bowel Prep- Per Instru ctions polyet hylene glycol 3350 17 gram/d ose powder 238 g PO ONCE Qty: 238 0RF Rx Instru ctions : Colono scopy Bowel Prep- Per Instru ctions Discha rge Instru ctions Instru ctions : Anorec glory Absces s and Anal Fistul a (GEN), Colore ctal Polyps (GEN) Additi onal Instru ctions : Toby, we were able to comple te your colono scopy today withou t any diffic ulty. I did find a total of 4 polyps that I remove d comple tely. When I have the result s of the polyp report , I will be in touch with recomm endati ons for the timing of your next colono scopy. 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 This is an abnorm al connec tion betwee n the anal canal or rectum and the charger operator al skin. I have attach ed a little bit of inform ation here regard ing these types of fistul a (or connec tions) . I do think it is smart for you to consid er surgic al resect ion of this. Like we talked about before hand, it would requir e a differ ent type of anesth etic, and some operat joshua planni ng as it can be fairly uncomf ortabl e given the locati on of it. Lets see how you recove r from the colono scopy, and we can always set up an appoin tment in the office to schedu le excisi on of the fistul a after you have given it some consid eratio n if you would like to move forwar d with that. 1. If tolera melina, consum e a soft, low fiber diet for 1-2 [address]. [address], drink alcoho l, operat e ihsan shaniqua, make critic al decisi ons, or do activi ties that requir e coordi nation or balanc e for 24 hours. 3. Becaus e air was put into your colon during the proced ure, expell ing air from your rectum (pass ing gas or farti ng) is normal . 4. You may not have a bowel moveme nt for 1-3 days becaus e of the colono scopy prep. This is normal . 5. Go direct ly to the emerge ncy room if you notice any of the follow ing: Develo p chills (warm to touch) , or if you have a thermo meter and your temper ature is above 101 Diffic ulty breath ing or diffic ultly swallo wing Persis tent vomiti ng Severe abdomi nal pain, other than gas cramps Severe chest pain Black, tarry stools Any bleedi ng ??? exceed ing one tables violeta 6. Call your physic tonya if the site where your intrav enous was starte d become s red, swolle n, painfu l, and warm to touch. 7. Your physic tonya has review ed your pre-pr ocedur e medica tions. Please contin ue to take those medica tions as previo usly ordere d. You will be given specif ic inform ation/ educat ion regard ing any change s to your medica tions before daminomi thao Activi ty:: Activi ty as Tolera melina Diet:: As Tolera melina Discha rge Orders Discha rge Orders : Discha rge Order (Germaine dee); Ordere d Ordere d By: Lincoln Allison DS: Diagno sis Discha rge Diagno sis (1) Encoun ter for screen ing colono scopy: Status : Acute Asessm ent and Plan: Follow -up on polype ctomy result s cc: ------ ------ ------ ------ ------ ------ ------ ------ ------ ------ ------ --- Dictat ed by: Lincoln Allison M.D. Dictat ed: Time: 1626 Date: 938 Date: Date: Transc ribed Date: Transc ribed Time: 1626 By: BRISA Corey This is privil eged, confid ential inform ation, intend ed only for the provid er named. Any use or distri bution by any person other than this provid er is strict ly prohib ited. If you receiv e this report in error, please notify us immbraden nielsen at and return the origin al report to us at the addres s above. Thank you. [place] [address], [place], [address] 07/09/2023 08:45:16 07/08/19 24 07/07/2023 colon oscop y repor t COLONO SCOPY REPORT PATIEN T NAME: Sandra Mckeon UNIT #: [id number] ADMITT ING PROVID ER: Lincoln Allison M.D. ACCOUN T #: [id number] PRIMAR Y CARE PROVID ER: GILMAR VASQUEZ [employer] G[employer] DATE OF ADMIT: : 1975 Date of servic e: Time of Servic e: 09:39 Colono scopy Report Date of proced ure: Pre-op diagno sis genera l: screen ing colono scopy Post-o p diagno sis proced ure note: other (Fistu la in ano, colore ctal polyps ) Proced ure: Colono scopy Surgeo n: Lincoln lAlison Anesth esia Type: Genera l:No Airway Estima melina blood loss (mL): 10 Pathol ogy: other (Recta l polyps x 2, 0.5 cm cecal polyp, 0.5 cm polyp at 95 cm) Compli cation s: None Dispos ition: same day Indica tions: Cornel maya is a 47 year old man who needs a screen ing colono scopy Prep: Mirala x/Dulc olax Proced ure Start Time: 09:14 Proced ure End Time: 09:30 Retrac tion Time: 8 Findin gs: Fistul a in ano, Rectal polyps x 2, 0.5 cm cecal polyp, 0.5 cm polyp at 95 cm Proced ure Descri ption: After the induct ion of monito red anesth etic care, and with the patien t in left latera l decubi tus positi on, I began by perfor jamia an charger operator al anorec glory exam.? ?? To the left of the anus, approx imatel y 5 to 6 cm away was a small area of indura tion on the dermis . Clinic al featur es seem consis tent with anorec glory fistul a. The exact trajec tory was diffic ult to deciph er. anal verge was normal . There was no eviden ce of charger operator al hemorr hoids. ??? Next, I perfor med a digita l rectal exam.? ?? I did not apprec iate any abnorm al findin gs.??? Next, I advanc ed a colono scope into the rectal vault. ??? I perfor med retrof lexion .??? This appear ed normal .??? Within the lower portio n of the rectal vault in the middle were severa l flat polyps . Narrow band imagin g was used to assist with analys is. One had some featur es consis tent with a adenom atous polyp, and this was remove d with cold forcep s. The rest all appear ed benign . One was about 0.5 cm, so I did remove this 1 for pathol ogic testin g. Polype ctomie s were perfor med with cold forcep s withou t any signif icant bleedi ng. Using insuff lation , I then advanc ed the colono scope beyond the rectal folds and into the sigmoi d colon before advanc ing toward s the cecum. ??? The scope was noted to be in the cecum by identi ficati on of the ileoce india valve and append iceal orific e.??? Within the cecum was a 0.5 cm flat polyp. This was remove d with cold forcep s. I then began withdr awing the colono scope using repeat ed irriga tion as necess luis f for full evalua tion of the coloni c mucosa . I found anothe r flat polyp at 95 cm from the anus. This was also flat. It was remove d with cold forcep s simila r to the other polyps . There was no worris ome bleedi ng here. ???Onc e the scope was withdr awn to the level of the rectum , great care was taken to examin e portio ns of the rectal folds. ??? Finall y, the scope was withdr awn and the patien t was hellen t to the same-d ay surger y recove ry unit as the anesth etic wore off. ???The findin gs and instru ctions were shared with the patien t prior to discha rge. Ridgeway Bowel Prep Ridgeway Bowel Prep Right Colon: 3 Left Colon: 3 Transv erse Colon: 3 Total Score: 9 cc: GILMAR VASQUEZ [employer] ANETTE,DA GABRIELLA L ------ ------ ------ ------ ------ ------ ------ ------ ------ ------ ------ --- Dictat ed by: Lincoln Allison M.D. Dictat ed: Time: 162 Date: 942 Date: Date: Transc ribed Date: Transc ribed Time: 1628 By: BRISA Corey This is privil eged, confid ential inform ation, intend ed only for the provid er named. Any use or distri bution by any person other than this provid er is strict ly prohib ited. If you receiv e this report in error, please notify us immedi morales at and return the origin al report to us at the addres s above. Thank you. [email or web address] [facility] [address], [place], [address] 07/09/2023 08:45:17 10/24/19 24 10/24/2023 vrad philip t Bebe t Name: Sandra Mckeon Unit #: [id number] Loc: ER Orderi ng Provid er: Accoun t #: [id number] Status : REG ER Primar y Care Provid er: GILMAR VASQUEZ NP Date of Exam: 09/26 Sex: M : 1975 Age: 48 Exam(s ) PROCED URE INFORM ATION: Exam: XR Right Toe(s) Exam date and time: 024 8:10 PM Age: 48 years old Clinic al indica tion: Other: 4th toe infect ion, R/O osteom yeliti s TECHNI QUE: Imagin g protoc ol: Radiol ogic exam of the right toes. Views: Minimu m 2 views. COMPAR SABINE: No releva nt prior studie s availa ble. FINDIN GS: Bones/ joints : Normal . Soft tissue s: Soft tissue swelli ng involv es the 4th and to a lesser extent 5th toe with swelli ng in the forefo ot soft tissue s. IMPRES AADM: No acute bony abnorm ality noted. Dictat ed and Yudith hameed d by: Anahi jorgensen MD. Sharona ng:Spencer mosher MD Access ion#=[id number] Ordere d By: CC: ------ ------ ------ ------ ------ ------ ------ ------ ------ ------ ------ ------ ---- Dictat ed By: Report s vrad 2009 Transc ribed By: Brenda Merge 2009 This is privil eged, confid ential inform ation intend ed only for the provid er named. Any use or distri bution by any person other than this provid er is strict ly prohib ited. If you receiv e this report in error, please notify us immedi pedroly at and return the origin al report to us at the addres s above. Thank- you. [email or web address] [facility] [address], [place], [address] 11/17/2023 09:05:45 10/25/19 24 10/25/2023 x-ray imagi autumn palacios t Bebe t Name: Sandra Mckeon Unit #: [id number] Loc: ER Orderi ng Provid er: Meliton Vergara t #: [id number] Status : DEP ER Primar y Care Provid er: GILMAR VASQUEZ NP Date of Exam: 09/26 Sex: M Admiss ion Date: : 1975 Age: 48 Exam(s ) XR FOOT RT LIMITE D EXAM: XR FOOT RT LIMITE D CLINIC AL HISTOR Y: 4th toe infect ion, r/o osteom yeliti s. TECHNI QUE: 2D digita l imagin g was perfor med of the right foot. Two images were obtain ed. AP, obliqu e and latera l views were obtain ed. COMPAR SABINE: No exams were availa ble for compar sabine FINDIN GS: BONES: No acute fractu re is presen t. No bony destru ctive lesion is seen. There is an enthes ophyte at the foreign language professor ior calcan eus. There is a small planta r calcan eal spur. JOINTS : No disloc ation presen t. SOFT TISSUE : There is diffus e soft tissue swelli ng of the 4th toe. No radiop aque foreig n body is identi fied. IMPRES ADAM: Soft tissue swelli ng of the 4th toe. No radiop aque foreig n body. No findin gs to sugges t osteom yeliti s at this time. Follow -up as clinic staciey andra moffett. DATA REPOSI TORY: RADIAT ION DOSE DELIVE RED: Ordere d By: Meliton Vergara CC: ------ ------ ------ ------ ------ ------ ------ ------ ------ ------ ------ ------ - Dictat ed By: Pool Allison M.D. 08802 Transc ribed By: Pool Allison 802 This is privil eged, confid ential inform ation intend ed only for the provid er named. Any use or distri bution by any person other than this provid er is strict ly prohib ited. If you receiv e this report in error, please notify us immedi ately at and return the origin al report to us at the addres s above. Thank- you. [email or web address] [facility] [address], [place], [address] 11/17/2023 09:05:46 Result Notes None recorded. Problems Name Status Onset Date Resolution Date Notes Provider Name and Address Organization Details Recorded Time Essential hypertension Active 2022 KORI Murray - [facility] 13:14:01 Erectile dysfunction Active 2022 BIBIANA mcgill [facility] 4 13:13:55 Chronic pain Completed 202208/07/[address], [place], [address] , [facility] 4 17:16:37 Severe obesity Active [address], [facility] [address] , [facility] 4 17:16:14 Anxiety Active 2022 BIBIANA mcgill, [facility] 4 13:13:48 Pure hyperglyceridemi a Active [address], [place], [address] , [facility] 4 17:16:18 Testicular hypofunction Completed 202208/07/[address], [place], [address] , [facility] 4 17:16:11 Counseling Completed 202209/26/2022 Problem Code: Z71.89; Problem Code Type: ICD-10; Not Available [facility] 3 04:33:01 History of cardiovascular disease Active [address], [facility] [address] , [facility] 4 17:16:27 Obstructive sleep apnea syndrome Active 2022 UNTREATED BIBIANA mcgill, [facility] 4 13:14:28 Family history of neurological disorder Active [address], [facility] [address] , [facility] 4 17:15:59 History of vasectomy Active 2022 YOVANY NORWOOD [address], [place], [address] , [facility] 4 17:16:23 Hyperlipidemia Active 2022 BIBIANA mcgill, [facility] 4 13:14:07 Type 2 diabetes mellitus without complication Active 2022 BIBIANA mcgill, [facility] 4 13:14:35 Heart disease Completed 202209/25/2022 Problem Code: I51.9; Problem Code Type: ICD-10; Not Available [facility] 3 04:33:02 Dyspnea Completed 202209/25/2022 Problem Code: R06.02; Problem Code Type: ICD-10; Not Available [facility] 3 04:33:03 Paroxysmal atrial fibrillation Completed 202209/25/2022 Problem Code: I48.0; Problem Code Type: ICD-10; Not Available [facility] 3 04:33:04 Atrial fibrillation Active [address], [place], [address] [place] [address] 3 14:29:17 Adult health examination Completed 202208/07/[address], [facility] [address] [place] [address] 4 17:16:04 Candidal balanitis Completed 202204/01/2023 Problem Code: B37.42; Problem Code Type: ICD-10; Not Available [facility] 4 05:36:37 Venereal disease screening Completed 202204/01/2023 Problem Code: Z11.3; Problem Code Type: ICD-10; Not Available [facility] 4 05:36:37 Metatarsalgia Active 2022 GILMAR VASQUEZ, [employer] [address] , [place], [address] , [facility] 17:16:20 Problem Notes None recorded. Procedures Surgical History None recorded. Imaging Results Imaging Date Name Status LastModified by Organiz ation Details LastModified Time 05/10/2023 sleep study, diagnostic (PROC) completed [address] [facility] [address] [place] [address] [place], [address], 06/10/2023 09:06:40 07/07/2023 physician dsu discharge report completed [address] [place], [address] 07/09/2023 08:45:16 07/07/2023 colonoscopy report completed [address] [place], [address] 07/09/2023 08:45:17 10/24/2023 vrad report completed [address] [place], [address] 11/17/2023 09:05:45 10/25/2023 x-ray imaging report completed [address] [place], [address] 11/17/2023 09:05:46 Procedure Notes None recorded. Medical Equipment None Reported. Allergies No known drug allergies Medications Name Sig Start Date Stop Date Status Note LastModified by Organization Details LastModified Time atorvastati n 40 mg tablet TAKE 1 TABLET BY MOUTH ONCE A DAY FOR HIGH CHOLESTER OL 2023 active Not Available Not Available Not Avai lable tramadol 50 mg tablet TAKE ONE TO TWO TABLETS BY MOUTH EVERY 4 TO 6 HOURS NEEDED FOR PAIN MAXIMUM DAILY DOSE = 6 TABLETS 08/06 completed Not Available Not Available Not Available Cartia XT 120 mg capsule,ext ended release TAKE 1 CAPSULE BY MOUTH ONCE A DAY FOR BLOOD PRESSURE 2023 active Not Available Not Available Not Avai lable bisacodyl 5 mg tablet,macho yed release TAKE TABLETS BY MOUTH ONCE DIRECTED FOR COLONOSCO PY BOWEL PREP PER INSTRUCTI ONS active Not Available Not Available No t Available polyethylen e glycol 3350 17 gram/dose oral powder DRINK BY MOUTH ONCE FOR COLONOSCO PY PREP PER INSTRUCTI ONS 08/06 completed Not Available Not Available Not Available losartan 50 mg-hydrochl orothiazide 12.5 mg tablet TAKE 1 TABLET BY MOUTH ONCE A DAY FOR HIGH BLOOD PRESSURE 2023 active Not Available Not Available Not Avai lable metformin ER 500 mg tablet,exte nded release 24 hr TAKE TWO TABLETS BY MOUTH TWICE A DAY active Not Available Not Available No t Available clotrimazol e 1 % topical cream APPLY A SMALL AMOUNT TO AFFECTED AREA(S) TWO TIMES A DAY UNTIL SYMPTOMS RESOLVE active Not Available Not Available No t Available tadalafil 5 mg tablet Take 1 tablet by mouth once a day 2022 active Not Available Not Available Not Avai lable Novofine 32 32 gauge x 1/4 needle Use 1 needle subcutane ously once a day 2022 active Not Available Not Available Not Avai lable Victoza 3-Denny 0.6 mg/0.1 mL (18 mg/3 mL) subcutaneou s pen injector Inject 1.8 mg every day by subcutane ous route in the morning. 2022 active Not Available Not Available Not Avai lable Trulicity 0.75 mg/0.5 mL subcutaneou s pen injector Inject 3/4 mg subcutane ously once a week 01/31 completed Not Available Not Available Not Available Vitals Date Recorded Body height Body mass index (BMI) Body weight Body temperature Oxygen saturation Oxygen saturation in Arterial blood by Pulse oximetry Heart rate Systolic blood pressure Diastolic blood pressure Provider Name and Address Organization Details Last Updated DateTime 3 182.88 cm 39.4 kg/m2 292294. 22 g 97.7 [degF] 99 % 99 % 107 /min 131 mm[Hg] 68 mm[Hg] Elena Gaffney [place] [facility]. 3 16:29:32 Date Recorded Body height Body mass index (BMI) Body weight Body temperature Oxygen saturation Oxygen saturation in Arterial blood by Pulse oximetry Heart rate Systolic blood pressure Diastolic blood pressure Provider Name and Address Organization Details Last Updated DateTime 182.88 cm 40.1 kg/m2 979264. 55 g 99.1 [degF] 99 % 99 % 92 /min 121 mm[Hg] 78 mm[Hg] Elena Gaffney [place] [facility] 16:30:17 Social History None recorded. Functional Status None recorded. Mental Status None recorded. Family History Relationship Description Onset Age of this Age Resolved Age Notes Maternal Grandfather Family history of ischemic heart disease Medical History No medical history recorded. Past Encounters Encounter ID Performer Location Encounter Start Date Encounter Closed Date Diagnosis/Indication Diagnosis SNOMED-CT Code [id number] GILMAR VASQUEZ [facility] [address] [place] [address] 05/01/2023 16:12:21 05/02/2023 08:40:10 Type 2 diabetes mellitus without complication [id number] Adult [facility] examination 289256916 Erectile dysfunction 860 003147 Essential hypertension 01020705 Atrial fibrillation 4943 6004 Hyperlipidemia 69185307 Anxiety 04064971 Obstructiv e sleep apnea syndrome 57127389 [id number] GILMAR VAQSUEZ [facility] [address] [place] [address] 08/07/2023 16:06:49 08/08/2023 07:57:33 Type 2 diabetes mellitus without complication [id number] Erectile dysfunction 860 819836 Essential hypertension 76331200 Atrial fibrillation 4943 6004 Hyperlipidemia 76537086 Anxiety 66688702 Obstructiv e sleep apnea syndrome 90742122 Health Concerns Section Related Observation LastModified by Organization Detai ls LastModified Time None Recorded Concern Status LastModified by Organization Details LastModified Time None Recorded Advance Directives Directive None Recorded Payers Encounter Date Sequence Insurance Name Policy Number Policy Owusu Covered Member ID Owusu Member ID Guarantor Name 05/01/2023 1 [place] [employer] [place] Omid Miller [id number] Omid Miller 08/07/2023 1 [place] [place] Omid Miller [id number] Omid Miller Notes Date Note Type Note Provider Name and Address Organization Details Recorded Time 05/01/2023 text/html HPI Notes: Toby presents to [facility] today for routine chronic care follow-up, with a focus on diabetes and hypertension. Medical history includes diabetes, obesity, FABIO (untreated), history of A-fib with ablation, hypertension, anxiety and depression. [facility] [facility] 09/25/2022. GILMAR VASQUEZ, YOVANY [address], [place], [address], [facility]. 05/05/2023 14:34:10 08/07/2023 text/html HPI Notes: Toby presents to [facility] for routine chronic care follow-up, with a focus on diabetes and hypertension. Medical history includes diabetes, obesity, FABIO (untreated), history of A-fib with ablation, hypertension, anxiety and depression. Recently re-established care with [facility] 09/25/2022. GILMAR VASQUEZ, YOVANY [address], [place], [address], [facility], [facility]. 08/07/2023 17:26:17
--- OUTSIDE RECORDS SUMMARY | 2023-12-15 11:02 | XMS_ITS | Encounter Summary ---
Author Organization [facility] Address [address] [place] [address] Care Team Providers Care Designated Broker Name Role Phone Clayton Reid MD Primary Care Provider Reason for Visit * Reason Onset Date Comments Appointment Related 10/20/2019 Encounter Details Date Type Department Care Team (Late st Contact Info) Description 10/20/2019 Telephone [facility] Cardiology - [address] [place] [address] Michelle Wells, PATRICIA [address] [facility] [address] [place] [address] Appointment Related Social History Tobacco Use Types Packs/Day Years [...] No 10/02/2019 documented as of this encounter Miscellaneous Notes * Telephone Encounter - Ya Zavala - 10/20/2019 1359 EDT UNABLE TO REACH PT REGARDING APPT ON 10.21.19 documented in this encounter Plan of Treatment Not on file documented as of this encounter Visit Diagnoses Not on filedocumented in this encounter Care Teams Designated Broker Relationship Specialty Start Date End Date Clayton Reid MD [address] [phone] PCP - General 10/02/19 documented as of this encounter
--- OUTSIDE RECORDS SUMMARY | 2023-12-15 11:02 | XMS_ITS | Encounter Summary ---
Author Organization [facility] Address [address] [place] [address] Care Team Providers Care Architect Name Role Phone Clayton Reid MD Primary Care Provider [phone] Reason for Visit * Reason Onset Date Comments Appointment Related 01/04/2020 Encounter Details Date Type Department Care Team (Late st Contact Info) Description 01/04/2020 Telephone [facility] Cardiology - [address] [place] [address] Pool Box MD [address] [facility] [address] [place] [address] Appointment Related Social History Tobacco Use Types [...] * Telephone Encounter - Ya Zavala - 01/04/2020 1326 EDT UNABLE TO REACH PT TO CHECK IN PT FOR APPT ON 01.05.20 documented in this encounter Plan of Treatment Not on file documented as of this encounter Visit Diagnoses Not on filedocumented in this encounter Care Teams Architect Relationship Specialty Start Date End Date Clayton Reid MD [address] [phone] PCP - General 10/02/19 documented as of this encounter
--- OUTSIDE RECORDS SUMMARY | 2023-12-15 11:02 | XMS_ITS | Clinical Summary ---
Author Organization [facility] Address [address] [place] [address] Care Team Providers Care Plant Manager Name Role Phone Clayton Reid MD Primary Care Provider [phone] Allergies No known active allergies Medications Medication [...] Problems Problem Noted Date Diagnosed Date A-fib ([facility]) 10/02/2019 AF (atrial fibrillation) ([facility]) 10/02/2019 Overview: Added automatically from request for surgery [id number] S/P vasectomy 01/31/2016 Surgical History Surgery Date Site/Laterality Comments WRIST SURGERY VASECTOMY Medical History Medical History Date Comments A-fib ([facility]) Family History Medical History Relation Comments Prostate Cancer Neg Hx Social History Tobacco Use Types Packs/Day Years [...] on file Sexual Orientation Not on file Obstetrics History Last Filed Vital Signs Vital Sign Reading [...] Body Mass Index 38.92 10/02/2019 1841 EDT Plan of Treatment Health Maintenance Due Date Last Done Comments Hepatitis C Screen 1975 Hepatitis B Vaccine (1 of 3 - 19+ 3-dose series) 07/20 COVID-19 Vaccine ( season) 2023 Advance Directives For more information, please contact: [phone] * Full Code (Latest Code Status on File) Date Activated Date Inactivated Comments 10/02/2019 17:55 10/06/2019 15:57 Question Answer Comments Reason for decision includes: Full code consistent with overall plan of care Who participated in the discussion? Not Discusse d Care Teams Plant Manager Relationship Specialty Start Date End Date Clayton Reid MD [address] [address] PCP - General 10/02/19
--- OUTSIDE RECORDS SUMMARY | 2023-12-15 11:02 | XMS_ITS | Encounter Summary ---
Author Organization [facility] Address [address] [place] [address] Care Team Providers Care Manager Project Management Name Role Phone Clayton Reid MD Primary Care Provider [phone] Reason for Visit * Auth/Cert Specialty Diagnoses / Procedures Referred By Contac t Referred To Contact Diagnoses A-fib ([facility]) Afib/Tikosyn Referral ID Status Reason Start Date Expiration Date Visits Re quested Visits Authorized [id number] 1 1 Encounter Details Date Type Department Care Team (Late st Contact Info) Description 10/05/2019 12:12 EDT Anesthesia Event [facility] [address] [place], [place] [id number] Eligio Deng MD [address] [place] [phone] Ana Rea, [facility] [address] [place] [phone] Anesthesia Record Procedure Summary Procedure Name Responsible Anesthesiologist Anesthesia Start Time Anesthesia Stop Time Ablation A-Fib (Chest) Eligio Deng MD 10/05/19 1212 10/05/19 1630 Events Date Time Event Comment 10/05/2019 1212 An Start The patient was re-evaluated immediately before moderate or deep sedation use, before anesthesia induction, or before the anesthesia procedure. 1212 An Start Data 1222 In Room 1229 An Induction The patient was reevaluated immediately before moderate or deep sedation use and before anesthesia induction. 1232 An Intubation 1245 Anesthesia Ready 1249 Proc Start 1347 Arie Esophogeal temp probe repositioned. 1559 An Extubation Patient SV wit h adequate Tidal Volumes, RR and oxygenation. SXN'd and extubated to FM/NC as appropriate. 1610 Proc Fin 1612 Out of Room 1615 an stop data PATIENT transpo rted to recovery on NC and FIO2. Report to RN VSS. 1630 Handoff to RN I completed my handoff to the receiving nurse during which we: 1. Identified the patient 2. Identified the responsible provider 3. Reviewed the pertinent medical history 4. Discussed the surgical course 5. Reviewed intra-op anesthesia management and issues during anesthesia 6. Set expectations for post-procedure period 7. Allowed opportunity for questions and acknowledgement of understanding. 1630 An Stop Meds Name Total dexaMETHasone (DECADRON) injection 4 mg/ mL (for IV doses up to 10mg) 4 mg ePHEDrine injection 15 mg fentanyl citrate (PF) injection 100 mcg glycopyrrolate (ROBINUL) injection 0.4 m g lidocaine injection 2 % 100 mg midazolam (VERSED) injection 1 mg/mL 2 m g neostigmine (BLOXIVERZ) injection 1 mg/m l 3 mg ondansetron (PF) (ZOFRAN) injection 4 mg phenylephrine inj 100 mcg/ml syringe 100 mcg propOFol (DIPRIVAN) injection 200 mg rocuronium (ZEMURON) injection 10 mg/mL 140 mg succinylcholine (ANECTINE) injection 20 mg/mL 140 mg phenylephrine (CORDELL-SYNEPHRINE) infusion in NS 7,650 mcg protamine injection 50 mg heparin injection 1,000 units/mL 22,000 Units heparin infusion 100 units/mL in 0.45% N aCl 4,173.33 Units lactated ringers (LR) infusion 1,000 mL * Agents Name Exp Sevoflurane (Aux) Insp Sevoflurane (Aux) O2 N2O Air * Blood No blood administrations on file. Lines, Drains, and Airways Type Details Placement Removal Peripheral IV 10/02/19; 1901; 09/24 10/13; B Ruias Introcan; Left, Anterior, Distal; Forearm; Inserted by RN; 1; None; 3.15% Chlorhexidine with IPA; 10/06/19; 1124; Discharged; No complications, Catheter intact 10/02/191901 by Kristian Nunez RN 10/06/19 1124 by Ya Ding RN Peripheral IV 10/05/19; 1009; 09/24 01/13; B Urias Introcan; Left; Antecubital; Inserted by RN; 1; None; 2% Chlorhexidine with IPA; 10/06/19; 1126; Discharged; No complications, Catheter intact 10/05/19 1009 by Chrystal Mendoza RN 10/06/19 1126 by Ya Ding RN Arterial Catheter 10/05/19; 1245; 20; Radial; Left; At bedside by Provider; Chlorhexidine; No; 10/05/19; 1716; No complications, Pressure held minimum of 5 min. 10/05/19 1245 by Ana Rea CRNA 10/05/19 1716 by Lincoln Billings RN Non-Surgical Airway 10/05/19; 1302 (amadeo summers via procedure documentation); 10/05/19; 1559 10/05/19 1302 by Ana Rea CRNA 10/05/19 1559 by Ana Rea CRNA documented in this encounter Social History Tobacco Use Types Packs/Day Years [...] No 10/02/2019 documented as of this encounter OR Notes * Anesthesia Postprocedure Evaluation - Ana Rea APRN - 10/05/2019 1630 EDT Patient: Omid Miller Vital signs were reviewed with the recovery nurse. [facility] Value Taken Time BP 146/84 10/05/2019 16:25 Temp . 10/05/2019 16:30 Resp 12 10/05/2019 16:29 Pulse From Oximetry 66 BPM 10/05/2019 16:29 SpO2 100 % 10/05/2019 16:29 Vitals shown include unvalidated device data. Last Pain Score - Numeric Pain Level (Scale 1-10): (P) 0 Type of Anesthesia - general Anesthesia Post Evaluation Level of consciousness: alert and oriented Temperature status: normothermia Respiratory status: airway patent and nasal cannula Cardiovascular status: acceptable Hydration status: adequate Nausea/Vomiting: none Pain management: adequate Post-Op Assessment: patient tolerated procedure well with no complications Patient participation: able to participate Disposition: inpatient Anesthesia Complications: No apparent anesthesia complications * Anesthesia Procedure Notes - Eligio Deng MD - 10/05/2019 1450 EDT Associated Order(s): Arterial Line Placement Arterial Line Placement Staffing Anesthesiologist: Eligio Deng MD Performed: anesthesiologist Consent: Verbal consent obtained. Risks and benefits: risks, benefits and alternatives were discussed Consent given by: patient Patient understanding: patient states understanding of the procedure being performed Patient identity confirmed: verbally with patient, arm band, provided demographic data and hospital-assigned identification number Time out: Immediately prior to procedure a time out was called to verify the correct patient, procedure, equipment, computer network support specialist and site/side marked as required. Preparation: Patient was prepped and draped in the usual sterile fashion. Indications: hemodynamic monitoring Location: left radial Needle gauge: 20 Number of attempts: 2 Ultrasound Guided? yesUltrasound Guidance Details:needle visualized entering vessel Post-procedure: dressing applied Patient tolerance: Patient tolerated the procedure well with no immediate complications Comments: Eligio Deng MD * Anesthesia Procedure Notes - Ana Rea APRN - 10/05/2019 1301 EDT Associated Order(s): Airway Airway Date/Time: 10/05/2019 12:32 Urgency: elective General Information and Staff Patient location during procedure: OR Anesthesiologist: Eligio Deng MD Resident/RESIDENTIAL DIRECT SUPPORT PROFESSIONAL: Ana Rea APRN Performed: resident/RESIDENTIAL DIRECT SUPPORT PROFESSIONAL/AA Indications and Patient Condition Indications for airway management: anesthesia Sedation level: GA Preoxygenated: yes Patient position: sniffing Ventilation assessment: 0 - not attempted Final Airway Details Final airway type: endotracheal airway Successful airway: ETT Cuffed: yes Successful intubation technique: direct laryngoscopy Facilitating devices/methods: intubating stylet Endotracheal tube insertion site: oral Blade: Manuela Blade size: #3 ETT size (mm): 7.5 Cormack-Lehane Classification: grade IIa - partial view of glottis Placement verified by: chest auscultation and capnometry Measured from: teeth ETT to teeth (cm): 23 Number of attempts at approach: 1 * Anesthesia Preprocedure Evaluation - Eligio Deng MD - 10/05/2019 1019 EDT Anesthesia Preprocedure Evaluation Patient Medical History, including Anesthesia History reviewed. Chart and Nursing Notes reviewed, including NPO status and Medication History. Additional ROS/History Findings: 44 y/o with PMH of HTN, HDL, obesity (BMI 37.6) and untreated FABIO. Afib was first diagnosed in 2007, at that time he underwent DCCV at [facility]. ECHO showed a normal EF and a mildly dilated LA. He did well until the??end of August where he began to complain ofepisodes of dizziness, SOB and palpitations. He followed up with Dr. Mcdaniel who noted Afib and started him on Metoprolol XL 100 mg and Xarelto 20 mg daily. His [id number] score is 1 for HTN. A followup Event monitor showed multiple episodes of Afib lasting 10 minutes to hours with heart rates up to 180 bpm. Repeat ECHO on 09/30/19 showed a preserved EF of 55% and a mild to moderately dilated LA. Patient being brought to the EP lab for ablation. ?? No Known Allergies Review of Systems Past Medical History: Diagnosis Date ??? A-fib ([facility]) Relevant Problems CARDIOVASCULAR (+) A-fib ([facility]) (+) AF (atrial fibrillation) ([facility]) Lab Results Component Value Date WBC 9.36 10/02/2019 HGB 15.5 10/02/2019 HCT 43.3 10/02/2019 MCV 83 10/02/2019 PLT 232 10/02/2019 No results found for: INR, PROTIME Lab Results Component Value Date NA 137 10/05/2019 K 4.3 10/05/2019 CL 103 10/05/2019 CO2 27 10/05/2019 Lab Results Component Value Date CREATININE 0.87 10/05/2019 Lab Results Component Value Date ALT 25 10/02/2019 AST 27 10/02/2019 ALKPHOS 53 10/02/2019 Physical Exam Airway Mallampati: III Neck ROM: full Cardiovascular Dental - normal exam Pulmonary Abdominal Anesthesia Plan ASA 3 Anesthesia Type - general Anesthesia Plan Details to include - arterial line. Anesthesia plan and risks discussed. Informed consent obtained from patient. Code status discussed? Yes PAT Note (Notes from 09/05/19 through 10/05/19) No notes of this type exist for this encounter. documented in this encounter Plan of Treatment Not on file documented as of this encounter Procedures Procedure Name Priority Date/Time Associated Diagnosis Comments ANESTHESIA ARTERIAL LINE PLACEMENT Routine 10/05/2019 14:50 EDT ANESTHESIA INTUBATION Routine 10/05/2019 13:01 EDT documented in this encounter Results * Arterial Line Placement (10/05/2019 14:50 EDT) Narrative POINT OF CARE [facility] - 10/05/2019 14:50 EDT Eligio Deng MD ? 10/05/2019 14:51 Arterial Line Placement Staffing Anesthesiologist: Eligio Deng MD Performed: anesthesiologist Consent: Verbal consent obtained. Risks and benefits: risks, benefits and alternatives were discussed Consent given by: patient Patient understanding: patient states understanding of the procedure being performed Patient identity confirmed: verbally with patient, arm band, provided demographic data and hospital-assigned identification number Time out: Immediately prior to procedure a time out was called to verify the correct patient, procedure, equipment, computer network support specialist and site/side marked as required. Preparation: Patient was prepped and draped in the usual sterile fashion. Indications: hemodynamic monitoring Location: left radial Needle gauge: 20 Number of attempts: 2 Ultrasound Guided? yesUltrasound Guidance Details:needle visualized entering vessel Post-procedure: dressing applied Patient tolerance: Patient tolerated the procedure well with no immediate complications Comments: Eligio Deng MD Eligio Deng MD ANESTHESIA ORDERABL ES POINT OF CARE [facility] * AK AN ELECTIVE ENDOTRACHEAL AIRWAY (10/05/2019 13:01 EDT) Narrative Ana Rea APRN - 10/05/2019 13:01 EDT Ana Rea APRN ? 10/05/2019 13:02 Airway Date/Time: 10/05/2019 12:32 Urgency: elective General Information and Staff Patient location during procedure: OR Anesthesiologist: Eligio Deng MD Resident/RESIDENTIAL DIRECT SUPPORT PROFESSIONAL: Ana Rea APRN Performed: resident/RESIDENTIAL DIRECT SUPPORT PROFESSIONAL/AA Indications and Patient Condition Indications for airway management: anesthesia Sedation level: GA Preoxygenated: yes Patient position: sniffing Ventilation assessment: 0 - not attempted Final Airway Details Final airway type: endotracheal airway Successful airway: ETT Cuffed: yes Successful intubation technique: direct laryngoscopy Facilitating devices/methods: intubating stylet Endotracheal tube insertion site: oral Blade: Manuela Blade size: #3 ETT size (mm): 7.5 Cormack-Lehane Classification: grade IIa - partial view of glottis Placement verified by: chest auscultation and capnometry Measured from: teeth ETT to teeth (cm): 23 Number of attempts at approach: 1 Eligio Deng MD ANESTHESIA ORDERABL ES documented in this encounter Visit Diagnoses Not on filedocumented in this encounter Administered Medications Inactive Administered Medications - up to 3 most recent administrations Medication Order MAR Action Action Date Dose Rate Site dexaMETHasone (DECADRON) injection PRN, Starting on Sat10/05/19 at 1229, Until Sat10/05/19 at 1630, Routine, Anesthesia Intraprocedure Given 10/05/2019 12:29 EDT 4 mg ePHEDrine injection 25 mg/5 mL syringe intravenous, PRN, Starting on Sat10/05/19 at 1254, Until Sat10/05/19 at 1630, Routine, Anesthesia Intraprocedure Given 10/05/2019 13:01 EDT 10 mg Given 10/05/2019 12:54 EDT 5 mg fentaNYL citrate (PF) injection intravenous, PRN, Starting on Sat10/05/19 at 1229, Until Sat10/05/19 at 1630, Routine, Anesthesia Intraprocedure Given 10/05/2019 12:29 EDT 100 mcg glycopyrrolate (ROBINUL) injection intravenous, PRN, Starting on Sat10/05/19 at 1553, Until Sat10/05/19 at 1630, Routine, Anesthesia Intraprocedure Given 10/05/2019 15:53 EDT 0.4 mg heparin 1,000 unit/mL injection PRN, Starting on Sat10/05/19 at 1319, Until Sat10/05/19 at 1630, Routine, Anesthesia Intraprocedure Given 10/05/2019 15:21 EDT 3,000 Units Given 10/05/2019 14:42 EDT 3,000 Units Given 10/05/2019 13:58 EDT 2,000 Units heparin in 1/2 NS 25,000 unit/250 mL infusion FA IP EQF CONTINUOUS PRN FOR ONE STEP MEDS, Starting on Sat10/05/19 at 1319, Until Sat10/05/19 at 1630, Routine, Anesthesia Intraprocedure Rate Change 10/05/2019 15:21 EDT 2,300 Units/hr 23 mL/hr Rate Change 10/05/2019 14:42 EDT 2,000 Units/hr 20 mL/hr Rate Change 10/05/2019 13:58 EDT 1,700 Units/hr 17 mL/hr lactated ringers (LR) infusion FA IP EQF CONTINUOUS PRN FOR ONE STEP MEDS, Starting on Sat10/05/19 at 1212, Until Sat10/05/19 at 1630, Routine, Anesthesia Intraprocedure New Bag 10/05/2019 16:05 EDT New Bag 10/05/2019 12:12 EDT lidocaine 20 mg/mL (2 %) injection other, PRN, Starting on Sat10/05/19 at 1229, Until Sat10/05/19 at 1630, Routine, Anesthesia Intraprocedure Given 10/05/2019 12:29 EDT 100 mg midazolam (PF) (VERSED) injection intravenous, PRN, Starting on Sat10/05/19 at 1613, Until Sat10/05/19 at 1630, Routine, Anesthesia Intraprocedure Given 10/05/2019 16:13 EDT 1 mg Given 10/05/2019 16:12 EDT 1 mg neostigmine methylsulfate (BLOXIVERZ) injection intravenous, PRN, Starting on Sat10/05/19 at 1553, Until Sat10/05/19 at 1630, Routine, Anesthesia Intraprocedure Given 10/05/2019 15:53 EDT 3 mg ondansetron (PF) (ZOFRAN) injection intravenous, PRN, Starting on Sat10/05/19 at 1545, Until Sat10/05/19 at 1630, Routine, Anesthesia Intraprocedure Given 10/05/2019 15:45 EDT 4 mg phenylephrine HCl in 0.9% NaCl (NEO_SYNEPHRINE) 20 mg/250 mL (80 mcg/mL) infusion solution FA IP EQF CONTINUOUS PRN FOR ONE STEP MEDS, Starting on Sat10/05/19 at 1249, Until Sat10/05/19 at 1630, Routine, Anesthesia Intraprocedure Rate Change 10/05/2019 15:49 EDT 20 mcg/min 15 mL/h r Rate Change 10/05/2019 14:06 EDT 40 mcg/min 30 mL/hr Rate Change 10/05/2019 13:26 EDT 50 mcg/min 37.5 mL/hr phenylephrine HCl in 0.9% NaCl injection iv push, PRN, Starting on Sat10/05/19 at 1244, Until Sat10/05/19 at 1630, Routine, Anesthesia Intraprocedure Given 10/05/2019 12:44 EDT 100 mcg propOFol (DIPRIVAN) injection intravenous, PRN, Starting on Sat10/05/19 at 1229, Until Sat10/05/19 at 1630, Routine, Anesthesia Intraprocedure Given 10/05/2019 12:29 EDT 200 mg protamine injection PRN, Starting on Sat10/05/19 at 1547, Until Sat10/05/19 at 1630, Routine, Anesthesia Intraprocedure Given 10/05/2019 15:49 EDT 10 mg Given 10/05/2019 15:48 EDT 20 mg Given 10/05/2019 15:47 EDT 10 mg rocuronium (ZEMURON) injection intravenous, PRN, Starting on Sat10/05/19 at 1245, Until Sat10/05/19 at 1630, Routine, Anesthesia Intraprocedure Given 10/05/2019 15:21 EDT 20 mg Given 10/05/2019 14:16 EDT 20 mg Given 10/05/2019 13:49 EDT 30 mg succinylcholine (ANECTINE) injection intravenous, PRN, Starting on Sat10/05/19 at 1229, Until Sat10/05/19 at 1630, Routine, Anesthesia Intraprocedure Given 10/05/2019 12:29 EDT 140 mg documented in this encounter Care Teams Manager Project Management Relationship Specialty Start Date End Date Clayton Reid MD [address] [phone] PCP - General 10/02/19 documented as of this encounter
--- OUTSIDE RECORDS SUMMARY | 2023-12-15 11:03 | XMS_ITS | Encounter Summary ---
Author Organization [facility] Address [address] [place] [address] Care Team Providers Care Irish Moss Gatherer Name Role Phone Unknown, Provider Primary Care Provider [phone] Clayton Reid MD Primary Care Provider [phone] Encounter Details Date Type Department Care Team (Late st Contact Info) Description 08/25/2019 Lab Requisition [facility] Pathology & Laboratory Medicine - [address] [address] Unknown, Provider, Social History Tobacco Use Types Packs/Day Years [...] Functional Status Response Date of Assess ment Because of a physical, menta l, or emotional condition, does this person have difficulty doing errands alone such as visiting a doctor's office or shopping? No 01/31/2016 Cognitive Status Response Date of Assessm ent Because of a physical, menta l, or emotional condition, does this person have serious difficulty concentrating, remembering, or making decisions? No 01/31/2016 documented as of this encounter Plan of Treatment Not on file documented as of this encounter Procedures Procedure Name Priority Date/Time Associated Diagnosis Comments SYPHILIS SEROLOGY Routine 08/24/2019 16: 37 EDT documented in this encounter Results * SYPHILIS SEROLOGY (08/24/2019 16:37 EDT) Syphilis Serology Negative Negative 08/26/2019 11:17 EDT [facility] Blood VENOUS BLOOD / Unknown 08/24/2019 16:37 EDT 08/25/2019 21:00 EDT Provider Unknown IMMUNOLOGY AND SEROL OGY ORDERABLES Performing Organization Address City/State/[facility] Co de Phone Number [facility] [address] [place] [address] documented in this encounter Visit Diagnoses Not on filedocumented in this encounter Care Teams Irish Moss Gatherer Relationship Specialty Start Date End Date Unknown, Provider, PCP - General 01/26/16 10/01/19 Clayton Reid MD [address] [phone] PCP - General 10/02/19 documented as of this encounter
--- OUTSIDE RECORDS SUMMARY | 2023-12-15 11:03 | XMS_ITS | Encounter Summary ---
Author Organization [facility] Address [address] [place] [address] Care Team Providers Care Assembler Latches And Springs Name Role Phone Clayton Reid MD Primary Care Provider Reason for Visit * Reason Onset Date Comments Atrial Fibrillation 10/02/2019 Encounter Details Date Type Department Care Team (Late st Contact Info) Description 10/02/2019 Telephone [facility] Cardiology [place] [address] Alex Mcdaniel MD Atrial Fibrillation Social History Tobacco Use Types Packs/Day Years [...] No 01/31/2016 documented as of this encounter Miscellaneous Notes * Telephone Encounter - Alex Mcdaniel MD - 10/02/2019 0935 EDT 44 year old male with Hx of AF. 30 day event monitor showed very rapid PAF up to 180/min despite Toprol XL 100 mg/day. 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 Plan for URGENT admission this evening for: 1. Dofetilide drug loading over 72 hours 2. Change from B jaky to Diltiazem as pt. Is poorly tolerating B jaky. 3. Anticoagulation 4. Pt is a candidate for possible future AF ablation. See Sofie notes and tests. documented in this encounter Plan of Treatment Not on file documented as of this encounter Visit Diagnoses Not on filedocumented in this encounter Care Teams Assembler Latches And Springs Relationship Specialty Start Date End Date Clayton Reid MD [address] [phone] PCP - General 10/02/19 documented as of this encounter
--- OUTSIDE RECORDS SUMMARY | 2023-12-15 11:03 | XMS_ITS | Encounter Summary ---
Author Organization [facility] Address [address] [place] [address] Care Team Providers Care Project Management Intern Name Role Phone Unknown, Provider Primary Care Provider [phone] Clayton Reid MD Primary Care Provider [phone] Encounter Details Date Type Department Care Team (Late st Contact Info) Description 08/25/2019 Lab Requisition [facility] Pathology & Laboratory Medicine - [address] [address] Unknown, Provider, Social History Tobacco Use Types [...] Comments CHLAMYDIA/N. GONORRHOEAE AMPLIFIED NUCLEIC ACID Routine 08/24/2019 16:49 EDT documented in this encounter Results * CHLAMYDIA/N. GONORRHOEAE AMPLIFIED RNA (08/24/2019 16:49 EDT) Neisseria gonorrhoeae Result Negative Negative 08/26/2019 12:58 EDT [facility] Chlamydia trachomatis Result Negative Negative 08/26/2019 12:58 EDT [facility] Urine URINE / Unknown 08/24/2019 1 6:49 EDT 08/25/2019 21:04 EDT Provider Unknown MICROBIOLOGY - GENER AL ORDERABLES [facility] [address] [place] [address] documented in this encounter Visit Diagnoses Not on filedocumented in this encounter Care Teams Project Management Intern Relationship Specialty Start Date End Date Unknown, Provider, PCP - General 01/26/16 10/01/19 Clayton Reid MD [address] [phone] PCP - General 10/02/19 documented as of this encounter
--- OUTSIDE RECORDS SUMMARY | 2023-12-15 11:03 | XMS_ITS | Encounter Summary ---
Author Organization [facility] Address [address] [place] [address] Care Team Providers Care Manager Of Pharmacy Name Role Phone Unknown, Provider Primary Care Provider [phone] Clayton Reid MD Primary Care Provider [phone] Encounter Details Date Type Department Care Team (Late st Contact Info) Description 09/26/2019 Telephone [facility] Cardiology - [facility] [address] [place] [address] Michelle Wells NP [address] [facility] [address] [place] [address] Social History Tobacco Use Types Packs/Day Years [...] Miscellaneous Notes * Telephone Encounter - Alex Mcbride MD - 09/26/2019 0303 EDT Called by [employer] about auto triggered event for patient Omid Miller. Event was afib with rates up to 180 bpm. Per previous messages his primary Dr Mcdaniel has been notified. The phone number helen on file for patient is now disconnected. Alex Mcbride PGY-5 Watershed Engineer 09/26/20193:06 documented in this encounter Plan of Treatment Not on file documented as of this encounter Visit Diagnoses Not on filedocumented in this encounter Care Teams Manager Of Pharmacy Relationship Specialty Start Date End Date Unknown, Provider, PCP - General 01/26/16 10/01/19 Clayton Reid MD [address] [phone] PCP - General 10/02/19 documented as of this encounter
--- OUTSIDE RECORDS SUMMARY | 2023-12-15 11:03 | XMS_ITS | Encounter Summary ---
Author Organization [facility] Address [address] [place] [address] Care Team Providers Care Asset Management Coordinator Name Role Phone Unknown, Provider Primary Care Provider [phone] Clayton Reid MD Primary Care Provider [phone] Encounter Details Date Type Department Care Team (Late st Contact Info) Description 10/01/2019 Documentation Visit [facility] Cardiology - [address] [address] Michelle Wells NP [address] [facility] [address] [place] [address] Social History Tobacco Use Types [...] No 01/31/2016 documented as of this encounter Progress Notes * Michelle Wells APRN - 10/01/2019 2548 EDTMrAyesha Miller contacted the office with the co-pay monthly of D0F ET [place] WILIAM. It is $5 per month. He also denies any fever chills cough, he has not traveled outside of the [place] or been near anyone who is traveled outside the [place] for the past 3 months so he is symptom co-vivid 19-. He is waiting for a bedto be admitted for dofetilide on Saturday. Thank you for allowing me to participate in his care Michelle Wells APRN documented in this encounter Plan of Treatment Not on file documented as of this encounter Visit Diagnoses Not on filedocumented in this encounter Care Teams Asset Management Coordinator Relationship Specialty Start Date End Date Unknown, Provider, PCP - General 01/26/16 10/01/19 Clayton Reid MD [address] [phone] PCP - General 10/02/19 documented as of this encounter
--- OUTSIDE RECORDS SUMMARY | 2023-12-15 11:03 | XMS_ITS | Encounter Summary ---
Author Organization [facility] Address [address] [place] [address] Care Team Providers Care Classification Control Clerk Name Role Phone Clayton Reid MD Primary Care Provider [phone] Reason for Visit * Reason Onset Date Comments Appointment Related 10/02/2019 Encounter Details Date Type Department Care Team (Late st Contact Info) Description 10/02/2019 Telephone [facility] Cardiology - [place] [address] Alex Mcdaniel MD Appointment Related Social History Tobacco Use Types [...] encounter Miscellaneous Notes * Telephone Encounter - Rosetta Garcia - 10/02/2019 0921 EDT EP calling to inform they need to cancel today's admission. States not performing the specific service. Juvenile Detention Officer discussed pre-cert associate, will follow up. documented in this encounter Plan of Treatment Not on file documented as of this encounter Visit Diagnoses Not on filedocumented in this encounter Care Teams Classification Control Clerk Relationship Specialty Start Date End Date Clayton Reid MD [address] [phone] PCP - General 10/02/19 documented as of this encounter
--- OUTSIDE RECORDS SUMMARY | 2023-12-15 11:03 | XMS_ITS | Encounter Summary ---
Author Organization [facility] Address [address] [place] [address] Care Team Providers Care Monitoring Tech Name Role Phone Unknown, Provider Primary Care Provider Reason for Visit * Reason Onset Date Comments Dizziness 09/27/2019 Encounter Details Date Type Department Care Team (Late st Contact Info) Description 09/27/2019 Telephone [facility] Cardiology - [address] [place], [place] [phone] Vick Romero MD [address] [place] [address] Dizziness Social History Tobacco Use Types Packs/Day Years [...] encounter Miscellaneous Notes * Telephone Encounter - Vick Romero MD - 09/27/2019 4184 EDT Abnormal EKG patient message from [facility] Episodes of high HR 185 with afib + felt dizziness New number per their staff Home [phone] I was thankfully able to reach the pt today; Reports some new self-limited dizziness while building a fence today No passing out. No chest pain. Pt currently free of symptoms Currently taking metoprolol 100mg and ASA 81 Pt states he has a fu appt on in Dr. Mclaughlin office It appears this has been ongoing atleast since 09/21 but no one has been able to reach him As no pharmacies are open at this time and this has been ongoing for nearly a week now, I asked pt to call his cardiology office in the AM to discuss symptoms/med rx as well as update contact info I reviewed signs/symptoms to seek sooner eval at local ED (I think its reasonable to hold off as ptasx and given the duration of symptoms) Vick Romero MD Medical Imaging Technician, PGY-4 Pager [phone] documented in this encounter Plan of Treatment Not on file documented as of this encounter Visit Diagnoses Not on filedocumented in this encounter Care Teams Monitoring Tech Relationship Specialty Start Date End Date Unknown, Provider, PCP - General 01/26/16 10/01/19 documented as of this encounter
--- OUTSIDE RECORDS SUMMARY | 2023-12-15 11:03 | XMS_ITS | Encounter Summary ---
Author Organization [facility] Address [address] [place] [address] Care Team Providers Care Irrigation Laborer Name Role Phone Unavailable Primary Care Provider Unavailabl e Encounter Details Date Type Department Care Team (Latest Contact Info) Description 11/06/2007 21:37 EDT Hospital Encounter [facility] - Other [address] [place] [address] Jeni Alva MD [address] [place] [address] Discharge Disposition: Home or Self Care Social History Tobacco Use Types Packs/Day Years Used Date Smoking Tobacco: Never Assessed Sex and Gender Information Value Date Recorded Sex Assigned at Not on file Gender Identity Not on file Sexual Orientation Not on file documented as of this encounter Discharge Disposition Disposition Code Departure Means Destination Home or Self Care documented in this encounter Plan of Treatment Not on file documented as of this encounter Visit Diagnoses Not on filedocumented in this encounter
--- OUTSIDE RECORDS SUMMARY | 2023-12-15 11:03 | XMS_ITS | Encounter Summary ---
Author Organization [facility] Address [address] [place] [address] Care Team Providers Care Berry Grower Name Role Phone Unavailable Primary Care Provider Unavailabl e Encounter Details Date Type Department Care Team (Late st Contact Info) Description 11/06/2007 Results Only [facility] [address] [place] [address] Jeni Alva MD [address] [place] [id number] Social History Tobacco Use Types Packs/Day Years Used Date Smoking Tobacco: Never Assessed Sex and Gender Information Value Date Recorded Sex Assigned at Not on file Gender Identity Not on file Sexual Orientation Not on file documented as of this encounter Plan of Treatment Not on file documented as of this encounter Procedures Procedure Name Priority Date/Time Associated Diagnosis Comments TSH Routine 11/06/2007 15:30 EDT documented in this encounter Results * TSH (11/06/2007 15:30 EDT) TSH 2.50 0.35 - 5.00 uIU/mL [facility] 11/06/2007 15:3 0 EDT 11/06/2007 21:59 EDT Jeni Alva MD CHEMISTRY & BLOOD GA S ORDERABLES [facility] [address] [place] [address] documented in this encounter Visit Diagnoses Not on filedocumented in this encounter
--- OUTSIDE RECORDS SUMMARY | 2023-12-15 11:03 | XMS_ITS | Encounter Summary ---
Author Organization [facility] Address [address] [place] [address] Care Team Providers Care Trouble Operator Name Role Phone Unknown, Provider Primary Care Provider [phone] Reason for Visit * Reason Onset Date Comments Prior Auth, Other (i.e. radiology, etc.) 020 Encounter Details Date Type Department Care Team (Late st Contact Info) Description 10/01/[address] [facility] Cardiology - [address] [place] [address] Michelle Wells NP [address] [facility] [address] [place] [address] Prior Auth, Other (i.e. radiology, etc.) Social History Tobacco Use Types Packs/Day Years [...] encounter Miscellaneous Notes * Telephone Encounter - Rosina Jenkins - 10/01/2019 1617 EDT PT has CBA Blue and is approved under Auth# [id number] from 10/02/19-10/05/19 for Elective IP Bed Admitto start Dofetilide 10/02/19. PPS emailed and PT added to to EP Calendar documented in this encounter Plan of Treatment Not on file documented as of this encounter Visit Diagnoses Not on filedocumented in this encounter Care Teams Trouble Operator Relationship Specialty Start Date End Date Unknown, Provider, PCP - General 01/26/16 10/01/19 documented as of this encounter
--- OUTSIDE RECORDS SUMMARY | 2023-12-15 11:03 | XMS_ITS | Encounter Summary ---
Author Organization [facility] Address [address] [place] [address] Care Team Providers Care Department Head [employer] Name Role Phone Unknown, Provider Primary Care Provider Reason for Visit * Reason Onset Date Comments Coordination Of Care 09/27/2019 Encounter Details Date Type Department Care Team (Late st Contact Info) Description 09/27/2019 Telephone [facility] Cardiology - [place] [address] Scott Estrella MD [address] [facility], [address] [place] [phone] Coordination Of Care Social History Tobacco Use Types Packs/Day [...] encounter Miscellaneous Notes * Telephone Encounter - Scott Estrella MD - 09/27/2019 1215 EDT Telephone encounter I received an urgent called by [facility] for an abnormal EKG. Afib with RVR. This is known. I did not call the patient. We will relay this message to his primary ground transportation operator Dr. Mcdaniel. Scott Estrella MD, Performance Improvement Director, PGY-5, Pager #[phone], 20:41 09/27/19 . documented in this encounter Plan of Treatment Not on file documented as of this encounter Visit Diagnoses Not on filedocumented in this encounter Care Teams Department Head [employer] Relationship Specialty Start Date End Date Unknown, Provider, PCP - General 01/26/16 10/01/19 documented as of this encounter
--- OUTSIDE RECORDS SUMMARY | 2023-12-15 11:03 | XMS_ITS | Encounter Summary ---
Author Organization [facility] Address [address] [place] [address] Care Team Providers Care Tax Evaluator Name Role Phone Unknown, Provider Primary Care Provider Reason for Visit * Reason Onset Date Comments Other 09/26/2016 CPT-code Advice Only 10/04/2016 Encounter Details Date Type Department Care Team (Late st Contact Info) Description 09/26/2016 Telephone [facility] Urology - [address] [address] Robb Mccloud MD [address] [facility], [address] [place] [address] Other (CPT-code); Advice Only Social History Tobacco Use Types Packs/Day Years [...] encounter Miscellaneous Notes * Telephone Encounter - Joellen King - 10/08/2016 1328 EDT Called patient's back, Will mail the global fee contract out to them for vasectomy reversal, they will come in with deposit for $100.00 on 11/06/16. * Telephone Encounter - Angeles Khan - 10/08/2016 1309 EDT Patient is giving Az[facility] a call back. * Telephone Encounter - Joellen King - 10/08/2016 1119 EDT Called Crystal back, [place] Medicaid doesn't cover vasectomy reversals. I discuss the Global Fee Contract and cost. She will discuss with her and get back to me. They would like this in December. * Telephone Encounter - Angeles Khan - 10/08/2016 1041 EDT Patient spouse is calling to get this scheduled * Telephone Encounter - Robb Mccloud MD - 10/04/2016 1728 EDT I spoke with Omid's today about logistics of vasectomy reversal, recovery period and expected success rates. She would like a call after 9 AM on to discuss scheduling. * Telephone Encounter - Padmini Elizabeth RN - 10/04/2016 1523 EDT Attempt to call the patient's with no answer. * Telephone Encounter - Deandra Bernstein - 10/04/2016 1506 EDT Pt's called as she has a questions for Dr. Mccloud. * Telephone Encounter - Joellen King - 09/26/2016 1446 EDT Called the patient [place]/ [place] [address], left message. * Telephone Encounter - Lilian Lang - 09/26/2016 1358 EDT Reason for Call: Other (CPT-code) Summary/Symptoms: Patient needs the CPT-Code for a vasectomy reversible. Lilian Lang 09/26/2016 13:58 documented in this encounter Plan of Treatment Not on file documented as of this encounter Visit Diagnoses Not on filedocumented in this encounter Care Teams Tax Evaluator Relationship Specialty Start Date End Date Unknown, Provider, PCP - General 01/26/16 10/01/19 documented as of this encounter
--- OUTSIDE RECORDS SUMMARY | 2023-12-15 11:03 | XMS_ITS | Encounter Summary ---
Author Organization [facility] Address [address] [place] [address] Care Team Providers Care Tree Faller Name Role Phone Unknown, Provider Primary Care Provider [phone] Clayton Reid MD Primary Care Provider [phone] Reason for Visit * Reason Onset Date Comments Medication Management 10/01/2019 Tikos Encounter Details Date Type Department Care Team (Late st Contact Info) Description 10/01/2019 Telephone [place] Cardiology - [address] [phone] Michelle Wells NP [address] [facility] [address] [place] [address] Medication Management (Tikos) Social History Tobacco Use Types Packs/Day Years [...] encounter Miscellaneous Notes * Telephone Encounter - Ivette Burnett RN - 10/01/2019 1724 EDT I have tried to reach the and the pt numerous times. Got thru X 1 to the and the lee ofthe dofetilide will be $5 a month. She is aware and it looks like the will not know until he gets home because his phone is not working. I left messsage on home phone that pt is on for tomorrow and left my number if she/he has questions, Also in the message stated he should be ready togo between 1-5 Sat afternoon because he is on the schedule. * Telephone Encounter - Dante Glaser - 10/01/2019 1605 EDT Patient calling to check on the status regarding his Dofeltilide. Patient did contact insurance andit will only cost him 5$ a month! Please call to discuss He was told he would hear back over and hour ago. He would like to hear back soon. He will be out of service for 30 minutes documented in this encounter Plan of Treatment Not on file documented as of this encounter Visit Diagnoses Not on filedocumented in this encounter Care Teams Tree Faller Relationship Specialty Start Date End Date Unknown, Provider, PCP - General 01/26/16 10/01/19 Clayton Reid MD [address] [phone] PCP - General 10/02/19 documented as of this encounter
--- OUTSIDE RECORDS SUMMARY | 2023-12-15 11:03 | XMS_ITS | Encounter Summary ---
Author Organization [facility] Address [address] [place] [address] Care Team Providers Care Asphalt Blender Name Role Phone Unknown, Provider Primary Care Provider [phone] Clayton Reid MD Primary Care Provider [phone] Encounter Details Date Type Department Care Team (Late st Contact Info) Description 08/25/2019 Lab Requisition [facility] Pathology & Laboratory Medicine - [address] [address] Unknown, Provider, Social History Tobacco Use Types [...] Procedure Name Priority Date/Time Associated Diagnosis Comments HIV 1/2 ANTIGEN AND ANTIBODY, 4TH GENERATION Routine 08/24/2019 16:37 EDT documented in this encounter Results * HIV 1/2 ANTIGEN AND ANTIBODY, 4TH GENERATION (08/24/2019 16:37 EDT) HIV 1 and 2 Antibody/p24 Antigen, 4th Generation Negative Negative 08/26/2019 11:31 EDT [facility] Comment: If acute HIV-1 infection is suspected in a high risk ??patient, submit plasma specimen for HIV-1 RNA quantitation test. Fourth Generation assay performed on the Siemens Centaur. Blood VENOUS BLOOD / Unknown 08/24/2019 16:37 EDT 08/25/2019 21:00 EDT Provider Unknown IMMUNOLOGY AND SEROL KAITLYN ORDERABLES Performing Organization Address City/State/RUST Co de Phone Number [facility] [address] [place] [address] documented in this encounter Visit Diagnoses Not on filedocumented in this encounter Care Teams Asphalt Blender Relationship Specialty Start Date End Date Unknown, Provider, PCP - General 01/26/16 10/01/19 Clayton Reid MD [address] [phone] PCP - General 10/02/19 documented as of this encounter
--- OUTSIDE RECORDS SUMMARY | 2023-12-15 11:03 | XMS_ITS | Encounter Summary ---
Author Organization [facility] Address [address] [place] [address] Care Team Providers Care Belt Cleaner Name Role Phone Unknown, Provider Primary Care Provider [phone] Reason for Visit * Reason Onset Date Comments Medication Management 10/01/2019 Encounter Details Date Type Department Care Team (Late st Contact Info) Description 10/01/2019 Telephone [facility] Cardiology - [address] [address] Michelle Wells, PATRICIA [address] [facility] [address] [place] [address] Medication Management Social History Tobacco Use Types Packs/Day Years [...] encounter Miscellaneous Notes * Telephone Encounter - Michelle Wells APRN - 10/01/2019 3149 EDT Omid Miller is a 44 y.o. male contacted at [phone] for co pay on Dofetilide. I left a message and will check back and document. Thank you for allowing me to participate in his care. Michelle Wells APRN 10/01/2019 14:11 documented in this encounter Plan of Treatment Not on file documented as of this encounter Visit Diagnoses Not on filedocumented in this encounter Care Teams Belt Cleaner Relationship Specialty Start Date End Date Unknown, Provider, PCP - General 01/26/16 10/01/19 documented as of this encounter
--- OUTSIDE RECORDS SUMMARY | 2023-12-15 11:03 | XMS_ITS | Encounter Summary ---
Author Organization [facility] Address [address] [place] [address] Care Team Providers Care Textile Cutting Machine Operator Name Role Phone Unknown, Provider Primary Care Provider Reason for Visit * Reason Onset Date Comments Tachycardia 09/26/2019 Encounter Details Date Type Department Care Team (Late st Contact Info) Description 09/26/2019 Telephone [facility] CARDIOLOGY [address] [place], [place] [phone] Jono Gentile MD Tachycardia Social History Tobacco Use Types Packs/Day Years [...] encounter Miscellaneous Notes * Telephone Encounter - Jono Gentile MD - 09/26/2019 1440 EDT Alerted by [employer] that patient HR 190s for brief minutes this afternoon around 1:00pm. Attemptto call patient unsuccessful in number in records. Previous noted suggests this is a known issues. Jono Gentile MD PGY-4 Cardiology p. [phone] documented in this encounter Plan of Treatment Not on file documented as of this encounter Visit Diagnoses Not on filedocumented in this encounter Care Teams Textile Cutting Machine Operator Relationship Specialty Start Date End Date Unknown, Provider, PCP - General 01/26/16 10/01/19 documented as of this encounter
--- OUTSIDE RECORDS SUMMARY | 2023-12-15 11:03 | XMS_ITS | Encounter Summary ---
Author Organization [facility] Address [address] [place] [address] Care Team Providers Care Timber Treating Tank Operator Name Role Phone Unknown, Provider Primary Care Provider [phone] Clayton Reid MD Primary Care Provider [phone] Encounter Details Date Type Department Care Team (Late st Contact Info) Description 08/25/2019 Lab Requisition [facility] Pathology & Laboratory Medicine - [address] [address] Unknown, Provider, Social History Tobacco Use Types [...] Procedure Name Priority Date/Time Associated Diagnosis Comments TESTOSTERONE Routine 08/24/2019 16:37 EDT documented in this encounter Results * (ABNORMAL) TESTOSTERONE (08/24/2019 16:37 EDT) Testosterone 164(L) 229 - 902 ng/dL 08/26/2019 10:10 EDT [facility] Blood VENOUS BLOOD / Unknown 08/24/2019 16:37 EDT 08/25/2019 21:00 EDT Narrative [facility] - 08/26/2019 10:10 EDT The results of this assay can be falsley elevated due to the consumption of Biotin. Provider Unknown CHEMISTRY & BLOOD GA S ORDERABLES [facility] [address] [place] [address] documented in this encounter Visit Diagnoses Not on filedocumented in this encounter Care Teams Timber Treating Tank Operator Relationship Specialty Start Date End Date Unknown, Provider, PCP - General 01/26/16 10/01/19 Clayton Reid MD [address] [id number] PCP - General 10/02/19 documented as of this encounter
--- OUTSIDE RECORDS SUMMARY | 2023-12-15 11:03 | XMS_ITS | Encounter Summary ---
Author Organization [facility] Address [address] [place] [address] Care Team Providers Care Baker Second Name Role Phone Unknown, Provider Primary Care Provider [phone] Reason for Visit * Reason Onset Date Comments Coordination Of Care 10/01/2019 Encounter Details Date Type Department Care Team (Late st Contact Info) Description 10/01/2019 Telephone [facility] Cardiology - [address] [address] Michelle Wells NP [address] [facility] [address] [place] [address] Coordination Of Care Social History Tobacco Use [...] Encounter - Ivette Burnett RN - 10/01/2019 1200 EDT No messages were seen for Michelle Wells MACHINE STACKER plans with this Pt.or Dr Mcdaniel. Dr Mcdaniel will call Michelle Wells directly. * Telephone Encounter - Rajwinder Kay - 10/01/2019 [address] Mcdaniel's office at [facility] following up for patient. Patient was told there would be a 72 hour medicine study of some sort to help with his condition and he needs to know when to get time off from work. States he needs this information by tomorrow. Please call back to advise and/or clarify. documented in this encounter Plan of Treatment Not on file documented as of this encounter Visit Diagnoses Not on filedocumented in this encounter Care Teams Baker Second Relationship Specialty Start Date End Date Unknown, Provider, PCP - General 01/26/16 10/01/19 documented as of this encounter
--- OUTSIDE RECORDS SUMMARY | 2023-12-15 11:03 | XMS_ITS | Encounter Summary ---
Author Organization [facility] Address [address] [place] [address] Care Team Providers Care Domestic Violence Advocate Name Role Phone Unknown, Provider Primary Care Provider Reason for Visit * Reason Onset Date Comments Paperwork request 10/29/2016 Encounter Details Date Type Department Care Team (Late st Contact Info) Description 10/29/2016 Telephone [facility] Urology - [address] [id number] Robb Mccloud MD [address] [facility], [address] [place] [phone] Paperwork request Social History Tobacco Use Types Packs/Day Years [...] * Telephone Encounter - Joellen King - 10/29/2016 1521 EDT Called Karissa back to let her know I resent the paperwork, no answer, no voicemail. * Telephone Encounter - Joellen King - 10/29/2016 1518 EDT Re-sent [employer] Contract for Vasectomy Reversal. * Telephone Encounter - Karen Marquez - 10/29/2016 1333 EDT Pt calling as she did receive the paperwork /contract from [employer] but they have misplaced this, can it be re-sent to them? documented in this encounter Plan of Treatment Not on file documented as of this encounter Visit Diagnoses Not on filedocumented in this encounter Care Teams Domestic Violence Advocate Relationship Specialty Start Date End Date Unknown, Provider, PCP - General 01/26/16 10/01/19 documented as of this encounter
--- OUTSIDE RECORDS SUMMARY | 2023-12-15 11:03 | XMS_ITS | Encounter Summary ---
Author Organization [facility] Address [address] [place] [address] Care Team Providers Care Care Analyst Name Role Phone Unknown, Provider Primary Care Provider Reason for Visit * Reason Comments New Patient Visit discuss vas reversal Encounter Details Date Type Department Care Team (Late st Contact Info) Description 01/31/2016 11:30 EDT Office Visit [facility] Urology - [address] [phone] Robb Mccloud MD [address] [facility], [address] [place] [address] S/P vasectomy (Primary Dx) Social History Tobacco [...] as of this encounter Progress Notes * Robb Mccloud MD - 01/31/2016 1142 EDT Chief Complaint: Chief Complaint Patient presents with ??? New Patient Visit discuss vas reversal HPI: Omid is a 40 y.o. male with three children aged 4 through 13. He denies any history fertility problems. He is to Karissa, mother of his three children, who is 38 with regular cycles. He had a vasectomy in 2011. He denies problems with erections or libido. Patient Active Problem List Diagnosis ??? S/P vasectomy PMH PSH Past Medical History Diagnosis Date ??? A-fib Past Surgical History Procedure Laterality Date ??? Wrist surgery ??? Vasectomy Social History Family History Social History Substance Use Topics ??? Smoking status: Never Smoker ??? Smokeless tobacco: Never Used ??? Alcohol use Yes Comment: occasional Family History Problem Relation Age of Onset ??? Prostate Cancer Neg Hx Medications Current Outpatient Prescriptions: ??? 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 Review of Systems: Negative for fevers, chills, chest pain, shortness of breath, nausea, joint pain, muscle pain, dysuria, numbness, change in vision, endocrine problems or skin rashes. Objective/Physical Exam: Vital Signs: There were no vitals taken for this visit. Exam: Constitutional: Alert, in no distress. Lymph: Neck supple without lymphadenopathy Respiratory: Respirations unlabored. Cardiovascular: Pulse regular. Gastrointestinal: Abdomen soft, non tender. Renal: No CVA tenderness. Genital: Uncircumcised phallus with patent meatus at the tip, no plaques. Testes descended bilaterally without masses. Musculoskeletal: Extremities warm without edema. Skin: Skin warm and dry. Impression: 40 y.o. year old man s/p vasectomy who desires fertility. We discussed options including adoption, donor insemination, vasectomy reversal and/or surgical sperm retrieval with IVF/ICSI. Wediscussed the rate after vasectomy reversal and the effect of antisperm antibodies that usually develop after vasectomy. We discussed risks of the procedure including scrotal hematoma, infection, failure to return sperm to the ejaculate and the outcomes expected with either vasovasostomy or vasoepididymostomy. I suggested that his partner seek at least a preliminary evaluation for fertility potential with a marketing mgr prior to considering these options. Suggestions/Recommendations: He may contact me at any time to schedule a procedure. Thank you for consulting us in the care of Omid Miller. We will, of course, continue to keep you informed of the patient's urological care and the results of our further evaluation. Robb Mccloud MD documented in this encounter Plan of Treatment Not on file documented as of this encounter Visit Diagnoses Diagnosis S/P vasectomy- Primary Vasectomy status documented in this encounter Historical Medications * This list may reflect changes made after this encounter. Medication Sig Dispensed Refills Start Date End Date aspirin chewable 81 mg tablet Take 81 mg by mouth daily. 10/02/2019 added in this encounter Care Teams Care Analyst Relationship Specialty Start Date End Date Unknown, Provider, PCP - General 01/26/16 10/01/19 documented as of this encounter
--- OUTSIDE RECORDS SUMMARY | 2023-12-15 11:03 | XMS_ITS | Encounter Summary ---
Author Organization [facility] Address [address] [place] [address] Care Team Providers Care Metal Bending Machine Operator Name Role Phone Unknown, Provider Primary Care Provider Reason for Visit * Reason Onset Date Comments Prior Auth, Other (i.e. radiology, etc.) 020 Encounter Details Date Type Department Care Team (Late st Contact Info) Description 10/01/2019 Telephone [facility] Cardiology - [address] [place] [address] Michelle Wells NP [address] [facility] [address] [place] [address] Prior Auth, Other (i.e. radiology, [...] Telephone Encounter - Rosina Jenkins - 10/01/2019 1245 EDT Pending review of [employer] IP Admit codes [id number] for 10/02/19 by BETY BYRD fax # [phone] for documented in this encounter Plan of Treatment Not on file documented as of this encounter Visit Diagnoses Not on filedocumented in this encounter Care Teams Metal Bending Machine Operator Relationship Specialty Start Date End Date Unknown, Provider, PCP - General 01/26/16 10/01/19 documented as of this encounter
--- OUTSIDE RECORDS SUMMARY | 2023-12-15 11:03 | XMS_ITS | Encounter Summary ---
Author Organization [facility] Address [address] [place] [address] Care Team Providers Care Lighter Captain Name Role Phone Clayton Reid MD Primary Care Provider [phone] Reason for Visit * Auth/Cert Specialty Diagnoses / Procedures Referred By Contac t Referred To Contact Diagnoses A-fib ([facility]) Afib/Tikosyn Referral ID Status Reason Start Date Expiration Date Visits Re quested Visits Authorized [id number] 1 1 Encounter Details Date Type Department Care Team (Late st Contact Info) Description 10/05/2019 11:00 EDT - 10/05/2019 15:30 EDT Surgery [place] [address] EP Lab [address], [place] [address] Wilmar Martínez MD [address] [facility] [address] [place] [id number] Ablation A-Fib [22638 (CPT??)] Surgery Details Date/Time Status Location OR Service Patient Class Case Class Case Type Trauma Case? 10/05/19 1100 Posted [facility] EP Lab EP Lab 1 Cardiovascular Inpatient H - Elective Panel 1 Procedure LRB Anes Op Region Wound Class Comments Ablation A-Fib N/A General Chest Surgeon Surgeon Role Service Panel Wilmar Martínez MD Primary Cardiovascular 1 documented in this encounter Social History Tobacco [...] Sign Reading Time Taken Comments Blood Pressure 143/79 10/05/2019722 EDT Pulse - - Temperature 36 ??C (96.8 ??F) 10/05/2019 07 EDT Respiratory Rate 17 10/04/20192050 EDT Oxygen Saturation 96% 10/05/2019722 EDT Inhaled Oxygen Concentration - - Weight 129.3 kg (285 lb) 10/02/20191840 EDT Height 185.4 cm (6' 1) 10/02/2019 184 EDT Body Mass Index 37.6 10/02/20191840 EDT documented in this encounter Functional Status [...] of this encounter Discharge Summaries * Lisa Montilla APRN - 10/05/2019 1148 EDT Cardiology Discharge Summary Primary Care Provider: Clayton Reid Attending Physician: Tim Marks MD Admit Date: 10/02/2019 Discharge Date: 10/06/19 Disposition: Home or self care Problems and Procedures Admitting Diagnosis: No primary diagnosis found. Final Hospital Diagnosis: PAF Additional Problems Managed in the Hospital Active Hospital Problems Diagnosis Date Noted ??? *AF (atrial fibrillation) ([facility]) 10/02/2019 Added automatically from request for surgery [id number] ??? A-fib ([facility]) 10/02/2019 Resolved Hospital Problems No resolved problems to display. Principal Procedure: PVE/PVI Date: 10/05/19 Secondary Procedures: Not applicable Hospital Course HPI from Dr. Gentile H&P: Valery Miller, is a 44 y/o male with PMH of HTN, HDL, obesity and untreated FABIO, he could not tolerate the CPAP and PAF. Afib was first diagnosed in 2007, at that time he underwent DCCV at [facility]. ECHO showed a normal EF and a mildly dilated LA. He did well until the??end of August where he began to complain of episodes of dizziness, SOB and palpitations. He followed up with Dr. Mcdaniel who noted Afib and started him on Metoprolol XL 100 mg and Xarelto 20 mg daily. His [id number] score is 1 for HTN. A follow [...] been arranged with Julia Wells NP at [facility] in 2 weeks for a post procedure [...] follow up with the Nurse Practitioner at [facility] in 2 weeks for a post procedure check (this will likely be a video visit). Follow up with Dr. Martínez in 3 months at [facility] in [facility]. You will be notified with the appointments. If you have any questions or concerns, please don't hesitate to call the Cardiac Arrhythmia Service[place] [phone] (or dial direct-[phone]) documented in this encounter Medications at Time [...] Code Departure Means Destination Home or Self Mcc documented in this encounter Progress Notes * Krysten Dign RN - 10/06/2019 1350 EDT CM Discharge Note Discharge Date: 10/05 Destination: home Transportation: family Home Health: NA DME: Na Prescriptions: escribed to [facility] for [id number] Krysten Ding RN [id number] * Lisa Montilla APRN - 10/05/2019 1156 [...] Reviewed: No significant findings. CBC: Recent Labs 10/02/19 1822 WBC 9.36 HGB [...] the last 72 hours. LFTs: Recent Labs 10/02/19 1822 ALT 25 AST 27 ALKPHOS 53 Cardiac [...] Home tomorrow 2 week follow up with COMMUNITY DEVELOPMENT COORDINATOR at [facility] 3 month follow up with Dr. [...] Type of housing (single family, condo, apartment, intermediate, single room occupancy, [facility] funded hotel room, group halfway) - Double Wide Trailer Who does the patient live with? Spouse and children Does the patient have access to their own bedroom/bathroom/kitchen - or is it shared with others? Home spaces are shared with family. Name of housing complex (ex [facility], [facility], etc)- Not applicable Housing Authority/Managing Organization - Not applicable. Community Care Providers (family service caseworker, [facility] nurse, etc) name and contact information- Not Applicable LIVING ARRANGEMENTS AND ACCESSIBILITY ISSUES: Living Arrangements: Spouse / significant other, Children, Private residence(patient lives with family in a double wide trailer.) Levels: 1 Stairs to enter: 3 Handicap access: None Bathroom located on bedroom level?: Yes What in home social supports are available to the patient? Spouse / significant other, Family member(s) Is 17/12 care available? Yes ADVANCED DIRECTIVES, POA &/or COLST IN PLACE: Healthcare Directive: No, patient does not have advance directive for healthcare treatment Information Provided on Healthcare Directives: No Information on Healthcare Directives Requested: No Patient Requests Assistance: No DIRECTIVES FOR FINANCES: Directive For Finances: No TRANSPORTATION: Transportation: Self, Family CULTURAL, BAHAI and/or LANGUAGE factors affecting health care/discharge planning: Spiritual/Cultural Requests: None Any factors affecting health care/discharge planning?: No Insurance in Place: Yes Medical Insurance: Yes Type of insurance: Commercial insurance Commercial coverage: [employer] Referred to patient financial services: No Nutrition: Cardiac diet DISCHARGE RISK ASSESSMENT: None of the above risks identified Total # selected above: Score: Zero Tentative plan to address the risk of re-hospitalization for those at HIGH MODERATE RISK: RAPT TOOL: Age: (44 years old) Gender: Male Ambulation distance: 2 or more blocks (600ft) Gait device: None Community Services: Home health, [facility], [facility]-none of one time a week Will you [...] to provide care coordination. JENN STODDARD RN 10/04/2019 15:12 * Clayton Cheney MD - [...] load Plan: AF: dofetilide laod - continue SALES AND SERVICE ASSOCIATE Xarelto 20mg - Dilt 120mg HS; change from metoprolol - dofetilide 125 mcg, decreased due to QT - last dose Saturday morning - daily lytes and creatinine. Patient seen and discussed with Dr. Shravan Mcbride MD Hat Blocking Machine Operator PGY-5 10/04/2019 7:55 Attestation Statement: I have [...] at that time he underwent DCCV at [facility]. ECHO showed a normal EF and a mildly dilated LA. He did well until the end of August where he began to complain of episodes of dizziness, SOB and palpitations. He followed up with Dr. Mcdaniel who noted Afib and started him on Metoprolol XL 100 mg and Xarelto 20 mg daily. His [id number] score is 1 for HTN. A follow [...] day supply. Prior Cardiac History: noted in [facility] PMH PSH Past Medical History: Diagnosis Date [...] to be approved by EP fellow or tie loader construction lineman - Dose adjustments will be made following [...] Notes * Wilmar Martínez MD - 10/05/2019 4258 EDT Af ablation Normal EP study [id number] Ah 70, hv 40 Raa1:1 to 340 [...] Care - Ya Ding RN - 10/06/2019 0456 EDT D: Patient discharged home per MD; bilateral groin sites CD &I; pt. received meds from [facility] pharmacy; A: IV removed, catheter tip intact. Telemetry removed. RN reviewed discharge instructions and medications with patient; Patient received medication sheets and discharge instructions. R: Patient expressed good understanding of discharge instructions. He has no questions at this time. Patient dressed independently. He left via wheelchair for ride to [facility] lobby; in no acute distress; to drive [...] sinus deacon with sleep. Pt HTN to [id number]/100s, other VSS on RA. Pt denies pain [...] Care - Keith Bullard RN - 10/02/2019 7585 EDT Problem: Daily Care Plan Goals Goal: [...] 10/05/2019 16:1 0 EDT AF (atrial fibrillation) ([facility]) POCT ACTIVATED CLOTTING TIME, KAOLIN ISTAT Routine [...] 9:31 EDT) 10/28/2019 9:31 EDT Scan 2 Retirement Specialist PROCEDURE/MINOR BRAD GICAL ORDERABLES * ECG REPORT - SCANNED (10/16/2019 13:59 EDT) 10/16/2019 13:5 9 EDT Scan 2 Retirement Specialist PROCEDURE/MINOR BRAD GICAL ORDERABLES * ECG REPORT - SCANNED (10/15/2019 14:39 EDT) 10/15/2019 14:3 9 EDT Scan 2 Retirement Specialist PROCEDURE/MINOR BRAD GICAL ORDERABLES * ECG REPORT - SCANNED (10/15/2019 14:36 EDT) 10/15/2019 14:3 6 EDT Scan 2 Retirement Specialist PROCEDURE/MINOR BRAD GICAL ORDERABLES * ECG REPORT - SCANNED (10/15/2019 12:30 EDT) 10/15/2019 12:3 0 EDT Scan 2 Retirement Specialist PROCEDURE/MINOR BRAD GICAL ORDERABLES * ECG REPORT - SCANNED (10/09/2019 7:16 EDT) 10/09/2019 7:16 EDT Scan 2 Retirement Specialist PROCEDURE/MINOR BRAD GICAL ORDERABLES * ECG REPORT - SCANNED (10/09/2019 7:16 EDT) 10/09/2019 7:16 EDT Scan 2 Retirement Specialist PROCEDURE/MINOR BRAD GICAL ORDERABLES * ECG REPORT - SCANNED (10/07/2019 16:16 EDT) 10/07/2019 16:1 6 EDT Scan 2 Retirement Specialist PROCEDURE/MINOR BRAD GICAL ORDERABLES * ECG REPORT - SCANNED (10/06/2019 13:48 EDT) 10/06/2019 13:4 8 EDT Scan 2 Retirement Specialist PROCEDURE/MINOR BRAD GICAL ORDERABLES * MAGNESIUM (10/06/2019 5:30 EDT) Magnesium 2.0 1.7 - 2.8 mg/dL 10/06/2019 6:29 EDT [facility] Blood VENOUS BLOOD / Unknown Venipuncture / Unknown 10/06/2019 5:30 EDT 10/06/2019 6:01 EDT Lisa Montilla NP CHEMISTRY & B LOOD GAS ORDERABLES Performing Organization Address [facility] de Phone Number [facility] [address] [place] [address] * ELECTROLYTES (10/06/2019 5:30 EDT) Sodium 136 136 - 145 mEq/L 10/06/2019 6:29 EDT [facility] Potassium 4.4 3.5 - 5.0 mEq/L 10/06/2019 6:29 EDT [facility] Chloride 103 96 - 110 mEq/L 10/06/2019 6:29 EDT [facility] CO2 Total 24 22 - 32 mEq/L 10/06/2019 6:29 EDT [facility] Blood VENOUS BLOOD / Unknown Venipuncture / Unknown 10/06/2019 5:30 EDT 10/06/2019 6:01 EDT Lisa Montilla NP CHEMISTRY & B LOOD GAS ORDERABLES Performing Organization Address [facility] Co de Phone Number [facility] [address] [place] [address] * CREATININE (10/06/2019 5:30 EDT) Creatinine 0.86 0.66 - 1.25 mg/dL 10/06/2019 6:29 EDT [facility] eGFR 106 >60 mL/min/1.7 3m2 10/06/2019 6:29 EDT [facility] Comment:eGFR calculated jalny funes CKD-EPI equation for non- Americans. Multiply eGFR by 1.16 for patients. Blood VENOUS BLOOD / Unknown Venipuncture / Unknown 10/06/2019 5:30 EDT 10/06/2019 6:01 EDT Lisa Montilla NP CHEMISTRY & B LOOD GAS ORDERABLES [facility] [address] [place] [address] * EKG 12-LEAD (10/05/2019 18:43 EDT) 10/05/2019 18:4 3 EDT Narrative [facility] EKG - 10/06/2019 13:40 EDT ? The ? Test Date: ?2019-10-05 Pat Name: ? VALERY MILLER ?Department: ?? [place] ? Room: ? [id number] Gender: ? Male ? [place] Electronic: ?? [id number] : ?1975 ? Requested By: WILMAR MARTÍNEZ MD Order Number: [id number] ? Hernando JACOBO: ?? HOPE LOUIS MD ? Measurements Intervals ?[place] ? Rate: ? 59 ? P: ?39 NC: ? 160 ?QRS: ?49 QRSD: ? 111 [...] Note Hope Louis MD - 10/06/2019 The Test Date: 2019-10-05 Pat Name: VALERY MILLER Department: [place] [address] Room: [facility] Gender: Male [place] Electronic: [id number] : 1975 Requested By: WILMAR MARTÍNEZ MD Order Number: [id number] Reading MD: HOPE LOUIS MD Measurements Intervals [place] Rate: 59 P: 39 NC: 160 QRS: 49 QRSD: 111 T: 33 [...] KIDD. Wilmar Martínez MD CARDIAC ECG ORDE ELÍAS [facility] EKG * ABLATION A-FIB (10/05/2019 16:10 EDT) Anatomical Region Laterality Modality Cardiac Electrop hysiology 10/05/2019 11:0 0 EDT Narrative 10/05/2019 16:09 EDT *Cardiology* [address] [place] [address] Electrophysiology Study with Ablation Patient: Valery Miller ? Study Date: ? 10/05/2019 ? Accession #: ?[id number] : ? 1975 Referring: Alex Mcdaniel Attending: Wilmar Martínez MD Fellow: Assisting: Walker Roblero RN Copies: ATTESTATION: I, Dr. Wilmar Martínez performed the entire procedure [...] 74 - 137 sec 10/05/2019 15:22 EDT [facility] ophthalmic technologist ID [id number] 10/05/2019 15:22 EDT [facility] HN LAB POC COMMENT (ACT) Test performed by Cardiology. Therapeutic interventaional range is dependent upon patient population and procedure type 10/05/2019 15:22 T [facility] Blood ARTERIAL BLOOD / Unknown 10/05/2019 15:15 EDT 10/05/2019 15:22 EDT Tim Marks MD POINT OF CARE [place] ORDERABLES [facility] [address] [place] [address] * (ABNORMAL) POCT ACTIVATED CLOTTING TIME, KAOLIN ISTAT (10/05/2019 14:35 EDT) iSTAT Activated Clotting Time 252(H) 74 - 137 sec 10/05/2019 14:44 EDT [facility] ophthalmic technologist ID [id number] 10/05/2019 14:44 T [facility] HN LAB POC COMMENT (ACT) Test performed by Cardiology. Therapeutic interventaional range is dependent upon patient population and procedure type 10/05/2019 14:44 T [facility] Blood ARTERIAL BLOOD / Unknown 10/05/2019 14:35 EDT 10/05/2019 14:44 EDT Tim Marks MD POINT OF CARE TE ST ORDERABLES Performing Organization Address [facility] Co de Phone Number [facility] [address] [place] [address] * (ABNORMAL) POCT ACTIVATED CLOTTING TIME, KAOLIN ISTAT (10/05/2019 13:53 EDT) [facility] Signature iSTAT Activated Clotting Time 274(H) 74 - 137 sec 10/05/2019 14:01 EDT [facility] ophthalmic technologist ID [id number] 10/05/2019 14:01 EDT [facility] HN LAB POC COMMENT (ACT) Test performed by Cardiology. Therapeutic interventaional range is dependent upon patient population and procedure type 10/05/2019 14:01 EDT [facility] Blood ARTERIAL BLOOD / Unknown 10/05/2019 13:53 EDT 10/05/2019 14:01 EDT Tim Marks MD POINT OF CARE TE ST ORDERABLES Performing Organization Address [facility] Co de Phone Number [facility] [address] [place] [address] * CT CARDIAC ANGIO PULMONARY VEIN (10/05/2019 [...] sinotubular junction, normal variant. Mary Patel MD [facility] CT ORDERABLES * TYPE AND SCREEN (10/05/2019 9:55 EDT) ABO A 10/05/2019 10:54 EDT [facility] Rh Factor Positive 10/05/2019 10:54 EDT [facility] Antibody Screen Negative 10/05/2019 10:54 EDT [facility] Specimen Expires: 10/08/2019 @ 23:59 10/05/2019 10:54 EDT [facility] Blood VENOUS BLOOD / Unknown Venipuncture / Unknown 10/05/2019 9:55 EDT 10/05/2019 10:05 EDT Tim Marks MD BLOOD BANK TESTS [facility] [address] [place] [address] * MAGNESIUM (10/05/2019 5:32 EDT) Magnesium 2.4 1.7 - 2.8 mg/dL 10/05/2019 6:25 EDT [facility] Blood VENOUS BLOOD / Unknown Venipuncture / Unknown 10/05/2019 5:32 EDT 10/05/2019 5:56 EDT Lisa Montilla NP CHEMISTRY & B LOOD GAS ORDERABLES Performing Organization Address City/[facility]/ZIP Co de Phone Number [facility] [address] [place] [address] * ELECTROLYTES (10/05/2019 5:32 EDT) Sodium 137 136 - 145 mEq/L 10/05/2019 6:25 EDT [facility] Potassium 4.3 3.5 - 5.0 mEq/L 10/05/2019 6:25 EDT [facility] Chloride 103 96 - 110 mEq/L 10/05/2019 6:25 EDT [facility] CO2 Total 27 22 - 32 mEq/L 10/05/2019 6:25 EDT [facility] Blood VENOUS BLOOD / Unknown Venipuncture / Unknown 10/05/2019 5:32 EDT 10/05/2019 5:56 EDT Lisa Montilla COMMUNITY DEVELOPMENT COORDINATOR CHEMISTRY & B LOOD GAS ORDERABLES Performing Organization Address [facility] de Phone Number [facility] [address] [place] [address] * CREATININE (10/05/2019 5:32 EDT) Creatinine 0.87 0.66 - 1.25 mg/dL 10/05/2019 6:25 EDT [facility] eGFR 106 >60 mL/min/1.7 3m2 10/05/2019 6:25 EDT [facility] Comment:eGFR calculated jalyn funes CKD-EPI equation for non- Americans. Multiply eGFR by 1.16 for patients. Blood VENOUS BLOOD / Unknown Venipuncture / Unknown 10/05/2019 5:32 EDT 10/05/2019 5:56 EDT Lisa Montilla NP CHEMISTRY & B LOOD GAS ORDERABLES Performing Organization Address [facility] de Phone Number [facility] [address] [place] [address] * POST DOFETILIDE EKG (10/04/2019 22:50 EDT) 10/04/2019 22:5 0 EDT Narrative [facility] EKG - 10/07/2019 16:09 EDT ? The ? Test Date: ?2019-10-04 Pat Name: ? VALERY MILLER ?Department: ?? [place] [address] ? Room: ? [id number] Gender: ? Male ? [place] Electronic: ?? [id number] : ?1975 ? Requested By: ALEX MCDANIEL MD Order Number: [id number] ? Reading MD: ?? EMEKA HE MD ? Measurements Intervals ?[place] ? Rate: ? 73 ? P: ?61 NC: ? 148 ?QRS: ?29 QRSD: ? 108 [...] Note Emeka He MD - 10/07/2019 The Test Date: 2019-10-04 Pat Name: VALERY MILLER Department: [place] [address] Room: [facility] Gender: Male [place] Electronic: [id number] : 1975 Requested By: ALEX MCDANIEL MD Order Number: [id number] Reading MD: EMEKA HE MD Measurements Intervals [place] Rate: 73 P: 61 NC: 148 QRS: 29 QRSD: 108 T: 29 QT: 468 QTc: 519 Interpretive Statements SINUS RHYTHM WITH SINUS ARRHYTHMIA INCOMPLETE RIGHT BUNDLE BRANCH BLOCK POSSIBLE INFERIOR MYOCARDIAL INFARCTION, PROBABLY OLD I reviewed the tracing and have either agreed or edited the findings inthis report. Electronically Signed On 10-07-2019 16:09:22 EDT by EMEKA UMAÑA. Alex Mcdaniel MD CARDIAC ECG ORDERA BLES [facility] EKG * POST DOFETILIDE EKG (10/04/2019 10:49 EDT) 10/04/2019 10:4 9 EDT Narrative [facility] EKG - 10/15/2019 14:33 EDT ? The ? Test Date: ?2019-10-04 Pat Name: ? VALERY MILLER ?Department: ?? [place] ? Room: ? [id number] Gender: ? Male ? [place] Electronic: ?? [id number] : ?1975 ? Requested By: ALEX MCDANIEL MD Order Number: [id number] ? Reading : ?? JOURDAN VAIL MD ? Measurements Intervals ?[place] ? Rate: ? 75 ? P: ?68 NC: ? 174 ?QRS: ?30 QRSD: ? 109 ?T: ?36 QT: ? 415 ? QTc: ?464 ? Interpretive Statements SINUS RHYTHM Incomplete right bundle branch block NONSPECIFIC T-WAVE ABNORMALITY ??Edited by JOURDAN RODATRE MD on 10-12-2019 13:32:48 EDT. I reviewed the tracing and have either agreed or edited the findings in this report. Electronically Signed On 10-15-2019 14:33:37 EDT by JOURDAN VAIL MD. Procedure Note Jourdan Vail MD - 10/15/2019 The Test Date: 2019-10-04 Pat Name: VALERY MILLER Department: [place] [address] Room: [facility] Gender: Male [place] Electronic: [id number] : 1975 Requested By: ALEX MCDANIEL MD Order Number: [id number] Reading MD: JOURDAN VAIL MD Measurements Intervals [place] Rate: 75 P: 68 NC: 174 QRS: 30 QRSD: 109 T: 36 QT: 415 QTc: 464 Interpretive Statements SINUS RHYTHM Incomplete right bundle branch block NONSPECIFIC T-WAVE ABNORMALITY Edited by JOURDAN RODARTE MD on 10-12-2019 13:32:48 EDT. I reviewed the tracing and have either agreed or edited the findings inthis report. Electronically Signed On 10-15-2019 14:33:37 EDT by JOURDAN ANAYA. Alex Mcdaniel MD CARDIAC ECG ORDERA BLES [facility] EKG * MAGNESIUM (10/04/2019 6:08 EDT) Pathologist [facility] Magnesium 2.3 1.7 - 2.8 mg/dL 10/04/2019 6:57 EDT [facility] Blood VENOUS BLOOD / Unknown Venipuncture / Unknown 10/04/2019 6:08 EDT 10/04/2019 6:26 EDT Lisa Montilla NP CHEMISTRY & B LOOD GAS ORDERABLES [facility] [address] [place] [address] * ELECTROLYTES (10/04/2019 6:08 EDT) Sodium 138 136 - 145 mEq/L 10/04/2019 6:57 EDT [facility] Potassium 4.1 3.5 - 5.0 mEq/L 10/04/2019 6:57 EDT [facility] Chloride 101 96 - 110 mEq/L 10/04/2019 6:57 EDT [facility] CO2 Total 30 22 - 32 mEq/L 10/04/2019 6:57 EDT [facility] Blood VENOUS BLOOD / Unknown Venipuncture / Unknown 10/04/2019 6:08 EDT 10/04/2019 6:26 EDT Lisa Montilla NP CHEMISTRY & B LOOD GAS ORDERABLES Performing Organization Address [facility] de Phone Number [facility] [address] [place] [address] * CREATININE (10/04/2019 6:08 EDT) Creatinine 0.79 0.66 - 1.25 mg/dL 10/04/2019 6:57 EDT [facility] eGFR 110 >60 mL/min/1.7 3m2 10/04/2019 6:57 EDT [facility] Comment:eGFR calculated jalyn funes CKD-EPI equation for non- Americans. Multiply eGFR by 1.16 for patients. Blood VENOUS BLOOD / Unknown Venipuncture / Unknown 10/04/2019 6:08 EDT 10/04/2019 6:26 EDT Lisa Montilla NP CHEMISTRY & B LOOD GAS ORDERABLES Performing Organization Address [facility] Co de Phone Number [facility] [address] [place] [address] * POST DOFETILIDE EKG (10/03/2019 23:06 EDT) 10/03/2019 23:0 6 EDT Narrative [facility] EKG - 10/15/2019 14:33 EDT ? The ? Test Date: ?2019-10-03 Pat Name: ? VALERY MILLER ?Department: ?? [place] [address] ? Room: ? [id number] Gender: ? Male ? [place] Electronic: ?? [id number] : ?1975 ? Requested By: ALEX MCDANIEL MD Order Number: [id number] ? Reading MD: ?? JOURDAN VAIL MD ? Measurements Intervals ?[place] ? Rate: ? 56 ? P: ?56 NC: ? 182 ?QRS: ?38 QRSD: ? 110 [...] Note Jourdan Vail MD - 10/15/2019 The Test Date: 2019-10-03 Pat Name: VALERY MILLER Department: [place] [address] Room: [facility] Gender: Male [place] Electronic: [id number] : 1975 Requested By: ALEX MCDANIEL MD Order Number: [id number] Reading MD: JOURDAN VAIL MD Measurements Intervals [place] Rate: 56 P: 56 NC: 182 QRS: 38 QRSD: 110 T: 21 [...] Alex Mcdaniel MD CARDIAC ECG ORDERA BLES [facility] EKG * POST DOFETILIDE EKG (10/03/2019 11:19 EDT) 10/03/2019 11:1 9 EDT Narrative [facility] EKG - 10/28/2019 9:27 EDT ? [facility] ? Test Date: ?2019-10-03 Pat Name: ? VALERY MILLER ?Department: ?? [place] 4 ? Room: ? [id number] Gender: ? Male ? [place] Electronic: ?? [id number] : ?1975 ? Requested By: ALEX MCDANIEL MD Order Number: [id number] ? Reading MD: ?? JOURDAN VAIL MD ? Measurements Intervals ?[place] ? Rate: ? 51 ? P: ?57 NC: ? 176 ?QRS: ?38 QRSD: ? 113 [...] Note Jourdan Vail MD - 10/28/2019 The Test Date: 2019-10-03 Pat Name: VALERY MLILER Department: [place] [address] Room: [facility] Gender: Male [place] Electronic: [id number] : 1975 Requested By: ALEX MCDANIEL MD Order Number: [id number] Reading MD: JOURDAN VAIL MD Measurements Intervals [place] Rate: 51 P: 57 NC: 176 QRS: 38 QRSD: 113 T: 27 [...] Alex Mcdaniel MD CARDIAC ECG ORDERA BLES [facility] EKG * MAGNESIUM (10/03/2019 5:17 EDT) Magnesium 2.2 1.7 - 2.8 mg/dL 10/03/2019 6:17 EDT [facility] Blood VENOUS BLOOD / Unknown Venipuncture / Unknown 10/03/2019 5:17 EDT 10/03/2019 5:48 EDT Lisa Montilla NP CHEMISTRY & B LOOD GAS ORDERABLES Performing Organization Address [facility] Co de Phone Number [facility] [address] [place] [address] * ELECTROLYTES (10/03/2019 5:17 EDT) Sodium 138 136 - 145 mEq/L 10/03/2019 6:17 EDT [facility] Potassium 4.2 3.5 - 5.0 mEq/L 10/03/2019 6:17 EDT [facility] Chloride 103 96 - 110 mEq/L 10/03/2019 6:17 EDT [facility] CO2 Total 27 22 - 32 mEq/L 10/03/2019 6:17 EDT [facility] Blood VENOUS BLOOD / Unknown Venipuncture / Unknown 10/03/2019 5:17 EDT 10/03/2019 5:48 EDT Lisa Montilla NP CHEMISTRY & B LOOD GAS ORDERABLES Performing Organization Address [facility] Phone Number [facility] [address] [place] [address] * CREATININE (10/03/2019 5:17 EDT) Creatinine 0.76 0.66 - 1.25 mg/dL 10/03/2019 6:17 EDT [facility] eGFR 112 >60 mL/min/1.7 3m2 10/03/2019 6:17 EDT [facility] Comment:eGFR calculated usin g CKD-EPI equation for non- Americans. Multiply eGFR by 1.16 for patients. Blood VENOUS BLOOD / Unknown Venipuncture / Unknown 10/03/2019 5:17 EDT 10/03/2019 5:48 EDT Lisa Montilla NP CHEMISTRY & B LOOD GAS ORDERABLES Performing Organization Address City/[facility] Co de Phone Number [facility] [address] [place] [id number] * POST DOFETILIDE EKG (10/02/2019 22:35 EDT) 10/02/2019 22:3 5 EDT Narrative [facility] EKG - 10/15/2019 12:26 EDT ? The ? Test Date: ?2019-10-02 Pat Name: ? VALERY MILLER ?Department: ?? [place] 4 ? Room: ? [id number] Gender: ? Male ? Brazer Electronic: ?? [id number] : ?1975 ? Requested By: ALEX MCDANIEL MD Order Number: [id number] ? Reading : ?? HOPE LOUIS MD ? Measurements Intervals ?[place] ? Rate: ? 49 ? P: ?61 NC: ? 183 ?QRS: ?55 QRSD: ? 118 [...] Note Hope Louis MD - 10/15/2019 The Test Date: 2019-10-02 Pat Name: VALERY MILLER Department: [place] [address] Room: [facility] Gender: Male [place] Electronic: [id number] : 1975 Requested By: ALEX MCDANIEL MD Order Number: [id number] Reading MD: HOPE LOUIS MD Measurements Intervals [place] Rate: 49 P: 61 NC: 183 QRS: 55 QRSD: 118 T: 28 [...] CARDIAC ECG ORDERA BLES Performing Organization Address [facility] Co de Phone Number [facility] EKG * TSH (10/02/2019 18:22 EDT) [facility] TSH 2.56 0.47 - 4.68 uIU/mL 10/02/2019 19:16 EDT [facility] Blood VENOUS BLOOD / Unknown Venipuncture / Unknown 10/02/2019 18:22 EDT 10/02/2019 18:26 EDT Narrative [facility] - 10/02/2019 19:16 EDT The results of this assay can be falsely lowered due to the consumption of Biotin. Lisa Montilla NP CHEMISTRY & B LOOD GAS ORDERABLES Performing Organization Address [facility] Co de Phone Number [facility] [address] [place] [address] * MAGNESIUM (10/02/2019 18:22 EDT) [facility] Magnesium 2.2 1.7 - 2.8 mg/dL 10/02/2019 18:42 EDT [facility] Blood VENOUS BLOOD / Unknown Venipuncture / Unknown 10/02/2019 18:22 EDT 10/02/2019 18:26 EDT Lisa Montilla NP CHEMISTRY & B LOOD GAS ORDERABLES Performing Organization Address [facility] de Phone Number [facility] [address] [place] [address] * HEMOGLOBIN A1C (10/02/2019 18:22 EDT) [facility] Hemoglobin A1c 5.6 <5.7 % 10/05/2019 10:30 EDT [facility] Comment: Glycemic Status References: Normal: [...] Avg Glucose 114 mg/dL 0 10:30 EDT [facility] Comment: The eAG represents the A1c result expressed as average glucose in mg/dL. Blood VENOUS BLOOD / Unknown Venipuncture / Unknown 10/02/2019 18:22 EDT 10/02/2019 18:26 EDT Lisa Montilla NP CHEMISTRY & B LOOD GAS ORDERABLES Performing Organization Address [facility] de Phone Number [facility] [address] [place] [address] * (ABNORMAL) GLUCOSE, SERUM (10/02/2019 18:22 EDT) Glucose 106(H) 70 - 100 mg/dL 10/02/2019 18:42 EDT [facility] Blood VENOUS BLOOD / Unknown Venipuncture / Unknown 10/02/2019 18:22 EDT 10/02/2019 18:26 EDT Lisa Montilla NP CHEMISTRY & B LOOD GAS ORDERABLES Performing Organization Address [facility] Co de Phone Number [facility] [address] [place] [address] * ELECTROLYTES (10/02/2019 18:22 EDT) Sodium 139 136 - 145 mEq/L 10/02/2019 18:42 EDT [facility] Potassium 4.0 3.5 - 5.0 mEq/L 10/02/2019 18:42 EDT [facility] Chloride 103 96 - 110 mEq/L 10/02/2019 18:42 EDT [facility] CO2 Total 28 22 - 32 mEq/L 10/02/2019 18:42 EDT [facility] Blood VENOUS BLOOD / Unknown Venipuncture / Unknown 10/02/2019 18:22 EDT 10/02/2019 18:26 EDT Lisa Montilla NP CHEMISTRY & B LOOD GAS ORDERABLES Performing Organization Address [facility] de Phone Number [facility] [address] [place] [address] * CREATININE (10/02/2019 18:22 EDT) Creatinine 0.79 0.66 - 1.25 mg/dL 10/02/2019 18:42 EDT [facility] eGFR 110 >60 mL/min/1.7 3m2 10/02/2019 18:42 EDT [facility] Comment:eGFR calculated usin g CKD-EPI equation for non- Americans. Multiply eGFR by 1.16 for patients. Blood VENOUS BLOOD / Unknown Venipuncture / Unknown 10/02/2019 18:22 EDT 10/02/2019 18:26 EDT Lisa Montilla NP CHEMISTRY & B LOOD GAS ORDERABLES Performing Organization Address [facility] de Phone Number [facility] [address] [place] [address] * (ABNORMAL) COMPLETE BLOOD COUNT (10/02/2019 18:22 EDT) WBC 9.36 4.00 - 10.40 K/cmm 10/02/2019 18:34 EDT [facility] RBC 5.19 4.36 - 5.78 M/cmm 10/02/2019 18:34 T [facility] Hemoglobin 15.5 13.8 - 17.3 gm/dL 10/02/2019 18:34 EDT [facility] HCT 43.3 39.5 - 50.2 % 10/02/2019 18:34 T [facility] MCV 83 81 - 95 fl 10/02/2019 18:34 EDT [facility] MCH 29.9 27.6 - 33.0 pg 10/02/2019 18:34 EDT [facility] MCHC 35.8 32.8 - 36.4 gm/dL 10/02/2019 18:34 EDT [facility] RDW-CV 12.4 <14.2 % 10/02/2019 18:34 EDT [facility] RDW-SD 37.7 <46.0 fl 10/02/2019 18:34 EDT [facility] PLT 232 141 - 377 K/cmm 10/02/2019 18:34 EDT [facility] MPV 8.8(L) 9.5 - 12.7 fl 10/02/2019 18:34 EDT [facility] Blood VENOUS BLOOD / Unknown Venipuncture / Unknown 10/02/2019 18:22 EDT 10/02/2019 18:26 EDT Lisa Montilla NP HEMATOLOGY & PF4 ORDERABLES [facility] [address] [place] [address] * BUN (10/02/2019 18:22 EDT) BUN 12 10 - 26 mg/dL 10/02/2019 18:42 EDT [facility] Blood VENOUS BLOOD / Unknown Venipuncture / Unknown 10/02/2019 18:22 EDT 10/02/2019 18:26 EDT Lisa Montilla NP CHEMISTRY & B LOOD GAS ORDERABLES [facility] [address] [place] [address] * AST (10/02/2019 18:22 EDT) AST 27 15 - 46 U/L 10/02/2019 18:42 EDT [facility] Blood VENOUS BLOOD / Unknown Venipuncture / Unknown 10/02/2019 18:22 EDT 10/02/2019 18:26 EDT Lisa oMntilla COMMUNITY DEVELOPMENT COORDINATOR CHEMISTRY & B LOOD GAS ORDERABLES Performing Organization Address [facility] Co de Phone Number [facility] [address] [place] [address] * ALT (10/02/2019 18:22 EDT) ALT 25 <50 U/L 10/02/2019 18:42 EDT [facility] Blood VENOUS BLOOD / Unknown Venipuncture / Unknown 10/02/2019 18:22 EDT 10/02/2019 18:26 EDT Lisa Montilla COMMUNITY DEVELOPMENT COORDINATOR CHEMISTRY & B LOOD GAS ORDERABLES Performing Organization Address [facility] de Phone Number [facility] [address] [place] [address] * ALKALINE PHOSPHATASE (10/02/2019 18:22 EDT) Alkaline Phosphatase 53 38 - 126 U/L 10/02/2019 18:42 EDT [facility] Blood VENOUS BLOOD / Unknown Venipuncture / Unknown 10/02/2019 18:22 EDT 10/02/2019 18:26 EDT Lisa Montilla COMMUNITY DEVELOPMENT COORDINATOR CHEMISTRY & B LOOD GAS ORDERABLES Performing Organization Address [facility] de Phone Number [facility] [address] [place] [address] * EKG 12-LEAD (10/02/2019 18:17 EDT) 10/02/2019 18:1 7 EDT Narrative [facility] EKG - 10/16/2019 13:54 EDT ? The ? Test Date: ?2019-10-02 Pat Name: ? VALERY MILLER ?Department: ?? [place] 4 ? Room: ? [id number] Gender: ? Male ? [place] Electronic: ?? [id number] : ?1975 ? Requested By: LISA MONTILLA APRN Order Number: [id number] ? Reading MD: ?? VINNY NESBITT DE SA MD ? Measurements Intervals ?[place] ? Rate: ? 57 ? P: ?57 NC: ? 178 ?QRS: ?54 QRSD: ? 116 [...] Vinny Maldonado Sa, MD - 10/16/2019 The Test Date: 2019-10-02 Pat Name: VALERY MILLER Department: [place] [address] Room: [facility] Gender: Male [place] Electronic: [id number] : 1975 Requested By: LISA RONDON Order Number: [id number] Reading MD: VINNY MAJOR Measurements Intervals [place] Rate: 57 P: 57 NC: 178 QRS: 54 QRSD: 116 T: 35 [...] Lisa Montilla NP CARDIAC ECG O RDERABLES [facility] EKG documented in this encounter Visit Diagnoses [...] (HCC-CMS) Atrial fibrillation documented in this encounter Administered [...] Sat10/06/19 at 1552, Pain, Routine, Recovery (only) ketOROLAC (TORADOL) injection 15 mg 15 mg, [...] Discontinued, Routine 2049 (Given - Provider: Sultana Alvarado RN) 122 (JUL Hold - Provider: Fortino Marshall RN - Reason: Patient off unit)1820 (JUL Unhold - Provider: Lois Collado, SILVIA)2015 [...] 2016 (Given - Provider: Michelle Rodriguez, RN) 011 (Given - Provider: Michelle Rodriguez, RN)0650 (Given - Provider: Michelle Rodriguez RN)1300 (Canceled Entry - Provider: Batch Job User Admin - Comment: Automatically canceled at discontinue of medication order) lisinopriL (PRINIVIL) tablet 20 mg 20 mg, oral, DAILY, First dose on Sat10/04/19 at 0915, Until Discontinued, Routine 0921 (Given - Provider: Bacilio Wayne RN) 0836 (Given - Provider: Bacilio Wayne RN)1222 (MAR Hold - Provider: Fortino Marshall RN - Reason: Patient off unit)182 (MAR Unhold - Provider: Lois Collado, SILVIA) 0809 (Given - Provider: Ya Ding RN) rivaroxaban (XARELTO) tablet 20 mg 20 mg, oral, DAILY WITH DINNER, First dose on Sat10/02/19 at 1845, Until Discontinued, Indications: prevention of thromboembolism in paroxysmal atrial fib, Is this a new start or continuation of therapy? Continuation, Routine 173 (Given - Provider: Brian Dorado RN) 1222 (MAR Hold - Provider: Fortino Marshall RN - Reason: Patient off unit)1700 (Automatically Held - Provider: Fortino Marshall, RN)182 (MAR Unhold - Provider: Lois Collado RN)2128 (Given - Provider: Michelle Rodriguez RN) sodium chloride 0.9 % (flush) flush 3 mL 3 mL, intravenous, EVERY 8 HOURS, First dose on Sat10/02/19 at 1815, Until Discontinued, Routine 0001 (Not Given - Provider: Bernarda Martinez RN - Reason: Patient/family refused - Comment: asleep)0924 (Given - Provider: Bacilio Wayne, SILVIA)1630 (Given - Provider: Brian Dorado RN)2347 (Given - Provider: Sultana Alvarado RN) 0837 (Given - Provider: Bacilio Wayne RN)1222 (MAR Hold - Provider: Fortino Marshall RN - Reason: Patient off unit)1600 (Automatically Held - Provider: Fortino Marshall RN)1821 (MAR Unhold - Provider: Lois Collado RN) 0111 (Given - Provider: Michelle Rodriguez RN)0810 (Given - Provider: Ya Ding, SILVIA) testosterone (ANDROGEL) 20.25 mg/1.25 gram (1.62 %) transdermal gel gel in metered-dose pump 2 Pump 2 Pump (40.5 mg), topical, DAILY, First dose on Sat10/02/19 at 1830, Until Discontinued 0844 (Given - Provider: Bacilio Wayne RN) 0836 (Given - Provider: Bacilio Wayne RN)1222 (MAR Hold - Provider: Fortino Marshall RN - Reason: Patient off unit)1821 (MAR Unhold - Provider: Lois Collado RN) 1002 (Given - Provider: Ya Ding RN) [...] 25,000 uni t/250 mL infusion 1 10/05/2019 iohexoL (OMNIPAQUE 350) solution 100 mL 1 0 10/05/2019 ketOROLAC (TORADOL) injection 15 mg 1 10/04 lactated ringers (LR) infusion 1 10/05/2019 metoCLOPramide (REGLAN) injection 10 mg 1 0 10/05/2019 naloxone (NARCAN) injection 0.2 mg 1 2019 ondansetron (PF) (ZOFRAN) injection 4 mg 1 10/05/2019 protamine 10 mg/mL injection 1 10/05/2019 sodium chloride 0.9 % (flush) flush 3 mL 2 10/05/2019 10/02/2019 dofetilide (TIKOSYN) capsule 125 mcg 1 09/24 lisinopriL (PRINIVIL) tablet 20 mg 1 2019 dofetilide (TIKOSYN) capsule 250 mcg 1 01/2020 DILTiazem (TIAZAC) ER capsule 120 mg 1 12/2019 dofetilide (TIKOSYN) capsule 500 mcg 1 12/2019 rivaroxaban (XARELTO) tablet 20 mg 1 2019 testosterone (ANDROGEL) 20.2 5 mg/1.25 gram (1.62 %) transdermal gel gel in metered-dose pump 2 Pump 1 10/02/2019 Nursing Count Last Ordered Date First Orde [...] 10/05/2019 documented in this encounter Care Teams Lighter Captain Relationship Specialty Start Date End Date Clayton Reid MD [address] [phone] PCP - General 10/02/19 documented as of this encounter
--- OUTSIDE RECORDS SUMMARY | 2023-12-15 11:03 | XMS_ITS | Encounter Summary ---
Author Organization [facility] Address [address] [place] [address] Care Team Providers Care Assistant Housekeeping Manager Name Role Phone Unknown, Provider Primary Care Provider [phone] Clayton Reid MD Primary Care Provider [phone] Encounter Details Date Type Department Care Team (Late st Contact Info) Description 08/25/2019 Lab Requisition [facility] Pathology & Laboratory Medicine - [address] [address] Unknown, Provider, Social History Tobacco Use Types [...] Procedure Name Priority Date/Time Associated Diagnosis Comments ACUTE HEPATITIS PROFILE Routine 08/24/2019 16:37 EDT documented in this encounter Results * ACUTE HEPATITIS PROFILE (08/24/2019 16:37 EDT) Hep B Surface Ag Negative Negative 08/26/2019 11:53 EDT [facility] Hep C Antibody Negative Negative 08/26/2019 11:53 EDT [facility] Hepatitis A Antibody, IgM Negative Negative 08/26/2019 11:53 EDT [facility] Comment: The results of this assay can be falsely lowered due to the consumption of Biotin. Hepatitis B Core Ab, Total Negative Negative 08/26/2019 11:53 EDT [facility] Blood VENOUS BLOOD / Unknown 08/24/2019 16:37 EDT 08/25/2019 21:00 EDT Provider Unknown CHEMISTRY & BLOOD GA S ORDERABLES Performing Organization Address City/State/[facility] Co de Phone Number [facility] [address] [place] [address] documented in this encounter Visit Diagnoses Not on filedocumented in this encounter Care Teams Assistant Housekeeping Manager Relationship Specialty Start Date End Date Unknown, Provider, PCP - General 01/26/16 10/01/19 Clayton Reid MD [address] [phone] PCP - General 10/02/19 documented as of this encounter
--- OUTSIDE RECORDS SUMMARY | 2023-12-15 11:03 | XMS_ITS | Encounter Summary ---
Author Organization [facility] Address [address] [place] [address] Care Team Providers Care Sample Color Maker Name Role Phone Unknown, Provider Primary Care Provider Reason for Visit * Reason Onset Date Comments Cardiac Testing 09/22/2019 Encounter Details Date Type Department Care Team (Late st Contact Info) Description 09/22/2019 Telephone [facility] Cardiology [place] [address] [place] [address] Vick Romero MD [address] [place] [address] Cardiac Testing Social History Tobacco Use Types Packs/Day Years [...] Telephone Encounter - Vick Romero MD - 09/22/2019 1936 EDT Abnormal EKG message from [employer] High rate of afib 180 bpm pt asx. Sustained as per contact from company Per rep, Notified Dr. Mcdaniel at 4:11pm for the same rate and rhythm earlier today Awaiting faxed scripts but not yet received Attempted to call pt at listed number [phone] but unable to leave VM (# has been disconnected) Will forward to Dr. Jonas Romero MD Hand Tool Lapper, PGY-4 Pager [phone] documented in this encounter Plan of Treatment Not on file documented as of this encounter Visit Diagnoses Not on filedocumented in this encounter Care Teams Sample Color Maker Relationship Specialty Start Date End Date Unknown, Provider, PCP - General 01/26/16 10/01/19 documented as of this encounter
[2023-12-15] MEDS: Doxycycline Hyclate 100 MG, 2 CAPS/BTL PO (12:39)
[2023-12-15] MEDS: Tetanus & Diphtheria Tox,ADULT 0.5 ML VIAL IM (12:39)
--- NOTE | 2023-12-17 21:12 | W.ED.GENAD ---
Discharge Plan Disposition Patient Disposition: Home Condition: Stable Discharge Details Clinical Impression: Cellulitis, Puncture Primary Care Provider: GILMAR DUNCAN ED Provider: Sandy López Home Meds and New Rx's Prescriptions: New doxycycline hyclate 100 mg tablet 100 mg PO BID Qty: 14 0RF mupirocin 2 % ointment 1 applic topical TID Qty: 15 0RF Continued ketoconazole 2 % cream 1 applic topical DAILY Qty: 120 6RF Rx Instructions: Apply to toenails and twice daily metformin 500 mg tablet extended release 24 hr 1,000 mg PO BID tadalafil 5 mg tablet 5 mg PO DAILY atorvastatin 40 mg tablet 40 mg PO DAILY losartan-hydrochlorothiazide 50-12.5 mg tablet 1 tab PO HS Patient Comments: TAKE 1 TABLET BY MOUTH ONCE A DAY FOR HIGH BLOOD PRESSURE aspirin [Aspir-81] 81 MG tablet,delayed release (DR/EC) 81 mg PO DAILY diltiazem HCl 120 mg capsule,extended release 24 hr 120 mg PO HS Patient Comments: TAKE ONE CAPSULE BY MOUTH AT BEDTIME Discharge Instructions Instructions: Cellulitis (Skin Infection), Adult ED Additional Instructions: Apply mupirocin 3 times daily with a bandage over area of puncture try to keep your left wrist elevated and decrease the use is much as possible so that it will heal Yogurt daily while on antibiotic take antibiotic until completed, this antibiotic will make you sensitive to the sun (you will burn so where hat and sunglasses when outside) recheck in 48 hours return with spreading redness, fever, worsening pain Referrals: GILMAR DUNCAN, [employer] [Primary Care Provider] - 2 days Discharge Data Discharge Date/Time-TO BE ENTERED AT DEPARTURE: 12/15/23 12:35 HPI General Date/Time Provider Initiated Documentation: 12/15/23 12:00. HPI Narrative: This 48-year-old male presents with injury to left wrist. Poked with a pig pen wire yesterday accidentally. Unsure regarding tetanus. Presents secondary to redness surrounding site. Denies fever or systemic signs of illness. Denies difficulty with flexion extension of wrist Related Data Home Medications ?Medication ?Instructions ?Recorded ?Confirmed aspirin 81 mg tablet,delayed 81 mg PO DAILY 09/22/16 12/15/23 release (Aspir-) diltiazem HCl 120 mg capsule,24 120 mg PO HS 10/03/20 12/15/23 hr,extended release atorvastatin 40 mg tablet 40 mg PO DAILY 06/19/23 12/15/23 metformin 500 mg tablet,extended 1,000 mg PO BID 06/19/23 12/15/23 release 24hr (osmotic) tadalafil 5 mg tablet 5 mg PO DAILY 06/19/23 12/15/23 losartan 50 mg-hydrochlorothiazide 1 tab PO HS 07/04/23 12/15/23 12.5 mg tablet ketoconazole 2 % topical cream 1 applic topical DAILY #120 grams 10/30/23 12/15/23 doxycycline hyclate 100 mg tablet 100 mg PO BID #14 tabs 12/15/23 mupirocin 2 % topical ointment 1 applic topical TID #15 grams 12/15/23 Previous Rx's ?Medication ?Instructions ?Recorded ketoconazole 2 % topical cream 1 applic topical DAILY #120 grams 10/30/23 doxycycline hyclate 100 mg tablet 100 mg PO BID #14 tabs 12/15/23 mupirocin 2 % topical ointment 1 applic topical TID #15 grams 12/15/23 Allergies Allergy/AdvReac Type Severity Reaction Status Date / Time clindamycin Allergy Mild Skin Rash Verified 12/15/23 10:51 General Stated Complaint: RashLesion MAKAYLA: 4 Exam Narrative Exam Narrative: Left wrist with 2 inch region of erythema with puncture noted, range of motion intact, strength and sensation intact. No abscess formation visualized. No lymphangitis, no crepitus Course Vital Signs Vital signs: Vital Signs Temperature 36.4 C 12/15/23 10:48 Pulse 66 12/15/23 10:48 Respiratory Rate 12 12/15/23 10:48 Blood Pressure 151/95 H 12/15/23 10:48 Pulse Oximetry 97 12/15/23 10:48 Temperature 36.4 C 12/15/23 10:48 Temperature Source Skin 12/15/23 10:48 Pulse 66 12/15/23 10:48 Respiratory Rate 12 12/15/23 10:48 Respiratory Effort Normal 12/15/23 12:36 Blood Pressure 151/95 H 12/15/23 10:48 Blood Pressure Position Sitting 12/15/23 10:48 Pulse Oximetry 97 12/15/23 10:48 Oxygen Delivery Method Room Air 12/15/23 10:48 Oxygen Flow Rate 0 12/15/23 10:48 Pain Level 1 12/15/23 10:48 Medical Decision Making 48-year-old male alert oriented, presenting with cellulitis after a puncture yesterday. Recommend x-ray and fingerstick glucose secondary to diabetes. patient declines these test at this time. Fully alert, oriented, of decisional capacity, agreeable to antibiotics and a splint with recommendation to elevate wrist is much as possible. No evidence of secondary abscess. Recheck in 48 hours encouraged return precautions reviewed and patient expressed understanding. No signs of systemic illness at time of this assessment, lower suspicion for foreign body clinically. Quality:SDOH Health Related Social Needs: No Data to Display PFSH All Active Problems (Updated 12/15/23 @ 12:10 by BENEDICT Briggs) Puncture (Acute) Cellulitis (Acute) Cramping of feet (Acute) Onychomycosis (Acute) Ulcer of right foot limited to breakdown of skin (Acute) Tinea pedis (Acute) Low serum vitamin B12 (Acute) Neuropathy (Acute) Encounter for screening colonoscopy (Acute) Hypertension (Chronic) Erectile dysfunction (Acute) Chronic pain (Chronic) Morbid obesity (Acute) Anxiety and depression (Chronic) High triglycerides (Acute) Testicular failure (Acute) FABIO (obstructive sleep apnea) (Chronic) Dyslipidemia (Acute) Type 2 diabetes mellitus (Acute) Metatarsalgia (Acute) Epiploic appendagitis (Acute) MCL sprain of left knee (Acute 10/03/20) Contusion of left knee (Acute 10/03/20) Knee swelling (Acute) Medical History History of atrial fibrillation Candidal balanitis Cellulitis of left foot (10/03/16) Surgical History History of colonoscopy biopsies Social History Smoking/Tobacco Use Status: Never Smoking risk assessment performed?: Yes Alcohol Intake: current Alcohol Intake frequency: a few times a week Drug use: Never Substance use type: does not use Housing: house Do you feel safe at home: Yes Do you feel safe in your relationship?: Yes
== END 2023-12-15 12:35 | disposition home or self-care (01) ==
PROVIDERS: Emergency Provider Physician Assistant; PCP Nurse Practitioner Family
DX: S61.531A Puncture wound without foreign body of right wrist, initial encounter (principal); L03.113 Cellulitis of right upper limb; E11.9 Type 2 diabetes mellitus without complications; Z23 Encounter for immunization; W22.8XXA Striking against or struck by other objects, initial encounter
CPT/HCPCS: 29125; 90471; 90714; 99283

== ENCOUNTER 2024-06-01 16:29 | Outpatient (REF) | payer BC, SELFPAY ==
[2024-06-01 16:49] LABS: Hemoglobin A1C 6.6 % (<5.7)
[2024-06-01 17:12] LABS: ALT 53 U/L (16-63); AST 24 U/L (15-37); Alkaline Phosphatase 79 U/L (46-116); Anion Gap 9.8 mmol/L (3-11); BUN 14 mg/dL (7-18); Bilirubin, Total 0.52 mg/dL (0.2-1.0); CO2 28.2 mmol/L (21.0-32.0); CREATININE 1.1 mg/dL (0.70-1.30); Calcium 9.1 mg/dL (8.5-10.1); Calculated LDL 53 mg/dL (<100); Chloride 104 mmol/L (98-107); Cholesterol 136 mg/dL (<200); Estimated GFR 83.32 (mL/min/1.73m2); Glucose 130 mg/dL (74-106); HDL Cholesterol 36 mg/dL (40-60); Sodium 142 mmol/L (136-145); Triglyceride 238 mg/dL (<150)
[2024-06-02 12:23] LABS: Hepatitis C Ab w Rflx HCV PCR Negative (Negative)
== END 2024-06-01 16:30 | disposition home or self-care (01) ==
LOC: NCHCN 16:29
PROVIDERS: PCP Nurse Practitioner Family; Visit Provider Nurse Practitioner Family
DX: Z00.00 Encounter for general adult medical examination without abnormal findings (principal)
CPT/HCPCS: 80053; 80061; 86803; 83036